=== PATIENT | female | born 1995 | race Caucasian/White ===

== ENCOUNTER 2019-09-23 18:46 | Emergency (ER) | payer MEDICAID, SELFPAY | END 2019-09-23 19:31 | disposition home or self-care (01) | PROVIDERS: Emergency Provider Emergency Medicine; Family Provider Physician Assistant; Visit Provider Emergency Medicine | DX: J11.1 Influenza due to unidentified influenza virus with other respiratory manifestations (principal); H66.001 Acute suppurative otitis media without spontaneous rupture of ear drum, right ear; J45.909 Unspecified asthma, uncomplicated | CPT/HCPCS: 71045; 96372; 99284; J0696; J1100; J2001 ==

== ENCOUNTER 2019-10-17 08:39 | Outpatient (CLI) | payer MEDICAID, SELFPAY ==
--- NOTE | 2019-10-17 08:44 | CT_ITS ---
WS: [id number] CT ABDOMEN AND PELVIS NONCONTRAST HISTORY: HEMATURIA TECHNIQUE: Imaging performed through the abdomen and pelvis. Coronal and sagittal reformats are submi tted. All CT scans at [facility] use at least one of these dose optimization techniques: automated exposure control; mA and/or kV adjustment per patient size (includes targeted exams where d ose is matched to clinical indication); or iterative reconstruction. DLP: 1028.26 mGy.cm COMPARISON: None available. Lower thorax: Lung bases are clear. No hiatal hernia. Liver: Normal, no mass or intrahepatic dilatation. Gallbladder: Unremarkable. Pancreas: Poorly visualized pancreas due to lack of contrast. No abnormality. Spleen: Normal. Adrenal glands: Normal. Right kidney: Normal size with no stones, masses or atrophy. Left kidney: Normal size with no stones, mass or atrophy. Abdominal aorta and IVC are unremarkable. No free fluid, intraperitoneal air or significant lymphadenopathy. GI tract: Unremarkable. Abdominal wall: Intact. Pelvis: Normal. Tiny calcific densities in the pelvis appear to be external to the urological system. Osseous structures: Unremarkable. CT/CT kidney stone [id number] IMPRESSION: 1. No renal or ureteral calcifications or obstruction. 2. Normal appendix. 3. Tiny calcific densities in the pelvis or external to the urological system and probably phleboliths.
== END 2019-10-17 08:40 | disposition home or self-care (01) ==
LOC: RAD 08:42
PROVIDERS: Family Provider Physician Assistant; PCP Physician Assistant; Visit Provider Nurse Practitioner Family
DX: N28.89 Other specified disorders of kidney and ureter (principal); R31.9 Hematuria, unspecified
CPT/HCPCS: 74176

== ENCOUNTER → 2019-11-19 07:32 | Outpatient (BNVA) | payer MEDICAID, SELFPAY | PROVIDERS: Family Provider Physician Assistant; PCP Physician Assistant; Visit Provider Nurse Practitioner Psychiatric/Mental Health | DX: F33.1 Major depressive disorder, recurrent, moderate (principal); F43.12 Post-traumatic stress disorder, chronic; F41.1 Generalized anxiety disorder; F71 Moderate intellectual disabilities | CPT/HCPCS: 99214 ==

== ENCOUNTER 2019-12-02 20:24 | Emergency (ER) | payer MEDICAID, SELFPAY ==
[2019-12-02 20:30] VITALS: BP 142/77; PULSE 108; RESP 17; TEMP 37.2; O2SAT 100; BMI 26.7
[2019-12-02 21:02] LABS: Basophils % 0.3 %; Eosinophils # 0.1 10^3/uL (0.0-0.8); Eosinophils % 0.8 %; Hematocrit 44.2 % (37.0-47.0); Hemoglobin 14.2 g/dL (11.5-15.3); Lymphocytes # 0.6 10^3/uL (0.8-4.8); Lymphocytes % 7.1 %; Mean Corpuscular HGB Conc 32.1 g/dL (30.0-36.0); Mean Corpuscular Volume 90.4 fL (81-99); Mean Platelet Volume 11.9 fL (7.4-10.4); Monocytes # 0.3 10^3/uL (0.2-0.9); Monocytes % 3.3 %; Neutrophils # 7.9 10^3/uL (1.8-7.7); Neutrophils % 88.3 %; Nucleated Red Blood Cells % 0 %; Platelet Count 279 10^3/cmm (130-400); Red Blood Count 4.89 10^6/uL (4.1-5.3)
[2019-12-02 22:09] LABS: Alanine Aminotransferase 14 U/L (0-33); Albumin Level 4.4 g/dL (3.5-5.2); Alkaline Phosphatase 78 IU/L (35-105); Anion Gap 20.6 (5-19); Blood Urea Nitrogen 12 mg/dL (6-20); Calcium 9.2 mg/dL (8.5-10.5); Carbon Dioxide 17 mmol/L (22-29); Chloride 105 mmol/L (98-107); Globulin 3.1 g/dL (1.3-4.6); Glomerular Filtration Rate 104.6 mL/min (90-130); Glucose 83 mg/dL (65-115); Osmolality Calculated 281 mOsm/kg (285-295); Potassium 4.6 mmol/L (3.5-5.1); Sodium 138 mmol/L (136-145); Total Bilirubin 0.4 mg/dL (0.15-1.2); Total Protein 7.5 g/dL (6.6-8.7)
[2019-12-02 22:15] LABS: Aspartate Amino Transferase 20 U/L (0-32)
--- NOTE | 2019-12-02 23:37 | ED_ITS ---
Entered by Elsa Han, acting as scribe for Hernandez Mcgee MD Dec 02, 2019 20:24 HPI - Abdominal Pain General: Chief Complaint: Abdominal Pain Stated Complaint: ABD PAIN/BACK PAIN Time Seen by Provider: 12/02/19 23:30 Source: patient Mode of arrival: ambulatory Limitations: no limitations History of Present Illness: HPI narrative: 24 yo f came to the er pov for abd pain and back pain. Pt states that she has had some diarrhea, nausea, vomiting and black stools. Onset was last night. PTs pcp is at [facility]. Pt said that her abd pain is epigastric in nature. States it is worse with eating. MD elicited complaint: abdominal pain and other (back pain) Onset (ago): day(s) (yesterday) Pain Consistency: constant Location: None Severity: mild Quality: sharp Migration to: no migration Relieving factors: nothing Associated Symptoms: Reports change in bowel habits (dark stool ), diarrhea, nausea and vomiting; Denies chills, dysuria and fever(s) Related Data: Patient : No Review of Systems General: Reports: other (negative unless marked) Const: Denies: fever, chills, body aches or change in appetite Eyes: Denies: blurry vision or eye discomfort ENMT: Denies: throat pain or dental pain Card: Denies: chest pain Resp: Denies: shortness of breath GI: Reports: nausea, vomiting, diarrhea and change in bowel habits (dark stool ) : Denies: painful urination Musc: Denies: neck pain or back pain Skin/Breast: Denies: rash Neuro: Denies: headache Psych: Denies: depression Jarred/Lymph: Denies: easy bruising All/Imm: Denies: hives PFSH ED PFSH: Medical History Chronic post-traumatic stress disorder Generalized anxiety disorder Major depressive disorder, recurrent episode, moderate with anxious distress Moderate intellectual disabilities Social History Smoking and tobacco status: never smoked Second hand smoke exposure: Yes Alcohol intake: never Adopted: No Caregiver/support person: Yes Lives independently: No Household members: family Marital status: Single service: No Current occupational status: disabled Current gender identity: Female Physical Exam Const: COMMON NORMALS: no apparent distress, oriented x3 and healthy appearing HENMT: COMMON NORMALS: normocephalic and head/scalp atraumatic HEAD & SCALP: normocephalic and atraumatic Eye: COMMON NORMALS: PERRL and EOMs intact bilaterally PUPIL: Yes PERRL Neck/C-Spine: COMMON NORMALS: full ROM and supple Chest: COMMONS NORMALS: inspection of chest normal and palpation of chest normal Resp: COMMON NORMALS: normal respiratory effort, no retractions, no use of accessory muscles and clear to auscultation bilaterally AUSCULTATION: clear to auscultation bilaterally Cardio: COMMON NORMALS: regular rate, regular rhythm and no murmurs RATE: regular rate RHYTHM: regular rhythm GI: COMMON NORMALS: normal to inspection, nondistended, normoactive bowel sounds, soft to palpation, non-tender and no masses PALPATION: Yes soft Extremity: COMMON NORMALS: normal to inspection and full ROM Neuro: COMMON NORMALS: oriented x3, moves all extremities and no focal motor deficits Psych: COMMON NORMALS: mental status grossly normal, thought process normal and cooperative THOUGHT PROCESS: normal thought process Skin: COMMON NORMALS: no rashes or lesions noted and no wounds GENERAL SKIN EXAM: no rashes or lesions noted Course Vital Signs: Vital signs: Vital Signs Temperature 98.9 F 12/02/19 20:30 Pulse Rate 102 H 12/03/19 01:26 Respiratory Rate 18 12/03/19 01:26 Blood Pressure 106/81 12/03/19 01:26 Pulse Oximetry 99 12/03/19 01:26 MDM - Abdominal Pain MDM Narrative: Medical decision making narrative: Patient presents with epigastric abdominal pain that is likely gastritis in nature. GI cocktail completely took her pain away and her abdominal exam here is benign at discharge. She has no signs of cholecystitis or appendicitis. Patient's lab work here is normal. Will prescribe her Prilosec and she is to follow-up with her primary care doctor in 3 to 5 days return to the ER if worsening. Lab Data: Labs: Lab Results 12/02/19 12/02/19 12/02/19 Range/Units 00:07 20:49 21:50 WBC 9.0 (4.0-10.0) 10^3/ uL RBC 4.89 (4.1-5.3) 10^6/u L Hgb 14.2 (11.5-15.3) g/dL Hct 44.2 (37.0-47.0) % MCV 90.4 (81-99) fL MCH 29.0 (28.0-34.0) pg MCHC 32.1 (30.0-36.0) g/dL RDW 14.0 (12.1-15.1) % Plt Count 279 (130-400) 10^3/c mm MPV 11.9 H (7.4-10.4) fL Neut % (Auto) 88.3 % Lymph % (Auto) 7.1 % Rich % (Auto) 3.3 % Eos % (Auto) 0.8 % Baso % (Auto) 0.3 % Neut # (Auto) 7.9 H (1.8-7.7) 10^3/u L Lymph # (Auto) 0.6 L (0.8-4.8) 10^3/u L Rich # (Auto) 0.3 (0.2-0.9) 10^3/u L Eos # (Auto) 0.1 (0.0-0.8) 10^3/u L Baso # (Auto) 0.0 (0.0-0.1) 10^3/u L Nucleated RBC % (a uto) 0 % Nucleated RBCs # 0.0 /100WBC Sodium 138 (136-145) mmol/L Potassium 4.6 (3.5-5.1) mmol/L Chloride 105 (98-107) mmol/L Carbon Dioxide 17 L (22-29) mmol/L Anion Gap 20.6 H (5-19) BUN 12 (6-20) mg/dL Creatinine 0.7 (0.5-0.9) mg/dL GFR Calculation 104.6 (90-130) mL/min Glucose 83 (65-115) mg/dL Calculated Osmolal ity 281 L (285-295) mOsm/k g Calcium 9.2 (8.5-10.5) mg/dL Total Bilirubin 0.4 (0.15-1.2) mg/dL AST 20 (0-32) U/L ALT 14 (0-33) U/L Alkaline Phosphata se 78 (35-105) IU/L Total Protein 7.5 (6.6-8.7) g/dL Albumin 4.4 (3.5-5.2) g/dL Globulin 3.1 (1.3-4.6) g/dL Lipase 27 (13-60) U/L HCG, Qual (Negative) 12/02/19 Range/Units 23:30 WBC (4.0-10.0) 10^3/ uL RBC (4.1-5.3) 10^6/u L Hgb (11.5-15.3) g/dL Hct (37.0-47.0) % MCV (81-99) fL MCH (28.0-34.0) pg MCHC (30.0-36.0) g/dL RDW (12.1-15.1) % Plt Count (130-400) 10^3/c mm MPV (7.4-10.4) fL Neut % (Auto) % Lymph % (Auto) % Rich % (Auto) % Eos % (Auto) % Baso % (Auto) % Neut # (Auto) (1.8-7.7) 10^3/u L Lymph # (Auto) (0.8-4.8) 10^3/u L Rich # (Auto) (0.2-0.9) 10^3/u L Eos # (Auto) (0.0-0.8) 10^3/u L Baso # (Auto) (0.0-0.1) 10^3/u L Nucleated RBC % (a uto) % Nucleated RBCs # /100WBC Sodium (136-145) mmol/L Potassium (3.5-5.1) mmol/L Chloride (98-107) mmol/L Carbon Dioxide (22-29) mmol/L Anion Gap (5-19) BUN (6-20) mg/dL Creatinine (0.5-0.9) mg/dL GFR Calculation (90-130) mL/min Glucose (65-115) mg/dL Calculated Osmolal ity (285-295) mOsm/k g Calcium (8.5-10.5) mg/dL Total Bilirubin (0.15-1.2) mg/dL AST (0-32) U/L ALT (0-33) U/L Alkaline Phosphata se (35-105) IU/L Total Protein (6.6-8.7) g/dL Albumin (3.5-5.2) g/dL Globulin (1.3-4.6) g/dL Lipase (13-60) U/L HCG, Qual Negative (Negative) Discharge Plan Discharge Patient Disposition: Home, Self-Care Clinical Impression: Abdominal pain Qualifiers: Abdominal location: epigastric Qualified Code(s): R10.13 - Epigastric pain Condition: Stable Prescriptions: New Prilosec OTC 20 mg tablet,delayed release (DR/EC) 20 mg PO DAILY 70 Days RF: 0 No Action sertraline [Zoloft] 100 mg tablet 100 mg PO .morning Qty: 30 RF: 3 trazodone 50 mg tablet 50 mg PO .bedtime PRN (Reason: sleep) Qty: 60 RF: 3 amoxicillin-pot clavulanate [Augmentin] 875-125 mg tablet 1 tab PO BID Qty: 20 RF: 0 promethazine-DM 6.25-15 mg/5 mL syrup 5 ml PO Q6H Qty: 150 RF: 0 fluticasone propionate [Flonase Allergy Relief] 50 mcg/actuation spray,suspension 1 spray INTRANASAL Q12H Qty: 9.9 RF: 0 Discharge Orders: Discharge Order (Routine); Ordered 12/03/19 Ordered By: Hernandez Mcgee Referrals: Diana Brooks PA [Primary Care Provider] - 1-3 days Discharge Diet: Advance as tolerated Discharge Activity: Resume usual activity Patient Instructions: Gastritis (ED), Abdominal Pain (ED) Discharge Date/Time: 12/03/19 01:27 Coding Level of Care Code ED Fire Equipment Operator for Chg Fwd The documentation recorded by the Guille gasca Stephanie Lyn, accurately reflects the service I personally performed and the decisions made by Everardo merchant Korby, MD Dec 02, 2019 20:24
[2019-12-02 23:39] VITALS: BP 126/77; PULSE 106; RESP 18; O2SAT 98
[2019-12-02 23:40] LABS: HCG Qualitative Urine. Negative (Negative)
[2019-12-02] MEDS: lidocaine 2% viscous 15 ML, aluminum-mag hydrox-simethicon 30 ML, sucralfate oral liq 1 GM PO (23:45)
[2019-12-02] MEDS: ondansetron 4 MG Tablet PO (23:45)
[2019-12-03 00:30] LABS: Lipase 27 U/L (13-60)
[2019-12-03 01:26] VITALS: BP 106/81; PULSE 102; RESP 18; O2SAT 99
== END 2019-12-03 01:27 | disposition home or self-care (01) ==
PROVIDERS: Emergency Provider Emergency Medicine; Family Provider Physician Assistant; PCP Physician Assistant
DX: R10.13 Epigastric pain (principal)
CPT/HCPCS: 12345; 36415; 80053; 81025; 83690; 85025; 99282; 99283; Q0162

== ENCOUNTER → 2020-01-10 08:19 | Outpatient (BNVA) | payer MEDICAID, SELFPAY | PROVIDERS: Family Provider Physician Assistant; PCP Physician Assistant; Visit Provider Nurse Practitioner Psychiatric/Mental Health | DX: F33.1 Major depressive disorder, recurrent, moderate (principal); F43.12 Post-traumatic stress disorder, chronic; F41.1 Generalized anxiety disorder; F71 Moderate intellectual disabilities; F33.2 Major depressive disorder, recurrent severe without psychotic features | CPT/HCPCS: 99214 ==

== ENCOUNTER → 2020-02-07 08:27 | Outpatient (BNVA) | payer MEDICAID, SELFPAY | PROVIDERS: Family Provider Physician Assistant; PCP Physician Assistant; Visit Provider Nurse Practitioner Psychiatric/Mental Health | DX: F33.1 Major depressive disorder, recurrent, moderate (principal); F43.12 Post-traumatic stress disorder, chronic; F41.1 Generalized anxiety disorder; F71 Moderate intellectual disabilities | CPT/HCPCS: 99214 ==

== ENCOUNTER 2020-02-25 12:08 | Emergency (ER) | payer MEDICAID, SELFPAY ==
[2020-02-25 12:19] VITALS: BP 138/84; PULSE 83; RESP 14; TEMP 36.8; O2SAT 98; BMI 29.5
--- NOTE | 2020-02-25 13:36 | ED_ITS ---
HPI - General Adult General: Chief complaint: General Medical Stated complaint: ear and throat pain Time Seen by Provider: 02/25/20 14:08 Source: patient Mode of arrival: ambulatory Limitations: no limitations History of Present Illness: HPI narrative: throat pain and ear pain x 1 week Review of Systems General: Reports: 10 or more systems reviewed and unremarkable except in HPI and below ENMT: Reports: throat pain, odynophagia, ear or mastoid pain and post nasal drip PFSH ED PFSH: Medical History Chronic post-traumatic stress disorder Generalized anxiety disorder Major depressive disorder, recurrent episode, moderate with anxious distress Moderate intellectual disabilities Social History Smoking and tobacco status: never smoked Second hand smoke exposure: Yes Alcohol intake: never Adopted: No Caregiver/support person: Yes Lives independently: No Household members: family Marital status: Single service: No Current occupational status: disabled Current gender identity: Female Physical Exam Const: COMMON NORMALS: no acute distress, patient oriented x3, no limitations and alert GENERAL APPEARANCE: cooperative and comfortable ORIENTATION/CONSCIOUSNESS: Yes awake, Yes oriented to person, Yes oriented to place and Yes oriented to time HENMT: COMMON NORMALS: normocephalic, atraumatic, external ears normal, EAC's normal, TM's normal bilaterally and Normal external nose present HEAD & SCALP: normal to inspection, normocephalic and atraumatic FACE & SINUS: normal facial exam, face symmetric, sinus tenderness frontal and maxillary and Facial tenderness on exam of face and sinuses NOSE: Normal external nose present, Normal nares present and No nasal discharge present EXTERNAL EAR: Yes external ears normal EXTERNAL AUDITORY CANAL: EAC's normal TYMPANIC MEMBRANE: TM's normal bilaterally MOUTH: Normal oral and palatal mucosa present, lip normal and tongue normal THROAT: posterior oropharynx normal, tonsils normal and uvula midline Eye: COMMON NORMALS: Equal, round and reactive pupils present, EOMs intact bilaterally and conjunctivae normal GENERAL EYE: appearance normal, both eyes and all related structures and normal light reflex EYELID: eyelids normal CONJUNCTIVA: Yes conjunctivae normal PUPIL: Yes Equal, round and reactive pupils present EOM: Yes EOM abnormal DIRECT OPHTHALMOSCOPY: Yes normal light reflex Neck/C-Spine: COMMON NORMALS: full ROM, no lymphadenopathy, supple, no meningeal signs, no JVD and Thyroid normal GENERAL: Yes normal visual inspection THYROID: Thyroid normal CERVICAL SPINE: Yes cervical ROM normal and Yes normal cervical lordosis Lymph: LYMPHATIC: no lymphadenopathy noted Chest: COMMONS NORMALS: normal inspection of the chest and normal palpation of entire chest wall Resp: COMMON NORMALS: normal respiratory effort, No retractions and clear to auscultation bilaterally AUSCULTATION: clear to auscultation bilaterally Cardio: COMMON NORMALS: no JVD, regular rate, regular rhythm, S1 normal heart sound present, S2 normal heart sound present, No gallops present (Cardio), No clicks present (Cardio), No murmurs present (Cardio), No rub (Cardio) and Peripheral pulses 2+ throughout RATE: regular rate RHYTHM: regular rhythm HEART SOUNDS: S1 normal heart sound present and S2 normal heart sound present PERIPHERAL PULSES: Peripheral pulses 2+ throughout GI: COMMON NORMALS: Normal to inspection, nondistended, normoactive bowel sounds present, Soft to palpation, non-tender and no masses PALPATION: Yes Soft to palpation : COMMON NORMALS: Yes no CVA tenderness and Yes normal external appearance BLADDER/KIDNEY EXAM: Yes no CVA tenderness Back/Pelvis: COMMON NORMALS: no CVA tenderness, thoracic and lumbar spine normal to inspection, no thoracic nor lumbar tenderness and thoraco-lumbar ROM normal Extremity: COMMON NORMALS: normal to inspection, full ROM, capillary refill normal, no joint enlargement, no clubbing, cyanosis or edema, no calf tenderness and no pedal edema GENERAL: Yes normal exam except as noted Neuro: COMMON NORMALS: patient oriented x3, moves all extremities, no focal motor deficits, no sensory deficits noted and gait normal SENSORIUM/ORIENTATION: Yes alert, Yes oriented to person, Yes oriented to place and Yes oriented to time MENINGEAL SIGNS: Yes no meningeal signs Psych: COMMON NORMALS: mental status grossly normal, Normal thought process present, cooperative, normal affect, speech normal and activity/motor behavior normal SPEECH: Yes normal speech THOUGHT PROCESS: Normal thought process present Skin: COMMON NORMALS: no rashes or lesions noted, no wounds and turgor normal GENERAL SKIN EXAM: no rashes or lesions noted and turgor normal Course ED course: Pt states that she has had pain in throat and ears x 1 week. Ears appear to have fluid behind TM and likely sinusitis due to facial tenderness. No fever. Will prescribe antihistamine and antibx with instructions to take benadryl tonight to help with fluid behind ears. Vital Signs: Vital signs: Vital Signs Temperature 98.3 F 02/25/20 12:19 Pulse Rate 83 02/25/20 12:19 Respiratory Rate 14 02/25/20 12:19 Blood Pressure 138/84 02/25/20 12:19 Pulse Oximetry 98 02/25/20 12:19 MDM - General Adult Lab Data: Labs: Lab Results 02/25/20 Range/Units 13:50 Group A Strep Rapi d Negative (Negative) Discharge Plan Discharge Patient Disposition: Home, Self-Care Clinical Impression: Sinusitis Condition: Stable Prescriptions: New Augmentin 875-125 mg tablet 1 tab PO BID Qty: 20 RF: 0 Marj Allergy 180 mg tablet 180 mg PO DAILY Qty: 20 RF: 0 No Action amoxicillin-pot clavulanate [Augmentin] 875-125 mg tablet 1 tab PO BID Qty: 20 RF: 0 promethazine-DM 6.25-15 mg/5 mL syrup 5 ml PO Q6H Qty: 150 RF: 0 fluticasone propionate [Flonase Allergy Relief] 50 mcg/actuation spray,suspension 1 spray INTRANASAL Q12H Qty: 9.9 RF: 0 sertraline [Zoloft] 100 mg tablet 100 mg PO .morning Qty: 30 RF: 3 hydroxyzine pamoate [Vistaril] 50 mg capsule 50 mg PO BID PRN (Reason: anxiety) Qty: 60 RF: 3 trazodone 100 mg tablet 100 mg PO .bedtime PRN (Reason: sleep) Qty: 30 RF: 3 Referrals: Diana Brooks PA [Primary Care Provider] - Discharge Diet: Advance as tolerated and Usual diet Discharge Activity: Resume usual activity Activity Restrictions/Additional Instructions: Please fill script if benadryl 50mg today does not help symptoms. Coding Level of Care Code ED Human Resource Adviser for Ed Byers
[2020-02-25 14:08] LABS: Rapid Strep A Test Negative (Negative)
[2020-02-25 15:35] VITALS: BP 131/81; PULSE 81; RESP 16; O2SAT 97
== END 2020-02-25 15:36 | disposition home or self-care (01) ==
PROVIDERS: Emergency Provider Nurse Practitioner Family; PCP Physician Assistant
DX: J32.9 Chronic sinusitis, unspecified (principal)
CPT/HCPCS: 12345; 87081; 87880; 99281; 99282

== ENCOUNTER → 2020-03-17 07:33 | Outpatient (BNVA) | payer MEDICAID, SELFPAY | PROVIDERS: PCP Physician Assistant; Visit Provider Nurse Practitioner Psychiatric/Mental Health | DX: F33.1 Major depressive disorder, recurrent, moderate (principal); F43.12 Post-traumatic stress disorder, chronic; F41.1 Generalized anxiety disorder; F71 Moderate intellectual disabilities | CPT/HCPCS: 99213 ==

== ENCOUNTER → 2020-05-14 09:40 | Outpatient (BNVA) | payer MEDICAID, SELFPAY | PROVIDERS: PCP Physician Assistant; Visit Provider Nurse Practitioner Family | DX: H66.92 Otitis media, unspecified, left ear (principal) | CPT/HCPCS: 87071; 87880 ==

== ENCOUNTER → 2020-06-09 09:28 | Outpatient (BNVA) | payer MEDICAID, SELFPAY | PROVIDERS: PCP Physician Assistant; Visit Provider Nurse Practitioner Psychiatric/Mental Health | DX: F33.1 Major depressive disorder, recurrent, moderate (principal); F43.12 Post-traumatic stress disorder, chronic; F41.1 Generalized anxiety disorder; F71 Moderate intellectual disabilities | CPT/HCPCS: 99214 ==

== ENCOUNTER → 2020-07-21 08:20 | Outpatient (BNVA) | payer MEDICAID, SELFPAY | PROVIDERS: PCP Physician Assistant; Visit Provider Nurse Practitioner Psychiatric/Mental Health | DX: F33.1 Major depressive disorder, recurrent, moderate (principal); F43.12 Post-traumatic stress disorder, chronic; F41.1 Generalized anxiety disorder; F71 Moderate intellectual disabilities | CPT/HCPCS: 99214 ==

== ENCOUNTER → 2020-08-05 07:31 | Outpatient (BNVA) | payer MEDICAID, SELFPAY | PROVIDERS: PCP Physician Assistant; Visit Provider Nurse Practitioner Psychiatric/Mental Health | DX: F33.1 Major depressive disorder, recurrent, moderate (principal); F43.12 Post-traumatic stress disorder, chronic; F41.1 Generalized anxiety disorder; F71 Moderate intellectual disabilities | CPT/HCPCS: 99214 ==

== ENCOUNTER 2020-08-12 16:17 | Emergency (ER) | payer MEDICAID, SELFPAY ==
[2020-08-12 16:31] VITALS: BP 132/79; PULSE 100; RESP 18; TEMP 37.1; O2SAT 96; BMI 35.4
--- NOTE | 2020-08-12 18:23 | W.ED.EYEPROB ---
HPI - Eye Problem General: Chief complaint: Eye Problems Stated complaint: EYE PAIN Time Seen by Provider: 08/12/20 17:26 Source: patient Mode of arrival: ambulatory Limitations: no limitations History of Present Illness: HPI Narrative: 25-year-old female patient presents to the emergency department with complaints of bilateral eye burning. She reports burning since starting new medication Cyproheptadine. Her mother reports started medication on 08/07/2020. She reports called the physician who advised patient to follow-up in the emergency department. Mother states she stopped medication 2 days ago. Holiday reports continued burning sensation, eye dryness with gritty feeling. She states has not applied any eyedrops to the eyes. She denies trauma, denies wearing contacts. She denies drainage from the eyes or eye pain. Associated symptoms: Denies fever(s), headache(s), nausea or vomiting Related Data: Patient tetanus UTD: Yes Review of Systems General: Reports: 10 or more systems reviewed and unremarkable except in HPI and below Const: Denies: fever(s), chills or diaphoresis Eyes: Reports: eye discomfort (Burning, dryness) and dry eyes; Denies: change in vision, blurry vision, photophobia, eye discharge, eye redness, increased production of tears, floaters or seeing flashes ENMT: Denies: throat pain, dental pain or disequilibrium Card: Denies: chest pain, palpitations or irregular heart rhythm Resp: Denies: dyspnea, productive cough, non-productive cough or wheezing GI: Denies: abdominal pain, nausea or vomiting : Denies: difficulty voiding or dysuria Musc: Denies: back pain Skin/Breast: Denies: rash or pruritus Neuro: Denies: headache(s), weakness in extremities or behavioral changes Psych: Reports: anxiety, depression and other (Nightmares); Denies: tactile hallucinations or suicidal ideation Jarred/Lymph: Denies: easy bruising PFSH ED PFSH: Medical History (Updated 08/12/20 @ 18:24 by HEATH Goldberg) Chronic post-traumatic stress disorder Generalized anxiety disorder Major depressive disorder, recurrent episode, moderate with anxious distress Moderate intellectual disabilities Social History Smoking and tobacco status: never smoked Second hand smoke exposure: Yes Alcohol intake: never Adopted: No Caregiver/support person: Yes Lives independently: No Household members: family Marital status: Single service: No Current occupational status: disabled Current gender identity: Female Physical Exam Const: COMMON NORMALS: no acute distress, patient oriented x3, healthy appearing and alert GENERAL APPEARANCE: cooperative, comfortable and well hydrated HENMT: COMMON NORMALS: normocephalic, Normal external nose present and moist oral mucous membranes HEAD & SCALP: normocephalic NOSE: Normal external nose present Eye: COMMON NORMALS: Equal, round and reactive pupils present, EOMs intact bilaterally, conjunctivae normal, no scleral icterus, no papilledema and normal visual fragoso by confrontation GENERAL EYE: appearance normal, both eyes and all related structures, normal light reflex and no exophthalmos VISUAL ACUITY: Yes visual acuity right eye Visual acuity (R) = 20/: 20 and Yes visual acuity left eye Visual acuity (L) = 20/: 20 VISUAL FRAGOSO: No peripheral vision loss ALIGNMENT: Yes alignment normal PERIORBITAL: periorbital findings normal EYELID: eyelids normal CONJUNCTIVA: Yes conjunctivae normal SCLERA: sclerae normal CORNEA: Yes corneas normal and fluorescein used PUPIL: Yes Equal, round and reactive pupils present, Yes pupil size - right Right pupil size (mm): 4 and Yes pupil size - left Left pupil size (mm): 4 DIRECT OPHTHALMOSCOPY: Yes normal light reflex and Yes no papilledema Neck/C-Spine: COMMON NORMALS: full ROM and no lymphadenopathy GENERAL: Yes normal visual inspection and Yes trachea midline CERVICAL SPINE: Yes cervical ROM normal Lymph: LYMPHATIC: no lymphadenopathy noted Chest: COMMONS NORMALS: normal inspection of the chest Resp: COMMON NORMALS: normal respiratory effort and clear to auscultation bilaterally AUSCULTATION: clear to auscultation bilaterally Cardio: COMMON NORMALS: regular rhythm, S1 normal heart sound present and S2 normal heart sound present RHYTHM: regular rhythm HEART SOUNDS: S1 normal heart sound present and S2 normal heart sound present GI: COMMON NORMALS: Soft to palpation and non-tender INSPECTION: Yes normal to inspection PALPATION: Yes Soft to palpation : COMMON NORMALS: Yes no CVA tenderness BLADDER/KIDNEY EXAM: Yes no CVA tenderness Back/Pelvis: COMMON NORMALS: no CVA tenderness and thoracic and lumbar spine normal to inspection Extremity: COMMON NORMALS: normal to inspection and capillary refill normal Neuro: COMMON NORMALS: patient oriented x3 and no focal motor deficits SENSORIUM/ORIENTATION: Yes alert Psych: COMMON NORMALS: mental status grossly normal, Normal thought process present and cooperative ACTIVITY/MOTOR BEHAVIOR: Yes appropriate eye contact THOUGHT PROCESS: Normal thought process present Skin: COMMON NORMALS: no rashes or lesions noted and turgor normal GENERAL SKIN EXAM: no rashes or lesions noted and turgor normal Course ED course: Eye-Stream placed into both eyes prior to fluorescein stain with tetracaine. She reports Eye-Stream did help with pain and burning. Fluorescein stain did not reveal corneal abrasion or lacerations. Vital Signs: Vital signs: Vital Signs Temperature 98.7 F 08/12/20 16:31 Pulse Rate 100 08/12/20 16:31 Respiratory Rate 18 08/12/20 16:31 Blood Pressure 132/79 08/12/20 16:31 Pulse Oximetry 96 08/12/20 16:31 Discharge Plan Discharge Patient Disposition: Home Clinical Impression: Dry eye syndrome of both eyes Condition: Stable Prescriptions: New Refresh Liquigel 1 % drops, liquid gel 1 drp ophthalmic (eye) Q6H PRN (Reason: dry eye(s)) Qty: 15 RF: 0 No Action hydroxyzine pamoate [Vistaril] 50 mg capsule 50 mg PO BID PRN (Reason: anxiety) Qty: 60 RF: 3 cetirizine [Zyrtec] 10 mg tablet 10 mg PO DAILY PRN (Reason: allergy symptoms) Qty: 30 RF: 0 cyproheptadine 4 mg tablet 4 mg PO BEDTIME RF: 0 ibuprofen 200 mg Tablet 600 mg PO PRN RF: 0 trazodone 50 mg tablet 50 mg PO BEDTIME PRN (Reason: sleep) RF: 0 Zoloft 100 mg tablet 200 mg PO QAM RF: 0 Discharge Orders: Discharge Order (Routine); Ordered 08/12/20 Ordered By: Maggie Pan Referrals: Diana Brooks PA [Primary Care Provider] - Discharge Diet: Usual diet Discharge Activity: Resume usual activity Patient Instructions: Eye Lubricant (Into the eye), Dry Eye Activity Restrictions/Additional Instructions: Apply eye lubrication, refresh eyedrops as directed as needed for burning of the eye Contact your psychiatrist due to cessation of Cyproheptadine Cool compresses to the eyes as needed for burning/eye irritation Avoid rubbing the eyes Drink plenty of fluids as use of antihistamines will cause dryness If you develop eye pain, difficulty with vision, fever or purulent eye drainage, return to the emergency department immediately Coding Level of Care Code ED Dealer Account Manager for Ed Fwd Exam Comprehensive
== END 2020-08-12 18:48 | disposition home or self-care (01) ==
PROVIDERS: Emergency Provider Nurse Practitioner Family; PCP Physician Assistant
DX: H04.123 Dry eye syndrome of bilateral lacrimal glands (principal); Z77.22 Contact with and (suspected) exposure to environmental tobacco smoke (acute) (chronic)
CPT/HCPCS: 12345; 99281; 99283

== ENCOUNTER → 2020-09-02 07:32 | Outpatient (BNVA) | payer MEDICAID, SELFPAY | PROVIDERS: PCP Physician Assistant; Visit Provider Nurse Practitioner Psychiatric/Mental Health | DX: F33.1 Major depressive disorder, recurrent, moderate (principal); F43.12 Post-traumatic stress disorder, chronic; F41.1 Generalized anxiety disorder; F71 Moderate intellectual disabilities | CPT/HCPCS: 99213 ==

== ENCOUNTER → 2020-09-22 10:58 | Outpatient (BNVA) | payer MEDICAID, SELFPAY | PROVIDERS: PCP Physician Assistant; Visit Provider Nurse Practitioner Family | DX: B37.3 Candidiasis of vulva and vagina (principal) | CPT/HCPCS: 81000; 87086 ==

== ENCOUNTER → 2020-10-29 10:25 | Outpatient (BNVA) | payer MEDICAID, SELFPAY | PROVIDERS: PCP Physician Assistant; Visit Provider Nurse Practitioner Psychiatric/Mental Health | DX: F33.1 Major depressive disorder, recurrent, moderate (principal); F43.12 Post-traumatic stress disorder, chronic; F41.1 Generalized anxiety disorder; F71 Moderate intellectual disabilities | CPT/HCPCS: 99214 ==

== ENCOUNTER 2020-12-07 19:47 | Emergency (ER) | payer MEDICAID, SELFPAY ==
[2020-12-07 20:28] VITALS: BP 118/76; PULSE 90; RESP 16; TEMP 36.3; O2SAT 97; BMI 35.4
--- NOTE | 2020-12-07 20:58 | W.ED.GENADLT ---
HPI - General Adult General: Chief complaint: Vaginal Bleeding Stated complaint: EXCESSIVE VAGINAL BLEEDING Time Seen by Provider: 12/07/20 20:52 Source: patient, family and RN notes reviewed Limitations: no limitations History of Present Illness: HPI narrative: This patient is a 25-year-old female who presents to the emergency department for excessive vaginal bleeding. Patient states she did not have a period last month but then started bleeding this month. Patient denies any cramping with this so she does not think slacker normal. Patient denies any sexual activity. Patient states sometimes she gets lightheaded when she stands up. Onset (ago): day(s) (5) Severity: mild Pain Consistency: intermittent Associated symptoms: Deny chest pain, dyspnea, headache(s), nausea, rash, palpitations or vomiting Review of Systems General: Reports: 10 or more systems reviewed and unremarkable except in HPI and below Const: Denies: fever(s), chills, body aches or fatigue Eyes: Denies: change in vision or blurry vision ENMT: Denies: throat pain, hoarseness or mouth pain Card: Denies: chest pain or palpitations Resp: Denies: dyspnea GI: Denies: nausea or vomiting : Reports: flank pain and vaginal bleeding; Denies: difficulty voiding, dysuria, urinary frequency, urinary urgency or urinary hesitancy Musc: Denies: neck pain, back pain, extremity pain, extremity swelling, joint pain, joint swelling, joint redness, joint warmth or limited range of motion Skin/Breast: Denies: rash Neuro: Denies: headache(s) Psych: Denies: anxiety or depression PFSH ED PFSH: Medical History Chronic post-traumatic stress disorder Depressed Generalized anxiety disorder Major depressive disorder, recurrent episode, moderate with anxious distress Moderate intellectual disabilities Unspecified asthma, uncomplicated Surgical History No pertinent past surgical history Social History Smoking and tobacco status: never smoked Second hand smoke exposure: Yes Alcohol intake: never Adopted: No Caregiver/support person: Yes Lives independently: No Household members: family Marital status: Single service: No Current occupational status: disabled Current gender identity: Female Physical Exam Const: COMMON NORMALS: no acute distress, average body habitus, patient oriented x3, no limitations, healthy appearing, alert and well nourished HENMT: COMMON NORMALS: normocephalic, atraumatic, external ears normal, EAC's normal, TM's normal bilaterally, Normal external nose present and Normal nasal mucous membranes and turbinates present HEAD & SCALP: normocephalic and atraumatic NOSE: Normal external nose present and Normal nasal mucous membranes and turbinates present EXTERNAL EAR: Yes external ears normal EXTERNAL AUDITORY CANAL: EAC's normal TYMPANIC MEMBRANE: TM's normal bilaterally Neck/C-Spine: COMMON NORMALS: full ROM, no lymphadenopathy, supple, no meningeal signs, no JVD, Thyroid normal and No carotid bruits THYROID: Thyroid normal Chest: COMMONS NORMALS: normal inspection of the chest, normal palpation of entire chest wall, normal inspection of the breasts and normal palpation of the breasts Breast/axilla inspection: Yes normal inspection of the breasts BREAST/AXILLA PALPATION: Yes normal palpation of the breasts Resp: COMMON NORMALS: normal respiratory effort, No retractions, No use of accessory muscles, clear to auscultation bilaterally and percussion normal AUSCULTATION: clear to auscultation bilaterally PERCUSSION: percussion normal Cardio: COMMON NORMALS: no JVD, regular rate, regular rhythm, S1 normal heart sound present, S2 normal heart sound present, No gallops present (Cardio), No clicks present (Cardio), No murmurs present (Cardio), No rub (Cardio) and Peripheral pulses 2+ throughout RATE: regular rate RHYTHM: regular rhythm HEART SOUNDS: S1 normal heart sound present and S2 normal heart sound present PERIPHERAL PULSES: Peripheral pulses 2+ throughout GI: COMMON NORMALS: Normal to inspection, nondistended, normoactive bowel sounds present, Soft to palpation, non-tender, No hepatosplenomegaly present, no masses and no bruits PALPATION: Yes Soft to palpation and Yes No hepatosplenomegaly present : OTHER: Exam deferred Back/Pelvis: COMMON NORMALS: thoracic and lumbar spine normal to inspection, no thoracic nor lumbar tenderness, thoraco-lumbar ROM normal and straight leg raise negative bilaterally Extremity: COMMON NORMALS: normal to inspection, full ROM, capillary refill normal, no joint enlargement, no clubbing, cyanosis or edema, no calf tenderness and no pedal edema Neuro: COMMON NORMALS: patient oriented x3 SENSORIUM/ORIENTATION: Yes alert MENINGEAL SIGNS: Yes no meningeal signs Course Reevaluation(s): Reevaluation #1: Patient is stable no complaints. Time: 22:57 Vital Signs: Vital signs: Vital Signs Temperature 97.3 F L 12/07/20 20:28 Pulse Rate 90 12/07/20 20:28 Respiratory Rate 16 12/07/20 20:28 Blood Pressure 126/70 12/07/20 22:13 Pulse Oximetry 97 12/07/20 20:28 [facility] - General Adult Lab Data: Attestation: I reviewed the patient's lab results. Labs: Lab Results 12/07/20 12/07/20 12/07/20 Range/Units 21:07 21:07 21:43 WBC 9.4 (4.0-10.0) 10^3/ uL RBC 4.45 (4.1-5.3) 10^6/u L Hgb 12.6 (11.5-15.3) g/dL Hct 39.5 (37.0-47.0) % MCV 88.8 (81-99) fL MCH 28.3 (28.0-34.0) pg MCHC 31.9 (30.0-36.0) g/dL RDW 13.2 (12.1-15.1) % Plt Count 355 (130-400) 10^3/c mm MPV 11.2 H (7.4-10.4) fL Neut % (Auto) 72.4 % Lymph % (Auto) 17.3 % Sequoyah % (Auto) 6.8 % Eos % (Auto) 2.4 % Baso % (Auto) 0.9 % Neut # (Auto) 6.77 (1.8-7.7) 10^3/u L Lymph # (Auto) 1.6 (0.8-4.8) 10^3/u L Sequoyah # (Auto) 0.6 (0.2-0.9) 10^3/u L Eos # (Auto) 0.2 (0.0-0.8) 10^3/u L Baso # (Auto) 0.1 (0.0-0.1) 10^3/u L Nucleated RBC % (a uto) 0 % Nucleated RBCs # 0.0 /100WBC Sodium 139 (136-145) mmol/L Potassium 3.8 (3.5-5.1) mmol/L Chloride 104 (98-107) mmol/L Carbon Dioxide 25 (22-29) mmol/L Anion Gap 13.8 (5-19) BUN 10 (6-20) mg/dL Creatinine 0.6 (0.5-0.9) mg/dL GFR Calculation 123.9 (90-130) mL/min Glucose 85 (65-115) mg/dL Calculated Osmolal ity 286 (285-295) mOsm/k g Calcium 9.0 (8.5-10.5) mg/dL Total Bilirubin 0.2 (0.15-1.2) mg/dL AST 13 (0-32) U/L ALT 17 (0-33) U/L Alkaline Phosphata se 106 H (35-105) IU/L Total Protein 8.1 (6.6-8.7) g/dL Albumin 4.3 (3.5-5.2) g/dL Globulin 3.8 (1.3-4.6) g/dL HCG, Qual Negative (Negative) Urine Color (Yellow) Urine Appearance (CLEAR) Urine pH (5-7) Ur Specific Gravit y (1.005-1.030) Urine Protein (Negative) Urine Glucose (UA) (Normal) Urine Ketones (Negative) Urine Blood (Negative) Urine Nitrate (Negative) Urine Bilirubin (Negative) Urine Urobilinogen (Negative) mg/dL Ur Leukocyte Irais ase (Negative) 12/07/20 Range/Units 21:43 WBC (4.0-10.0) 10^3/ uL RBC (4.1-5.3) 10^6/u L Hgb (11.5-15.3) g/dL Hct (37.0-47.0) % MCV (81-99) fL MCH (28.0-34.0) pg MCHC (30.0-36.0) g/dL RDW (12.1-15.1) % Plt Count (130-400) 10^3/c mm MPV (7.4-10.4) fL Neut % (Auto) % Lymph % (Auto) % Sequoyah % (Auto) % Eos % (Auto) % Baso % (Auto) % Neut # (Auto) (1.8-7.7) 10^3/u L Lymph # (Auto) (0.8-4.8) 10^3/u L Sequoyah # (Auto) (0.2-0.9) 10^3/u L Eos # (Auto) (0.0-0.8) 10^3/u L Baso # (Auto) (0.0-0.1) 10^3/u L Nucleated RBC % (a uto) % Nucleated RBCs # /100WBC Sodium (136-145) mmol/L Potassium (3.5-5.1) mmol/L Chloride (98-107) mmol/L Carbon Dioxide (22-29) mmol/L Anion Gap (5-19) BUN (6-20) mg/dL Creatinine (0.5-0.9) mg/dL GFR Calculation (90-130) mL/min Glucose (65-115) mg/dL Calculated Osmolal ity (285-295) mOsm/k g Calcium (8.5-10.5) mg/dL Total Bilirubin (0.15-1.2) mg/dL AST (0-32) U/L ALT (0-33) U/L Alkaline Phosphata se (35-105) IU/L Total Protein (6.6-8.7) g/dL Albumin (3.5-5.2) g/dL Globulin (1.3-4.6) g/dL HCG, Qual (Negative) Urine Color Yellow (Yellow) Urine Appearance Clear (CLEAR) Urine pH 6.5 (5-7) Ur Specific Gravit y 1.015 (1.005-1.030) Urine Protein Neg (Negative) Urine Glucose (UA) Norm (Normal) Urine Ketones Negative (Negative) Urine Blood Neg (Negative) Urine Nitrate Negative (Negative) Urine Bilirubin Neg (Negative) Urine Urobilinogen Norm (Negative) mg/dL Ur Leukocyte Irais ase Negative (Negative) Discharge Plan Discharge Patient Disposition: Home Clinical Impression: Vaginal bleeding Condition: Stable Prescriptions: No Action fluconazole [Diflucan] 150 mg tablet 150 mg PO Q3D Qty: 2 RF: 0 cyproheptadine 4 mg tablet 4 mg PO BEDTIME Qty: 30 RF: 6 hydroxyzine pamoate [Vistaril] 50 mg capsule 50 mg PO BID PRN (Reason: anxiety) Qty: 60 RF: 6 Zoloft 100 mg tablet 200 mg PO QAM Qty: 60 RF: 6 trazodone 50 mg tablet 50 mg PO BEDTIME PRN (Reason: sleep) Qty: 30 RF: 6 omeprazole 20 mg capsule,delayed release(DR/EC) 20 mg PO BID Qty: 60 RF: 0 amoxicillin-pot clavulanate [Augmentin] 875-125 mg tablet 1 tab PO BID 10 Days Qty: 20 RF: 0 cetirizine [Zyrtec] 10 mg tablet 10 mg PO DAILY PRN (Reason: allergy symptoms) Qty: 30 RF: 5 ibuprofen 200 mg Tablet 600 mg PO PRN RF: 0 Refresh Liquigel 1 % drops, liquid gel 1 drp ophthalmic (eye) Q6H PRN (Reason: dry eye(s)) Qty: 15 RF: 0 Discharge Orders: Discharge ED (Routine); Ordered 12/07/20 Ordered By: Oracio Chavez Referrals: Diana Brooks PA [Primary Care Provider] - Discharge Diet: Advance as tolerated Discharge Activity: Resume usual activity Patient Instructions: Opioid Safety Activity Restrictions/Additional Instructions: Follow-up with your primary care physician to discuss further vaginal bleeding if not resolved in 2 to 3 days. Tylenol Motrin as needed for abdominal cramping. Eat a healthy diet. Coding Level of Care Code ED Costume Shop Coordinator for Ed Fwd Exam Comprehensive
[2020-12-07] MEDS: sodium chloride 0.9% 1,000 ML 999 ML IV (21:11)
[2020-12-07 21:19] LABS: Basophils # 0.1 10^3/uL (0.0-0.1); Basophils % 0.9 %; Eosinophils # 0.2 10^3/uL (0.0-0.8); Eosinophils % 2.4 %; Hematocrit 39.5 % (37.0-47.0); Hemoglobin 12.6 g/dL (11.5-15.3); Lymphocytes # 1.6 10^3/uL (0.8-4.8); Lymphocytes % 17.3 %; Mean Corpuscular HGB Conc 31.9 g/dL (30.0-36.0); Mean Corpuscular Hemoglobin 28.3 pg (28.0-34.0); Mean Corpuscular Volume 88.8 fL (81-99); Mean Platelet Volume 11.2 fL (7.4-10.4); Monocytes # 0.6 10^3/uL (0.2-0.9); Monocytes % 6.8 %; Neutrophils # 6.77 10^3/uL (1.8-7.7); Neutrophils % 72.4 %; Nucleated Red Blood Cells % 0 %; Platelet Count 355 10^3/cmm (130-400); Red Blood Count 4.45 10^6/uL (4.1-5.3); Red Cell Distribution Width 13.2 % (12.1-15.1); White Blood Count 9.4 10^3/uL (4.0-10.0)
[2020-12-07 21:37] LABS: Alanine Aminotransferase 17 U/L (0-33); Albumin Level 4.3 g/dL (3.5-5.2); Alkaline Phosphatase 106 IU/L (35-105); Anion Gap 13.8 (5-19); Aspartate Amino Transferase 13 U/L (0-32); Blood Urea Nitrogen 10 mg/dL (6-20); Carbon Dioxide 25 mmol/L (22-29); Chloride 104 mmol/L (98-107); Globulin 3.8 g/dL (1.3-4.6); Glomerular Filtration Rate 123.9 mL/min (90-130); Glucose 85 mg/dL (65-115); Osmolality Calculated 286 mOsm/kg (285-295); Potassium 3.8 mmol/L (3.5-5.1); Sodium 139 mmol/L (136-145); Total Bilirubin 0.2 mg/dL (0.15-1.2); Total Protein 8.1 g/dL (6.6-8.7)
[2020-12-07 21:44] LABS: Add Urine Microscopic? NO
[2020-12-07 21:50] LABS: Bilirubin Urine Neg (Negative); Blood Urine Neg (Negative); Glucose Urine UA Norm (Normal); HCG Qualitative Urine. Negative (Negative); Ketones Urine Negative (Negative); Leukocyte Esterase Urine Negative (Negative); Nitrate Urine Negative (Negative); Protein Urine Neg (Negative); Specific Gravity, Urine 1.015 (1.005-1.030); Urine Appearance Clear (CLEAR); Urine Color Yellow (Yellow); Urobilinogen Urine Norm (Negative); pH Urine 6.5 (5-7)
[2020-12-07 22:13] VITALS: BP 126/70; BP 130/77; BP 134/76
[2020-12-07 23:12] VITALS: BP 113/76; PULSE 78; RESP 18; O2SAT 99
== END 2020-12-07 23:12 | disposition home or self-care (01) ==
PROVIDERS: Emergency Provider Emergency Medicine; PCP Physician Assistant
DX: N93.9 Abnormal uterine and vaginal bleeding, unspecified (principal); Z77.22 Contact with and (suspected) exposure to environmental tobacco smoke (acute) (chronic)
CPT/HCPCS: 80053; 81003; 81025; 85025; 96360; 99283; J7030

== ENCOUNTER → 2020-12-10 11:00 | Outpatient (BNVA) | payer MEDICAID, SELFPAY | PROVIDERS: PCP Physician Assistant; Visit Provider Nurse Practitioner Family | DX: N93.9 Abnormal uterine and vaginal bleeding, unspecified (principal) | CPT/HCPCS: 80053; 84443; 85025 ==

== ENCOUNTER → 2021-01-21 08:41 | Outpatient (BNVA) | payer MEDICAID, SELFPAY | PROVIDERS: PCP Physician Assistant; Visit Provider Nurse Practitioner Psychiatric/Mental Health | DX: F33.1 Major depressive disorder, recurrent, moderate (principal); F43.12 Post-traumatic stress disorder, chronic; F41.1 Generalized anxiety disorder; F71 Moderate intellectual disabilities | CPT/HCPCS: 99213 ==

== ENCOUNTER 2021-01-28 04:32 | Observation (INO) | payer MEDICAID, SELFPAY ==
[2021-01-28 04:33] VITALS: BMI 30.1
--- NOTE | 2021-01-28 04:40 | W.ED.PSYCH ---
HPI - Psych General: Chief Complaint: Psychiatric Symptoms Stated Complaint: SI Time Seen by Provider: 01/28/21 04:35 Source: patient and EMS Mode of arrival: EMS Limitations: no limitations History of Present Illness: HPI Narrative: 25-year-old female who states she is been having increasing depression over the last week with suicidal ideations over the last 2 days. States she thought about cutting her arms. She states she has no specific suicidal plan other than cutting. She denies any worsening proving factors. She is voluntarily wanting to get help. She states she was admitted here in the psychiatric [facility] roughly 2 to 3 years ago. Associated symptoms: Reports suicidal ideation Review of Systems Const: Denies: fever(s), chills, body aches or change in appetite Eyes: Denies: blurry vision or eye discomfort ENMT: Denies: throat pain or dental pain Card: Denies: chest pain Resp: Denies: dyspnea GI: Denies: abdominal pain, nausea, vomiting or diarrhea : Denies: dysuria Musc: Denies: neck pain or back pain Skin/Breast: Denies: rash Neuro: Denies: headache(s) Psych: Reports: suicidal ideation Jarred/Lymph: Denies: easy bruising All/Imm: Denies: urticaria PFSH ED PFSH: Medical History Chronic post-traumatic stress disorder Depressed Generalized anxiety disorder Major depressive disorder, recurrent episode, moderate with anxious distress Moderate intellectual disabilities Unspecified asthma, uncomplicated Surgical History No pertinent past surgical history Social History Smoking and tobacco status: never smoked Second hand smoke exposure: Yes Alcohol intake: never Adopted: No Caregiver/support person: Yes Lives independently: No Household members: family Marital status: Single service: No Current occupational status: disabled Current gender identity: Female Physical Exam Const: COMMON NORMALS: no acute distress, patient oriented x3 and healthy appearing HENMT: COMMON NORMALS: normocephalic and atraumatic HEAD & SCALP: normocephalic and atraumatic Eye: COMMON NORMALS: Equal, round and reactive pupils present and EOMs intact bilaterally PUPIL: Yes Equal, round and reactive pupils present Neck/C-Spine: COMMON NORMALS: full ROM and supple Chest: COMMONS NORMALS: normal inspection of the chest and normal palpation of entire chest wall Resp: COMMON NORMALS: normal respiratory effort, No retractions, No use of accessory muscles and clear to auscultation bilaterally AUSCULTATION: clear to auscultation bilaterally Cardio: COMMON NORMALS: regular rate, regular rhythm and No murmurs present (Cardio) RATE: regular rate RHYTHM: regular rhythm GI: COMMON NORMALS: Normal to inspection, nondistended, normoactive bowel sounds present, Soft to palpation, non-tender and no masses PALPATION: Yes Soft to palpation Extremity: COMMON NORMALS: normal to inspection and full ROM Neuro: COMMON NORMALS: patient oriented x3, moves all extremities and no focal motor deficits Psych: COMMON NORMALS: mental status grossly normal, Normal thought process present and cooperative THOUGHT PROCESS: Normal thought process present THOUGHT CONTENT: Yes Suicidality present Skin: COMMON NORMALS: no rashes or lesions noted and no wounds GENERAL SKIN EXAM: no rashes or lesions noted MDM - Psych MDM Narrative: Medical decision making narrative: Patient presents for suicidal ideations. Patient is voluntarily wanting to be admitted. She is well-appearing here and is medically cleared I spoke to the psychiatrist and will admit. Lab Data: Labs: Lab Results 01/28/21 01/28/21 01/28/21 Range/Units 04:40 04:54 04:54 WBC 10.5 H (4.0-10.0) 10^3/ uL RBC 4.14 (4.1-5.3) 10^6/u L Hgb 11.6 (11.5-15.3) g/dL Hct 36.9 L (37.0-47.0) % MCV 89.1 (81-99) fL MCH 28.0 (28.0-34.0) pg MCHC 31.4 (30.0-36.0) g/dL RDW 13.5 (12.1-15.1) % Plt Count 374 (130-400) 10^3/c mm MPV 11.0 H (7.4-10.4) fL Neut % (Auto) 71.7 % Lymph % (Auto) 19.0 % Ransom % (Auto) 6.3 % Eos % (Auto) 2.2 % Baso % (Auto) 0.6 % Neut # (Auto) 7.51 (1.8-7.7) 10^3/u L Lymph # (Auto) 2.0 (0.8-4.8) 10^3/u L Ransom # (Auto) 0.7 (0.2-0.9) 10^3/u L Eos # (Auto) 0.2 (0.0-0.8) 10^3/u L Baso # (Auto) 0.1 (0.0-0.1) 10^3/u L Nucleated RBC % (a uto) 0 % Nucleated RBCs # 0.0 /100WBC HCG, Qual Negative (Negative) Urine Opiates Scre en Negative (Negative) ng/mL Ur Barbiturates Sc reen Negative (Negative) ng/mL Ur Phencyclidine S crn Negative (Negative) ng/mL Ur Amphetamines Sc reen Negative (Negative) ng/mL U Benzodiazepines Scrn Negative (Negative) ng/mL Urine Cocaine Scre en Negative (Negative) ng/mL U Marijuana (THC) Screen Negative (Negative) ng/mL Discharge Plan Discharge Patient Disposition: Admitted As Inpatient Clinical Impression: Suicidal ideation Condition: Stable Coding Level of Care Code ED Seasonal Delivery Driver for Ed Fwd Exam Comprehensive
[2021-01-28 05:03] LABS: Basophils # 0.1 10^3/uL (0.0-0.1); Basophils % 0.6 %; Eosinophils # 0.2 10^3/uL (0.0-0.8); Eosinophils % 2.2 %; Hematocrit 36.9 % (37.0-47.0); Hemoglobin 11.6 g/dL (11.5-15.3); Mean Corpuscular HGB Conc 31.4 g/dL (30.0-36.0); Mean Corpuscular Volume 89.1 fL (81-99); Monocytes # 0.7 10^3/uL (0.2-0.9); Monocytes % 6.3 %; Neutrophils # 7.51 10^3/uL (1.8-7.7); Neutrophils % 71.7 %; Nucleated Red Blood Cells % 0 %; Platelet Count 374 10^3/cmm (130-400); Red Blood Count 4.14 10^6/uL (4.1-5.3); Red Cell Distribution Width 13.5 % (12.1-15.1); White Blood Count 10.5 10^3/uL (4.0-10.0)
[2021-01-28 05:04] LABS: HCG Qualitative Urine. Negative (Negative)
[2021-01-28 05:13] LABS: Amphetamines Screen Urine Negative (Negative); Barbiturates Screen Urine Negative (Negative); Benzodiazepines Screen Urine Negative (Negative); Cocaine Screen Urine Negative (Negative); Opiate Screen Urine Negative (Negative); PCP Screen Urine Negative (Negative); THC Screen Urine Negative (Negative)
[2021-01-28 05:21] LABS: Alanine Aminotransferase 14 U/L (0-33); Albumin Level 3.9 g/dL (3.5-5.2); Alkaline Phosphatase 94 IU/L (35-105); Anion Gap 13.7 (5-19); Aspartate Amino Transferase 12 U/L (0-32); Blood Urea Nitrogen 13 mg/dL (6-20); Calcium 8.4 mg/dL (8.5-10.5); Carbon Dioxide 24 mmol/L (22-29); Chloride 106 mmol/L (98-107); Creatinine Clr Calc Pharmacy 143.3839; Globulin 3.7 g/dL (1.3-4.6); Glomerular Filtration Rate 123.9 mL/min (90-130); Glucose 97 mg/dL (65-115); Osmolality Calculated 290 mOsm/kg (285-295); Potassium 3.7 mmol/L (3.5-5.1); Sodium 140 mmol/L (136-145); Total Bilirubin 0.2 mg/dL (0.15-1.2); Total Protein 7.6 g/dL (6.6-8.7)
[2021-01-28 05:25] LABS: Acetaminophen < 5.0 ug/mL (10-30); Alcohol Level < 10 mg/dL (0-10); Salicylate < 0.3 mg/dL (3-10)
--- NOTE | 2021-01-28 05:48 | XRR_ITS ---
PROCEDURE INFORMATION: Exam: XR Left Foot Exam date and time: 01/28/2021 5:49 AM Age: 25 years old Clinical indication: Foot; Left; Patient HX: C/O pain. No injury. ; Additional info: Foot pain TECHNIQUE: Imaging protocol: XR Left foot. Views: 3 or more views. COMPARISON: No relevant prior studies available. FINDINGS: Bones/joints: Normal. Soft tissues: Normal. XR/XR foot LT min 3V* [id number] IMPRESSION: No acute findings.
--- NOTE | 2021-01-28 06:31 | PC.NURSE ---
pt is now refusing to be transferred to [facility], crying uncrontrollably. Dr notified. After speaking with physician, decision made to place on 96h hold
[2021-01-28 06:58] VITALS: BP 132/88; PULSE 96; RESP 17; TEMP 36.8; O2SAT 98
[2021-01-28 06:59] VITALS: PULSE 108; RESP 22; O2SAT 98
[2021-01-28] MEDS: hyDROXYzine 25 mg Capsule 50 MG PO (07:20)
[2021-01-28] MEDS: ondansetron 4 MG Tablet PO (09:52)
--- NOTE | 2021-01-28 09:52 | PC.NURSE ---
Addendum entered by Marie Harman LPN 01/28/21 11:14: PRN MED EFFECTIVE NO FURTHER C/O NAUSEA Original Note: PRN ZOFRAN 4 MG GIVEN PO PER PT C/O STATED NAUSEA.
--- NOTE | 2021-01-28 14:46 | PM.SDS ---
Short Stay Summary Providers Date of Admit/Discharge: 01/28/21 Attending Provider: Stephane Gary MD Primary Care Provider: Diana Brooks Chief Complaint: HI HPI History of Present Illness Holiday Sandy Mercedes is a 25 year old female reported emergency department with anxiety symptoms but had subsequently voiced suicidal ideation although the patient had quickly retracted and denied any active intent or plan. Patient states that she had twisted her leg and fell down and became frustrated. Patient has a history of self-harm behavior to include cutting although patient states that it has been a while since she had cut herself. Review of Systems General: Reports: 10 or more systems reviewed and unremarkable except in HPI and below Home Meds/Allergies Home Medications and Allergies Home Medications Medication Instructions Recorded Confirmed Type ibuprofen 600 mg PO PRN 08/12/20 12/29/20 History Allergies Allergy/AdvReac Type Severity Reaction Status Date / Time phenazopyridine Allergy unknown Verified 01/28/21 04:59 PFSH Acute PFSH: Medical History Chronic post-traumatic stress disorder Depressed Generalized anxiety disorder Major depressive disorder, recurrent episode, moderate with anxious distress Moderate intellectual disabilities Unspecified asthma, uncomplicated Surgical History No pertinent past surgical history Social History Smoking and tobacco status: never smoked Second hand smoke exposure: Yes Alcohol intake: never Adopted: No Caregiver/support person: Yes Lives independently: No Household members: family Marital status: Single service: No Current occupational status: disabled Current gender identity: Female Female Reproductive History: Date of last menstrual period: 01/22/21 Vitals/I&O/Wt Last Vital Signs Temp 98.3 F 01/28/21 06:58 Pulse 108 H 01/28/21 06:59 Resp 22 H 01/28/21 06:59 BP 132/88 01/28/21 06:58 Pulse Ox 98 01/28/21 06:59 Weight last 48 hrs Weight 77.111 kg Physical Exam Narrative: EXAM NARRATIVE: MSE: Appears stated age, appropriately groomed, obese, wearing hospital scrubs, calm, cooperative, good eye contact Somewhat childlike in her behaviors but psychomotor activity is neither increased or decreased, no agitation Speech is somewhat childlike, normal rate, normal volume, spontaneous, not pressured, fair articulation I feel good, full range of affect, not labile Alert and oriented to person, place, time, situation Memory and concentration appear to be fair to intact per interview Intellectual functioning appears to be below average based on vocabulary, interview Thought process, linear, no flight of ideas Thought content, no delusions, no hallucinations, no suicidal or homicidal ideation Insight and judgment appear to be fair Hospital Course Hospital Course Patient denies any depressive symptoms recently or currently but does report feeling frustrated recently because of mind being around the house and falling down, denies any thoughts about self-harm. Patient does report some stress related anxiety but denies any impairment secondary to her anxiety symptoms. Patient denies any problems restarting her home medications, denies any medication side effects. Patient participate in unit milieu with no reports of any behavioral disturbances. Patient was not suicidal and was not endorsing any psychiatric symptoms at the time of discharge and did not appear to pose an imminent threat of harm to self or others. Low to moderate risk of harm to self given no current suicidal ideation although patient does have a history of self-harm behavior and the risk may be elevated if she is noncompliant with her medication, therapy or medication management follow-up. Risk mitigation included psychiatric hospitalization for observation of any suicidal ideation or behavior, restarting home medications as well as coordinating for safe discharge. Patient was able to communicate her understanding of the need to be compliant with her medication, medication management and therapy follow-up in order to further mitigate her risk of harm to self and others. SSS Data Data Completed and Pending: Completed Studies During Hospitalization Category Date Time Status XR foot LT min 3V * [id number] Stat Exams 01/28/21 05:48 Completed Diagnoses at Discharge Discharge Diagnosis (1) Suicidal ideation: Status: Acute (2) Generalized anxiety disorder: Status: Chronic Discharge Plan Discharge Patient Disposition: Home Condition: Stable Prescriptions: Continued cyproheptadine 4 mg tablet 4 mg PO BEDTIME Qty: 30 RF: 6 hydroxyzine pamoate [Vistaril] 50 mg capsule 50 mg PO BID PRN (Reason: anxiety) Qty: 60 RF: 6 Zoloft 100 mg tablet 200 mg PO QAM Qty: 60 RF: 6 trazodone 50 mg tablet 50 mg PO BEDTIME PRN (Reason: sleep) Qty: 30 RF: 6 cetirizine [Zyrtec] 10 mg tablet 10 mg PO DAILY PRN (Reason: allergy symptoms) Qty: 30 RF: 5 omeprazole 20 mg capsule,delayed release(DR/EC) 20 mg PO BID Qty: 60 RF: 2 nystatin 100,000 unit/mL suspension 5 ml PO TID 7 Days Qty: 105 RF: 0 ibuprofen 200 mg Tablet 600 mg PO PRN RF: 0 Refresh Liquigel 1 % drops, liquid gel 1 drp ophthalmic (eye) Q6H PRN (Reason: dry eye(s)) Qty: 15 RF: 0 Discharge Orders: Discharge Order (Routine); Ordered 01/28/21 Ordered By: Brayden Flores Referrals: Kat Garcia PMHNP [Staff Physician] - 02/12/21 2:00 pm (By phone) Diana Brooks PA [Primary Care Provider] - Discharge Diet: Regular Discharge Activity: Resume usual activity Patient Instructions: Opioid Safety Attestations Medical Necessity Statement*: Outpatient medication management and therapy follow-up of the least restrictive and appropriate level of care at this time. Time Spent in Patient Care*: greater than 30 min Status at Discharge: Cognitive status at discharge: cognitively intact, Behavioral status at discharge: cooperative, Functional status at discharge: independent ambulation Overall status at discharge: patient is back to baseline Quality Metrics Clinical Quality Measures: During this hospital stay, did patient experience: None Coding Level of Care Code Acute Management Trainee Program Stores for [employer] Diagnoses Suicidal ideation R45.851 Generalized anxiety disorder F41.1
[2021-01-28 15:33] VITALS: PULSE 108; RESP 22; O2SAT 98
== END 2021-01-28 20:14 | disposition home or self-care (01) ==
LOC: ER 04:45 → NP 08:28
PROVIDERS: Admitting Provider Psychiatry & Neurology Psychiatry; Emergency Provider Emergency Medicine; PCP Physician Assistant; Visit Provider Psychiatry & Neurology Psychiatry
DX: R45.851 Suicidal ideations (principal); F41.1 Generalized anxiety disorder
CPT/HCPCS: 73630; 80053; 80306; 80307; 81025; 85025; 99285; G0378; Q0162

== ENCOUNTER → 2021-02-12 08:36 | Outpatient (BNVA) | payer MEDICAID, SELFPAY | PROVIDERS: PCP Physician Assistant; Visit Provider Nurse Practitioner Psychiatric/Mental Health | DX: F33.1 Major depressive disorder, recurrent, moderate (principal); F43.12 Post-traumatic stress disorder, chronic; F41.1 Generalized anxiety disorder; F71 Moderate intellectual disabilities | CPT/HCPCS: 99214 ==

== ENCOUNTER → 2021-04-23 07:46 | Outpatient (BNVA) | payer MEDICAID, SELFPAY | PROVIDERS: PCP Physician Assistant; Visit Provider Nurse Practitioner Psychiatric/Mental Health | DX: F33.1 Major depressive disorder, recurrent, moderate (principal); F43.12 Post-traumatic stress disorder, chronic; F41.1 Generalized anxiety disorder; F71 Moderate intellectual disabilities | CPT/HCPCS: 99214 ==

== ENCOUNTER → 2021-05-28 07:46 | Outpatient (BNVA) | payer MEDICAID, SELFPAY | PROVIDERS: PCP Physician Assistant; Visit Provider Nurse Practitioner Psychiatric/Mental Health | DX: F33.1 Major depressive disorder, recurrent, moderate (principal); F43.12 Post-traumatic stress disorder, chronic; F41.1 Generalized anxiety disorder; F71 Moderate intellectual disabilities | CPT/HCPCS: 99214 ==

== ENCOUNTER → 2021-06-25 07:52 | Outpatient (BNVA) | payer MEDICAID, SELFPAY | PROVIDERS: PCP Physician Assistant; Visit Provider Nurse Practitioner Psychiatric/Mental Health | DX: F33.1 Major depressive disorder, recurrent, moderate (principal); F43.12 Post-traumatic stress disorder, chronic; F41.1 Generalized anxiety disorder; F71 Moderate intellectual disabilities | CPT/HCPCS: 99214 ==

== ENCOUNTER → 2021-07-27 10:01 | Outpatient (BNVA) | payer MEDICAID, SELFPAY | PROVIDERS: PCP Physician Assistant; Visit Provider Nurse Practitioner Psychiatric/Mental Health | DX: F33.1 Major depressive disorder, recurrent, moderate (principal); F43.12 Post-traumatic stress disorder, chronic; F41.1 Generalized anxiety disorder; F71 Moderate intellectual disabilities | CPT/HCPCS: 99214 ==

== ENCOUNTER → 2021-08-12 08:45 | Outpatient (BNVA) | payer MEDICAID, SELFPAY | PROVIDERS: PCP Physician Assistant; Visit Provider Nurse Practitioner Family | DX: J02.9 Acute pharyngitis, unspecified (principal); H66.003 Acute suppurative otitis media without spontaneous rupture of ear drum, bilateral; H57.11 Ocular pain, right eye | CPT/HCPCS: 87880 ==

== ENCOUNTER → 2021-12-07 09:53 | Outpatient (BNVA) | payer MEDICAID, SELFPAY | PROVIDERS: PCP Physician Assistant; Visit Provider Nurse Practitioner Psychiatric/Mental Health | DX: F33.1 Major depressive disorder, recurrent, moderate (principal); F43.12 Post-traumatic stress disorder, chronic; F41.1 Generalized anxiety disorder; F71 Moderate intellectual disabilities | CPT/HCPCS: 99214 ==

== ENCOUNTER → 2022-04-20 09:06 | Outpatient (BNVA) | payer MEDICAID, SELFPAY | PROVIDERS: PCP Physician Assistant; Visit Provider Nurse Practitioner Psychiatric/Mental Health | DX: F33.1 Major depressive disorder, recurrent, moderate (principal); F43.12 Post-traumatic stress disorder, chronic; F41.1 Generalized anxiety disorder; F71 Moderate intellectual disabilities; Z03.89 Encounter for observation for other suspected diseases and conditions ruled out | CPT/HCPCS: 80053 ==

== ENCOUNTER 2022-04-27 19:47 | Emergency (ER) | payer MEDICAID, SELFPAY ==
[2022-04-27 20:18] VITALS: BMI 25.7
[2022-04-27 20:24] VITALS: BP 143/88; PULSE 81; RESP 15; TEMP 37; O2SAT 97
--- NOTE | 2022-04-27 23:49 | ED_ITS ---
HPI - Dental/Oral General: Chief complaint: Headache Stated complaint: Left side Head/Face/Jaw/Neck Pain Time Seen by Provider: 04/27/22 21:42 History of Present Illness: Patient is a 26-year-old female comes to the ED with dental pain. Symptoms started 4 days ago on April 23. Pain is in the left lower jaw and now is radiating to back of jaw and up left side of face. She has a bad back left molar with extensive dental decay that she is currently set up to see a dentist for in the next 2 months. She has had pain like this before from this tooth but this is a more recent flareup. She rates the pain currently a 10 out of 10. Denies any other symptoms. Associated symptoms: Denies fever(s) or odynophagia Review of Systems Const: Denies: fever(s), chills or fatigue Eyes: Denies: change in vision or eye discomfort ENMT: Reports: dental pain; Denies: throat pain, odynophagia, nasal discharge or nasal congestion Card: Denies: chest pain, palpitations, edema, swelling of feet/ankles, dyspnea on exertion or orthopnea Resp: Denies: dyspnea, productive cough or non-productive cough GI: Denies: abdominal pain, nausea, vomiting, diarrhea, constipation or hematochezia : Denies: flank pain, dysuria or hematuria Musc: Denies: neck pain, back pain or extremity swelling Skin/Breast: Denies: rash or new lesions Neuro: Denies: headache(s), numbness in extremities or weakness in extremities PFS ED PFSH: Medical History Chronic post-traumatic stress disorder Depressed Generalized anxiety disorder Major depressive disorder, recurrent episode, moderate with anxious distress Moderate intellectual disabilities Psychiatric care Psychiatric care Ringworm of body Unspecified asthma, uncomplicated Surgical History No pertinent past surgical history Social History Smoking and tobacco status: never smoked Second hand smoke exposure: Yes Alcohol intake: never Adopted: No Caregiver/support person: Yes Lives independently: No Household members: family Marital status: Single service: No Current occupational status: disabled Current gender identity: Female Female Reproductive History: Date of last menstrual period: 01/22/21 Physical Exam Const: COMMON NORMALS: no acute distress, patient oriented x3 and alert GENERAL APPEARANCE: cooperative and comfortable HENMT: COMMON NORMALS: normocephalic, EAC's normal and TM's normal bilaterally HEAD & SCALP: normocephalic EXTERNAL AUDITORY CANAL: EAC's normal TYMPANIC MEMBRANE: TM's normal bilaterally MOUTH: Normal oral and palatal mucosa present TEETH & GINGIVA: Yes abnormal tooth and associated gingiva lower left second molar tender and other (Extensive dental decay), Yes caries and Yes poor dentition THROAT: posterior oropharynx normal and uvula midline Neck/C-Spine: COMMON NORMALS: supple GENERAL: Yes normal visual inspection Resp: COMMON NORMALS: normal respiratory effort, No retractions, No use of accessory muscles and clear to auscultation bilaterally AUSCULTATION: clear to auscultation bilaterally Cardio: COMMON NORMALS: regular rate, regular rhythm, S1 normal heart sound present, S2 normal heart sound present, No gallops present (Cardio), No clicks present (Cardio), No murmurs present (Cardio) and Peripheral pulses 2+ throughout RATE: regular rate RHYTHM: regular rhythm HEART SOUNDS: S1 normal heart sound present and S2 normal heart sound present PERIPHERAL PULSES: Peripheral pulses 2+ throughout GI: COMMON NORMALS: Normal to inspection, nondistended, normoactive bowel sounds present, Soft to palpation, non-tender and no masses PALPATION: Yes Soft to palpation : COMMON NORMALS: Yes no CVA tenderness BLADDER/KIDNEY EXAM: Yes no CVA tenderness Back/Pelvis: COMMON NORMALS: no CVA tenderness Extremity: COMMON NORMALS: normal to inspection Neuro: COMMON NORMALS: patient oriented x3 SENSORIUM/ORIENTATION: Yes alert GAIT: Yes Normal gait present Skin: GENERAL SKIN EXAM: dry skin Course Vital Signs: Vital signs: Vital Signs Temperature 98.6 F 04/27/22 20:24 Pulse Rate 81 04/27/22 20:24 Respiratory Rate 15 04/27/22 20:24 Blood Pressure 143/88 04/27/22 20:24 Pulse Oximetry 97 04/27/22 20:24 Oxygen Delivery Me thod 04/27/22 20:24 MDM - Dental/Oral Medical Decision Making Patient is a 26y/o female comes to the ED with dental pain. She has poor dentition and extensive dental decay on bottom left second molar. Patient is scheduled to see a dentist in the next 2 months. Vitals are stable. Patient was given a dose of Mangham here in the ED and clindamycin as well. She was diagnosed with dental caries and discharged home with a prescription for cli ndamycin, Celebrex and viscous lidocaine. Told to follow-up with her dentist as soon as possible for further management of dental pain. Patient understood and agreed with plan. Discharge Plan Discharge Patient Disposition: Home Clinical Impression: Pain due to dental caries Condition: Stable Prescriptions: New Lidocaine Viscous 2 % solution 1 applic mucous membrane TID PRN (Reason: pain) Qty: 100 0RF clindamycin HCl 150 mg capsule 300 mg PO QID 7 Days Qty: 56 0RF Celebrex 100 mg capsule 100 mg PO BID PRN (Reason: pain) Qty: 20 0RF No Action fluticasone propionate [Flonase Allergy Relief] 50 mcg/actuation spray,suspension 1 spray intranasal BID Qty: 16 2RF Rx Instructions: administer into each nostril diclofenac sodium 75 mg tablet,delayed release (DR/EC) 75 mg PO BID PRN (Reason: pain) Qty: 60 1RF triamcinolone acetonide 0.1 % cream 1 applic topical BID Qty: 80 0RF loratadine [Claritin] 10 mg tablet 10 mg PO DAILY Qty: 30 0RF montelukast [Singulair] 10 mg tablet 10 mg PO DAILY Qty: 30 0RF sertraline [Zoloft] 50 mg tablet 50 mg PO .morning Qty: 30 3RF Rx Instructions: Take one tablet every morning cyproheptadine 4 mg tablet 4 mg PO BEDTIME Qty: 30 3RF Rx Instructions: Take one tablet at bedtime hydroxyzine pamoate [Vistaril] 50 mg capsule 50 mg PO BID PRN (Reason: anxiety) Qty: 60 3RF Rx Instructions: Take one capsule twice per day as needed for anxiety trazodone 100 mg tablet 100 mg PO .bedtime PRN (Reason: sleep) Qty: 30 3RF Rx Instructions: Take one tablet at bedtime as needed for sleep Discharge Orders: Discharge ED (Routine); Ordered 04/27/22 Ordered By: Bert Nieves Referrals: Diana Brooks PA [Primary Care Provider] - Discharge Diet: Regular Discharge Activity: Increase activity as tolerated Patient Instructions: Dental Caries (Cavities), Toothache (ED) Activity Restrictions/Additional Instructions: Follow-up with dentist as soon as possible for further evaluation and management of dental pain. Take medications as prescribed. Return to the ER or your medical provider if condition worsens. Please read and understand discharge instructions. Thank you for choosing [facility] for your healthcare needs today. Please realize this is an emergency room and that we are providing you with a medical screening exam and this may not be complete and all inclusive of all the testing and or work up that you may need to determine your ailment or severity of your illness. It is very important that you follow up as instructed or that you return to the Emergency Department should you have concerns or if your condition changes or worsens in any way. Coding Level of Care Code ED Supervising Chef for Ed Fwd Exam Comprehensive
[2022-04-28] MEDS: HYDROcodone-acetaminophen 7.5-325 mg Tablet 1 TAB PO (00:19)
[2022-04-28] MEDS: clindamycin 150 mg Capsule 300 MG PO (00:19)
[2022-04-28 00:20] VITALS: PULSE 68; RESP 16; O2SAT 98
== END 2022-04-28 00:22 | disposition home or self-care (01) ==
PROVIDERS: Emergency Provider Physician Assistant; PCP Physician Assistant
DX: K02.9 Dental caries, unspecified (principal); Z77.22 Contact with and (suspected) exposure to environmental tobacco smoke (acute) (chronic)
CPT/HCPCS: 99283

== ENCOUNTER 2022-05-06 21:56 | Inpatient (IN) | payer MEDICAID, SELFPAY ==
[2022-05-06 22:01] VITALS: BP 155/109; PULSE 98; RESP 16; TEMP 37; O2SAT 96; BMI 28.3
--- NOTE | 2022-05-06 22:27 | ED_ITS ---
Documented by User: Ramez Rodriguez MD 05/06/22 22:55 HPI - Anxiety General: Chief Complaint: Anxiety Stated Complaint: Anxiety Time Seen by Provider: 05/06/22 21:59 History of Present Illness: Patient comes in c/o anxiety and thoughts of suicide over the last 3-4 days. States that she takes medication for depression. Denies doing anything to hurt her self, however states that she is suicidal. Denies alcohol or drugs. Associated symptoms: Deny chest pain, fever(s), headache(s), nausea, palpitations or vomiting Review of Systems Const: Denies: fever(s) or body aches Eyes: Denies: change in vision or blurry vision ENMT: Denies: throat pain or odynophagia Card: Denies: chest pain or palpitations Resp: Denies: dyspnea or productive cough GI: Denies: abdominal pain, nausea or vomiting : Denies: flank pain or dysuria Musc: Denies: neck pain or back pain Skin/Breast: Denies: rash or pruritus Neuro: Denies: headache(s) or numbness in extremities Psych: Reports: anxiety and suicidal ideation; Denies: change in appetite Endo: Denies: polyuria or excessive sweating PFSH ED PFSH: Medical History Chronic post-traumatic stress disorder Depressed Generalized anxiety disorder Major depressive disorder, recurrent episode, moderate with anxious distress Moderate intellectual disabilities Psychiatric care Psychiatric care Ringworm of body Unspecified asthma, uncomplicated Surgical History No pertinent past surgical history Social History Smoking and tobacco status: never smoked Second hand smoke exposure: Yes Alcohol intake: never Adopted: No Caregiver/support person: Yes Lives independently: No Household members: family Marital status: Single service: No Current occupational status: disabled Current gender identity: Female Female Reproductive History: Date of last menstrual period: 01/22/21 Physical Exam Const: COMMON NORMALS: no acute distress, patient oriented x3, healthy appearing and alert HENMT: COMMON NORMALS: normocephalic and atraumatic HEAD & SCALP: normocephalic and atraumatic Eye: COMMON NORMALS: Equal, round and reactive pupils present and EOMs intact bilaterally PUPIL: Yes Equal, round and reactive pupils present Neck/C-Spine: COMMON NORMALS: full ROM and supple Resp: COMMON NORMALS: normal respiratory effort, No retractions and No use of accessory muscles Cardio: COMMON NORMALS: regular rate and regular rhythm RATE: regular rate RHYTHM: regular rhythm GI: COMMON NORMALS: Normal to inspection, nondistended, normoactive bowel sounds present, Soft to palpation and non-tender PALPATION: Yes Soft to palpation Back/Pelvis: COMMON NORMALS: thoracic and lumbar spine normal to inspection and no thoracic nor lumbar tenderness Extremity: COMMON NORMALS: normal to inspection and full ROM Neuro: COMMON NORMALS: patient oriented x3 SENSORIUM/ORIENTATION: Yes alert Psych: COMMON NORMALS: mental status grossly normal and cooperative Skin: COMMON NORMALS: no rashes or lesions noted and no wounds GENERAL SKIN EXAM: no rashes or lesions noted Course Vital Signs: Vital signs: Vital Signs Temperature 98.1 F 05/10/22 11:18 Pulse Rate 109 H 05/10/22 11:18 Respiratory Rate 17 05/10/22 11:18 Blood Pressure 130/91 05/10/22 11:18 Pulse Oximetry 98 05/10/22 11:18 Oxygen Delivery Me thod 05/10/22 06:00 MDM - Anxiety Medical Decision Making Patient comes in c/o anxiety and thoughts of suicide over the last 3-4 days. States that she takes medication for depression. Denies doing anything to hurt her self, however states that she is suicidal. Denies alcohol or drugs. Will check labs, consult psych, and reassess. We are awaiting test results prior to consulting psychiatry. We will sign out to the oncoming physician to follow-up on the test results. Lab Data : 05/07/22 00:00 05/06/22 23:10 Laboratory Results WBC 14.1 10^3/uL (4.0-10.0) H 05/07/22 00:00 Corrected WBC Cancelled 05/06/22 23:10 RBC 3.49 10^6/uL (4.1-5.3) L 05/07/22 00:00 Hgb 10.0 g/dL (11.5-15.3) L 05/07/22 00:00 Hct 30.8 % (37.0-47.0) L 05/07/22 00:00 MCV 88.3 fl (81-99) 05/07/22 00:00 MCH 28.7 pg (28.0-34.0) 05/07/22 00:00 MCHC 32.5 g/dL (30.0-36.0) 05/07/22 00:00 RDW 13.7 % (12.1-15.1) 05/07/22 00:00 Plt Count 306 10^3/cmm (130-400) 05/07/22 00:00 MPV 12.5 fL (7.4-10.4) H 05/07/22 00:00 Gran % Cancelled 05/06/22 23:10 Neut % (Auto) 88.4 % 05/07/22 00:00 Lymph % (Auto) 6.7 % 05/07/22 00:00 Hardin % (Auto) 3.9 % 05/07/22 00:00 Eos % (Auto) 0.2 % 05/07/22 00:00 Baso % (Auto) 0.4 % 05/07/22 00:00 Neut # (Auto) 12.48 10^3/uL (1.8-7.7) H 05/07/22 00:00 Lymph # (Auto) 1.0 10^3/uL (0.8-4.8) 05/07/22 00:00 Hardin # (Auto) 0.6 10^3/uL (0.2-0.9) 05/07/22 00:00 Eos # (Auto) 0.0 10^3/uL (0.0-0.8) 05/07/22 00:00 Baso # (Auto) 0.1 10^3/uL (0.0-0.1) 05/07/22 00:00 Absolute Gran (auto) Cancelled 05/06/22 23:10 Nucleated RBC % (auto) 0 % 05/07/22 00:00 Nucleated RBCs # 0.0 /100WBC 05/07/22 00:00 Sodium 142 mmol/L (136-145) 05/06/22 23:10 Potassium 4.0 mmol/L (3.5-5.1) 05/06/22 23:10 Chloride 104 mmol/L (98-107) 05/06/22 23:10 Carbon Dioxide 21 mmol/L (22-29) L 05/06/22 23:10 Anion Gap 21.0 (5-19) H 05/06/22 23:10 BUN 14 mg/dL (6-20) 05/06/22 23:10 Creatinine 0.7 mg/dL (0.5-0.9) 05/06/22 23:10 GFR Calculation 102.8 mL/min (90-130) 05/06/22 23:10 Glucose 81 mg/dL (65-115) 05/06/22 23:10 Calculated Osmolality 294 mOsm/kg (285-295) 05/06/22 23:10 Calcium 9.5 mg/dL (8.5-10.5) 05/06/22 23:10 Total Bilirubin 0.2 mg/dL (0.15-1.2) 05/06/22 23:10 AST 18 U/L (0-32) 05/06/22 23:10 ALT 18 U/L (0-33) 05/06/22 23:10 Alkaline Phosphatase 79 IU/L (35-105) 05/06/22 23:10 Total Protein 8.6 g/dL (6.6-8.7) 05/06/22 23:10 Albumin 4.5 g/dL (3.5-5.2) 05/06/22 23:10 Globulin 4.1 g/dL (1.3-4.6) 05/06/22 23:10 HCG, Qual Negative (Negative) 05/06/22 23:28 Urine Color Yellow (Yellow) 05/06/22 23:28 Urine Appearance Sl hazy (CLEAR) 05/06/22 23:28 Urine pH 5 (5-7) 05/06/22 23:28 Ur Specific Waterproof 1.020 (1.005-1.030) 05/06/22 23:28 Urine Protein 1+ (Negative) H 05/06/22 23:28 Urine Glucose (UA) Norm (Normal) 05/06/22 23:28 Urine Ketones 3+ (Negative) H 05/06/22 23:28 Urine Blood 3+ (Negative) H 05/06/22 23:28 Urine Nitrate Negative (Negative) 05/06/22 23:28 Urine Bilirubin Neg (Negative) 05/06/22 23: Urine Urobilinogen Neg mg/dL (Negative) 05/06/22 23:28 Ur Leukocyte Esterase 2+ (Negative) H 05/06/22 23:28 Urine RBC 50-80 /hpf (0-2) H 05/06/22 23:28 Urine WBC 25-40 /hpf (0-5) H 05/06/22 23:28 Ur Squamous Epith Cells 15-25 /hpf (0-5) H 05/06/22 23:28 Amorphous Sediment Not Reportable 05/06/22 23:28 Urine Bacteria Trace /hpf (NONE) 05/06/22 23:28 Urine Mucus 1+ /hpf 05/06/22 23:28 Salicylates < 0.3 mg/dL (3-10) L 05/06/22 23:10 Urine Opiates Screen Negative ng/mL (Negative) 05/06/22 23:28 Acetaminophen < 5.0 ug/mL (10-30) L 05/06/22 23:10 Ur Barbiturates Screen Negative ng/mL (Negative) 05/06/22 23:28 Ur Phencyclidine Scrn Negative ng/mL (Negative) 05/06/22 23:28 Ur Amphetamines Screen Negative ng/mL (Negative) 05/06/22 23:28 U Benzodiazepines Scrn Negative ng/mL (Negative) 05/06/22 23:28 Urine Cocaine Screen Negative ng/mL (Negative) 05/06/22 23:28 U Marijuana (THC) Screen Negative ng/mL (Negative) 05/06/22 23:28 Ethyl Alcohol < 10 mg/dL (0-10) 05/06/22 23:10 Discharge Plan Discharge Patient Disposition: Admitted As Inpatient Admit Provider: Stephane Gary Clinical Impression: Suicidal ideation Condition: Stable Discharge Diet: Regular Discharge Activity: Resume usual activity Sign Out Sign Out Data: Patient Sign Out occurred on 05/06/22 at 23:00. Patient's care was discussed, and care was transferred from to Laurent Henderson MD. Coding Level of Care Code ED Model And Pattern Supervisor for Chg Fwd Exam Comprehensive Documented by User: Laurent Henderson MD 05/21/22 16:02 HPI - Anxiety General: Chief Complaint: Anxiety Stated Complaint: Anxiety Time Seen by Provider: 05/06/22 21:59 [facility] ED PFSH: Medical History Chronic post-traumatic stress disorder Depressed Generalized anxiety disorder Major depressive disorder, recurrent episode, moderate with anxious distress Moderate intellectual disabilities Psychiatric care Psychiatric care Ringworm of body Unspecified asthma, uncomplicated Surgical History No pertinent past surgical history Social History Smoking and tobacco status: never smoked Second hand smoke exposure: Yes Alcohol intake: never Adopted: No Caregiver/support person: Yes Lives independently: No Household members: family Marital status: Single service: No Current occupational status: disabled Current gender identity: Female Course Vital Signs: Vital signs: Vital Signs Temperature 98.1 F 05/10/22 11:18 Pulse Rate 109 H 05/10/22 11:18 Respiratory Rate 17 05/10/22 11:18 Blood Pressure 130/91 05/10/22 11:18 Pulse Oximetry 98 05/10/22 11:18 Oxygen Delivery Me thod 05/10/22 06:00 MDM - Anxiety Medical Decision Making Patient comes in c/o anxiety and thoughts of suicide over the last 3-4 days. States that she takes medication for depression. Denies doing anything to hurt her self, however states that she is suicidal. Denies alcohol or drugs. Will check labs, consult psych, and reassess. We are awaiting test results prior to consulting psychiatry. We will sign out to the oncoming physician to follow-up on the test results. Patient care handoff received from Dr. Rodriguez pending completion of ED evaluation. Laboratory studies reviewed. Case discussed with psychiatry service and patient requires admission for suicidal ideation with plan. Admitted in satisfactory condition and satisfactory for inpatient management of psychiatric concerns. Laurent Henderson MD Emergency Medicine Lab Data : 05/07/22 00:00 05/06/22 23:10 Laboratory Results WBC 14.1 10^3/uL (4.0-10.0) H 05/07/22 00:00 Corrected WBC Cancelled 05/06/22 23:10 RBC 3.49 10^6/uL (4.1-5.3) L 05/07/22 00:00 Hgb 10.0 g/dL (11.5-15.3) L 05/07/22 00:00 Hct 30.8 % (37.0-47.0) L 05/07/22 00:00 MCV 88.3 fl (81-99) 05/07/22 00:00 MCH 28.7 pg (28.0-34.0) 05/07/22 00:00 MCHC 32.5 g/dL (30.0-36.0) 05/07/22 00:00 RDW 13.7 % (12.1-15.1) 05/07/22 00:00 Plt Count 306 10^3/cmm (130-400) 05/07/22 00:00 MPV 12.5 fL (7.4-10.4) H 05/07/22 00:00 Gran % Cancelled 05/06/22 23:10 Neut % (Auto) 88.4 % 05/07/22 00:00 Lymph % (Auto) 6.7 % 05/07/22 00:00 Hardin % (Auto) 3.9 % 05/07/22 00:00 Eos % (Auto) 0.2 % 05/07/22 00:00 Baso % (Auto) 0.4 % 05/07/22 00:00 Neut # (Auto) 12.48 10^3/uL (1.8-7.7) H 05/07/22 00:00 Lymph # (Auto) 1.0 10^3/uL (0.8-4.8) 05/07/22 00:00 Hardin # (Auto) 0.6 10^3/uL (0.2-0.9) 05/07/22 00:00 Eos # (Auto) 0.0 10^3/uL (0.0-0.8) 05/07/22 00:00 Baso # (Auto) 0.1 10^3/uL (0.0-0.1) 05/07/22 00:00 Absolute Gran (auto) Cancelled 05/06/22 23:10 Nucleated RBC % (auto) 0 % 05/07/22 00:00 Nucleated RBCs # 0.0 /100WBC 05/07/22 00:00 Sodium 142 mmol/L (136-145) 05/06/22 23:10 Potassium 4.0 mmol/L (3.5-5.1) 05/06/22 23:10 Chloride 104 mmol/L (98-107) 05/06/22 23:10 Carbon Dioxide 21 mmol/L (22-29) L 05/06/22 23:10 Anion Gap 21.0 (5-19) H 05/06/22 23:10 BUN 14 mg/dL (6-20) 05/06/22 23:10 Creatinine 0.7 mg/dL (0.5-0.9) 05/06/22 23:10 GFR Calculation 102.8 mL/min (90-130) 05/06/22 23:10 Glucose 81 mg/dL (65-115) 05/06/22 23:10 Calculated Osmolality 294 mOsm/kg (285-295) 05/06/22 23:10 Calcium 9.5 mg/dL (8.5-10.5) 05/06/22 23:10 Total Bilirubin 0.2 mg/dL (0.15-1.2) 05/06/22 23:10 AST 18 U/L (0-32) 05/06/22 23:10 ALT 18 U/L (0-33) 05/06/22 23:10 Alkaline Phosphatase 79 IU/L (35-105) 05/06/22 23:10 Total Protein 8.6 g/dL (6.6-8.7) 05/06/22 23:10 Albumin 4.5 g/dL (3.5-5.2) 05/06/22 23:10 Globulin 4.1 g/dL (1.3-4.6) 05/06/22 23:10 HCG, Qual Negative (Negative) 05/06/22 23:28 Urine Color Yellow (Yellow) 05/06/22 23:28 Urine Appearance Sl hazy (CLEAR) 05/06/22 23:28 Urine pH 5 (5-7) 05/06/22 23:28 Ur Specific Waterproof 1.020 (1.005-1.030) 05/06/22 23:28 Urine Protein 1+ (Negative) H 05/06/22 23:28 Urine Glucose (UA) Norm (Normal) 05/06/22 23:28 Urine Ketones 3+ (Negative) H 05/06/22 23:28 Urine Blood 3+ (Negative) H 05/06/22 23:28 Urine Nitrate Negative (Negative) 05/06/22 23:28 Urine Bilirubin Neg (Negative) 05/06/22 23:28 Urine Urobilinogen Neg mg/dL (Negative) 05/06/22 23:28 Ur Leukocyte Esterase 2+ (Negative) H 05/06/22 23:28 Urine RBC 50-80 /hpf (0-2) H 05/06/22 23:28 Urine WBC 25-40 /hpf (0-5) H 05/06/22 23:28 Ur Squamous Epith Cells 15-25 /hpf (0-5) H 05/06/22 23:28 Amorphous Sediment Not Reportable 05/06/22 23:28 Urine Bacteria Trace /hpf (NONE) 05/06/22 23:28 Urine Mucus 1+ /hpf 05/06/22 23:28 Salicylates < 0.3 mg/dL (3-10) L 05/06/22 23:10 Urine Opiates Screen Negative ng/mL (Negative) 05/06/22 23:28 Acetaminophen < 5.0 ug/mL (10-30) L 05/06/22 23:10 Ur Barbiturates Screen Negative ng/mL (Negative) 05/06/22 23:28 Ur Phencyclidine Scrn Negative ng/mL (Negative) 05/06/22 23:28 Ur Amphetamines Screen Negative ng/mL (Negative) 05/06/22 23:28 U Benzodiazepines Scrn Negative ng/mL (Negative) 05/06/22 23:28 Urine Cocaine Screen Negative ng/mL (Negative) 05/06/22 23:28 U Marijuana (THC) Screen Negative ng/mL (Negative) 05/06/22 23:28 Ethyl Alcohol < 10 mg/dL (0-10) 05/06/22 23:10 Discharge Plan Discharge Patient Disposition: Admitted As Inpatient Admit Provider: Stephane Gary Clinical Impression: Suicidal ideation Condition: Stable Discharge Diet: Regular Discharge Activity: Resume usual activity Sign Out Sign Out Data: Patient Sign Out occurred on 05/06/22 at 23:00. Patient's care was discussed, and care was transferred from to Laurent Henderson MD. Coding Level of Care Code ED Model And Pattern Supervisor for Chg Fwd Exam Comprehensive
[2022-05-06 23:40] LABS: HCG Qualitative Urine. Negative (Negative)
[2022-05-06 23:47] LABS: Add Urine Microscopic? YES; Bilirubin Urine Neg (Negative); Blood Urine 3+ (Negative); Glucose Urine UA Norm (Normal); Ketones Urine 3+ (Negative); Leukocyte Esterase Urine 2+ (Negative); Nitrate Urine Negative (Negative); Protein Urine 1+ (Negative); Urine Appearance SL Hazy (CLEAR); Urine Color Yellow (Yellow); Urobilinogen Urine Neg (Negative); pH Urine 5 (5-7)
[2022-05-06 23:48] LABS: Add Urine Culture? No; Bacteria Urine TRACE /hpf; Mucus Urine 1+ /hpf; RBC Urine 50-80 /hpf (0-2); Squamous Epithelial Cell Urine 15-25 /hpf (0-5); WBC Urine 25-40 /hpf (0-5)
[2022-05-06 23:51] LABS: Amphetamines Screen Urine Negative (Negative); Barbiturates Screen Urine Negative (Negative); Benzodiazepines Screen Urine Negative (Negative); Cocaine Screen Urine Negative (Negative); Opiate Screen Urine Negative (Negative); PCP Screen Urine Negative (Negative); THC Screen Urine Negative (Negative)
[2022-05-06 23:57] LABS: Alanine Aminotransferase 18 U/L (0-33); Albumin Level 4.5 g/dL (3.5-5.2); Alkaline Phosphatase 79 IU/L (35-105); Aspartate Amino Transferase 18 U/L (0-32); Blood Urea Nitrogen 14 mg/dL (6-20); Calcium 9.5 mg/dL (8.5-10.5); Carbon Dioxide 21 mmol/L (22-29); Chloride 104 mmol/L (98-107); Globulin 4.1 g/dL (1.3-4.6); Glomerular Filtration Rate 102.8 mL/min (90-130); Glucose 81 mg/dL (65-115); Osmolality Calculated 294 mOsm/kg (285-295); Sodium 142 mmol/L (136-145); Total Bilirubin 0.2 mg/dL (0.15-1.2); Total Protein 8.6 g/dL (6.6-8.7)
[2022-05-06 23:59] LABS: Acetaminophen < 5.0 ug/mL (10-30); Alcohol Level < 10 mg/dL (0-10); Salicylate < 0.3 mg/dL (3-10)
[2022-05-07 00:24] LABS: Basophils # 0.1 10^3/uL (0.0-0.1); Basophils % 0.4 %; Eosinophils % 0.2 %; Hematocrit 30.8 % (37.0-47.0); Lymphocytes % 6.7 %; Mean Corpuscular HGB Conc 32.5 g/dL (30.0-36.0); Mean Corpuscular Hemoglobin 28.7 pg (28.0-34.0); Mean Corpuscular Volume 88.3 fl (81-99); Mean Platelet Volume 12.5 fL (7.4-10.4); Monocytes # 0.6 10^3/uL (0.2-0.9); Monocytes % 3.9 %; Neutrophils # 12.48 10^3/uL (1.8-7.7); Neutrophils % 88.4 %; Nucleated Red Blood Cells % 0 %; Platelet Count 306 10^3/cmm (130-400); Red Blood Count 3.49 10^6/uL (4.1-5.3); Red Cell Distribution Width 13.7 % (12.1-15.1); White Blood Count 14.1 10^3/uL (4.0-10.0)
[2022-05-07 00:39] LABS: Slide Review Slide Review Perform
[2022-05-07 01:34] VITALS: BP 137/85; PULSE 102; RESP 18; TEMP 36.7; O2SAT 99
[2022-05-07] MEDS: OLANZapine 5 mg ODT PO ×2 (02:12→12:13)
[2022-05-07] MEDS: ibuprofen 600 mg Tablet PO ×2 (02:20→11:17)
[2022-05-07 06:00] VITALS: BP 125/89; PULSE 84; RESP 16; TEMP 36.5; O2SAT 98
[2022-05-07] MEDS: hyDROXYzine 25 mg Capsule 50 MG PO (11:17)
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
[2022-05-07 14:00] VITALS: BP 125/89; PULSE 84; RESP 16; TEMP 36.5; O2SAT 98
[2022-05-07 15:07] VITALS: BP 137/89; PULSE 88; RESP 18; TEMP 36.7; O2SAT 98
[2022-05-07] MEDS: sertraline 50 mg Tablet PO (15:31)
[2022-05-07] MEDS: quetiapine 25 mg Tablet PO (17:43)
[2022-05-07 20:21] VITALS: BP 140/4; PULSE 86; RESP 16; TEMP 36.9
[2022-05-07] MEDS: haloperidol 5 mg Tablet PO (20:24)
[2022-05-07 20:37] VITALS: BP 140/84; PULSE 86; RESP 16; TEMP 36.9
--- NOTE | 2022-05-07 23:26 | PC.NURSE ---
PRN MEDICATION PT REQUESTED ANXIETY MEDICATION DUE TO HAVING ANXIETY AND AGITATION. PT APPEARS CALM AND COOPERATIVE. 5 MG HALDOL WAS GIVEN ORDERED.
[2022-05-08] MEDS: ibuprofen 600 mg Tablet PO ×2 (05:53→22:21)
[2022-05-08 05:54] VITALS: BP 123/83; PULSE 86; RESP 16; TEMP 36.6; O2SAT 99
[2022-05-08 06:00] VITALS: BMI 28.3
[2022-05-08] MEDS: lidocaine 2% viscous 1.667 ML, diphenhydrAMINE oral liq 4.165 MG, aluminum-mag hydrox-s... MUCOUS MEM ×2 (07:45→15:44)
[2022-05-08] MEDS: quetiapine 25 mg Tablet PO ×2 (08:28→17:49)
[2022-05-08] MEDS: sertraline 50 mg Tablet PO (08:28)
[2022-05-08] MEDS: OLANZapine 5 mg ODT PO (10:35)
--- NOTE | 2022-05-08 10:39 | PC.NURSE ---
PT C/O INCREASED ANXIETY AND REQUESTED PRN ZYPREXA, PRN GIVEN, PT IS PARTICIPATING IN GROUP WITH [facility]ERS OUTSIDE ON PATIO WITH NPU STAFF WITHOUT SIGNS OF DISCOMFORT OR ANXIETY
[2022-05-08 14:00] VITALS: BP 130/82; PULSE 83; RESP 16; TEMP 36.6; O2SAT 99
[2022-05-08 20:13] VITALS: BP 131/84; PULSE 102; RESP 16; TEMP 36.8; O2SAT 97
[2022-05-08] MEDS: trazodone 50 mg Tablet PO ×2 (20:35→23:08)
--- NOTE | 2022-05-08 21:08 | P.NPUPN_ITS ---
Subjective NPU Subjective: Patient presents today reporting that she is doing okay on the medications. We discussed the fact that the Seroquel has just been started by her outpatient doctor and is unclear whether she actually started it before she came to the hospital. She denies any side effects or concerns from the medication. She is a little less isolative today being seen out on the unit. Mental Status Exam MSE Comments: This is an overweight versus obese white female in hospital scrubs with limited grooming and eye contact. No abnormal movements except for psychomotor retardation. Cooperative with exam in mild to moderate distress. Speech was normal rate and slightly decreased volume. Mood described as anxious, affect is congruent. Thought process, organized. Thought content: patient denies any suicidal or homicidal ideation, no delusion reported or noted and denies any auditory or visual hallucinations. Attention and concentration are intact and memory appeared reliable but none were formally tested. She is alert and oriented three times. Insight and judgment are limited. Impulse control is limited. Intellectual ability appears limited versus impaired. Vitals/I&O/Wt Last Vital Signs Temp 98.2 F 05/08/22 20:13 Pulse 102 H 05/08/22 20:13 Resp 16 05/08/22 20:13 BP 131/84 05/08/22 20:13 Pulse Ox 97 05/08/22 20:13 O2 Del Method 05/08/22 14:00 Weight last 48 hrs Weight 72.575 kg Weight 72.575 kg Data NPU : 05/07/22 00:00 05/06/22 23:10 A&P Assessment and plan (1) Suicidal ideation: Status: Acute (2) Pain, dental: Status: Acute (3) Generalized anxiety disorder: Status: Chronic (4) Chronic post-traumatic stress disorder: Status: Chronic (5) Major depressive disorder, recurrent episode, moderate with anxious distress: Status: Chronic (6) Intellectual disability: Status: Acute Plan This is 26 year old white female with a history of trauma, depression, anxiety and post traumatic stress disorder who presents with worsening anxiety endorsing some success on her current medications and an openness to changes in those medications. 1. Continue current medications. Initiated Seroquel 25 mg p.o. twice daily and continued Zoloft 50 mg p.o. every morning. 2. Encourage individual, group and milieu therapy 3. Continue q-15 minute check for safety 4. Recommend sober living treatment at the highest level of care to which the patient is willing to commit. Involuntary Hold Information 96 Hour Hold: 96 Hour Involuntary Admission: No 96 Hour Hold Ending Date: 02/03/21 96 Hour Hold Ending Time: 06:40 Attestations NPU Medical Necessity Statement*: Inpatient hospitalization is medically necessary and the clinically appropriate intervention at this time. We will monitor medication to make changes as indicated. Likely length of stay 2-4 days. 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
[2022-05-08] MEDS: hyDROXYzine 25 mg Capsule 50 MG PO (23:56)
[2022-05-09] MEDS: OLANZapine 5 mg ODT PO ×2 (02:54→20:10)
[2022-05-09 06:00] VITALS: BP 126/85; PULSE 91; RESP 16; TEMP 36.4; O2SAT 98
[2022-05-09] MEDS: hyDROXYzine 25 mg Capsule 50 MG PO (06:21)
[2022-05-09] MEDS: lidocaine 2% viscous 1.667 ML, diphenhydrAMINE oral liq 4.165 MG, aluminum-mag hydrox-s... MUCOUS MEM (06:22)
--- NOTE | 2022-05-09 07:02 | W.PM.NPUPNS ---
Subjective NPU Subjective: Patient presents today alert and interactive and engaging for the first time revealing a more robust picture of her intellectual ability. As staff reports, she was very childlike and reported that she was here because she had been having panic attacks but she denied having them now. We discussed the risk benefits and alternatives of initiating propranolol as a as needed medication and it is unclear if she understood that she agreed to proceed as is documented in this note. We discussed talking to her mother with whom she lives to try to make sure she does not have some kind of guardianship relationship and to her sister and these decisions. She expressed a desire to be discharged as soon as possible and we discussed possibility of discharge in the next 48 hours. Mental Status Exam MSE Comments: This is an overweight versus obese white female in hospital scrubs with limited grooming and eye contact. No abnormal movements except for psychomotor retardation. Cooperative with exam in mild to moderate distress. Speech was decreased rate and volume very childlike. Mood described as a little better, affect is anxious and childlike. Thought process, organized. Thought content: patient denies any suicidal or homicidal ideation, no delusion reported or noted and denies any auditory or visual hallucinations. Attention and concentration are intact and memory appeared reliable but none were formally tested. She is alert and oriented three times. Insight and judgment are limited. Impulse control is limited. Intellectual ability appears impaired. Vitals/I&O/Wt Last Vital Signs Temp 97.6 F 05/09/22 06:00 Pulse 91 05/09/22 06:00 Resp 16 05/09/22 06:00 BP 126/85 05/09/22 06:00 Pulse Ox 98 05/09/22 06:00 O2 Del Method 05/09/22 06:00 Weight last 48 hrs Weight 72.575 kg Data NPU : 05/07/22 00:00 05/06/22 23:10 A&P Assessment and plan (1) Suicidal ideation: Status: Acute (2) Pain, dental: Status: Acute (3) Generalized anxiety disorder: Status: Chronic (4) Chronic post-traumatic stress disorder: Status: Chronic (5) Major depressive disorder, recurrent episode, moderate with anxious distress: Status: Chronic (6) Intellectual disability: Status: Acute Plan This is 26 year old white female with a history of trauma, depression, anxiety and post traumatic stress disorder who presents with worsening anxiety endorsing some success on her current medications and an openness to changes in those medications. 1. Continue current medications. Initiated Seroquel 25 mg p.o. twice daily and continued Zoloft 50 mg p.o. every morning. We will initiate propranolol 20 mg p.o. 3 times daily as needed. 2. Encourage individual, group and milieu therapy 3. Continue q-15 minute check for safety 4. Recommend sober living treatment at the highest level of care to which the patient is willing to commit. 5. reach out to mother determine whether she has any medical decision-making guardianship or otherwise. Involuntary Hold Information 96 Hour Hold: 96 Hour Involuntary Admission: No 96 Hour Hold Ending Date: 02/03/21 96 Hour Hold Ending Time: 06:40 Attestations NPU Medical Necessity Statement*: Inpatient hospitalization is medically necessary and the clinically appropriate intervention at this time. We will monitor medication to make changes as indicated. Likely length of stay 1-3 days. 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
[2022-05-09] MEDS: quetiapine 25 mg Tablet PO ×2 (08:26→17:10)
[2022-05-09] MEDS: sertraline 50 mg Tablet PO (08:27)
[2022-05-09] MEDS: BuSPIRONE 10 mg Tablet PO (08:28)
[2022-05-09] MEDS: loratadine 10 mg Tablet PO (08:28)
[2022-05-09 14:00] VITALS: BP 132/84; PULSE 105; RESP 18; TEMP 36.4; O2SAT 96
[2022-05-09 19:10] VITALS: BP 120/76; PULSE 74; RESP 16; TEMP 36.9
[2022-05-10 06:00] VITALS: BP 130/91; PULSE 109; RESP 17; TEMP 36.7; O2SAT 98
[2022-05-10] MEDS: loratadine 10 mg Tablet PO (08:48)
[2022-05-10] MEDS: sertraline 50 mg Tablet PO (08:48)
[2022-05-10] MEDS: quetiapine 25 mg Tablet PO (08:48)
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
[2022-05-10 11:18] VITALS: BP 130/91; PULSE 109; RESP 17; TEMP 36.7; O2SAT 98
== END 2022-05-10 11:44 | disposition home or self-care (01) | DRG 885 ==
LOC: ER 05-07 00:34 → NP 05-07 00:49
PROVIDERS: Emergency Medicine; Admitting Provider Psychiatry & Neurology Psychiatry; Emergency Provider Emergency Medicine; PCP Physician Assistant; Visit Provider Psychiatry & Neurology Psychiatry
DX: F33.1 Major depressive disorder, recurrent, moderate (principal); R45.851 Suicidal ideations; F41.1 Generalized anxiety disorder; F43.12 Post-traumatic stress disorder, chronic; F71 Moderate intellectual disabilities; K08.89 Other specified disorders of teeth and supporting structures
CPT/HCPCS: 36415; 80053; 80306; 80307; 81001; 81025; 85025; 97150; 97165; 99285

== ENCOUNTER 2022-05-24 18:20 | Inpatient (IN) | payer MEDICAID, SELFPAY ==
[2022-05-24 18:30] VITALS: BP 114/77; PULSE 85; RESP 18; TEMP 36.8; O2SAT 97; BMI 28.7
--- NOTE | 2022-05-24 18:59 | ED_ITS ---
HPI - General Adult General: Chief complaint: Psychiatric Symptoms Stated complaint: SI Time Seen by Provider: 05/24/22 18:55 History of Present Illness: HPI: [26]yo patient w/ hx of depression BIBA for suicidal ideation with plan. Patient was planning to hang herself earlier today but decided against the last minute and came to the emergency room. On arrival, the patient is AAOx3 and cooperative with my evaluation. No focal complaints of chest pain, shortness of breath, palpitations, N/V, focal GI/ complaints. Currently denies HI. No complaints of hallucinations. Onset: last few days Duration: ongoing Location: home Severity: severe Review of Systems Const: Denies: fever(s) or chills Eyes: Denies: change in vision ENMT: Denies: mouth pain Resp: Denies: non-productive cough GI: Denies: abdominal pain or diarrhea : Denies: dysuria Musc: Denies: extremity pain Skin/Breast: Denies: new lesions Neuro: Denies: weakness in extremities Psych: Reports: depression, mood swings, hopelessness and suicidal ideation Jarred/Lymph: Denies: easy bruising PFSH ED PFSH: Medical History Chronic post-traumatic stress disorder Depressed Generalized anxiety disorder Major depressive disorder, recurrent episode, moderate with anxious distress Moderate intellectual disabilities Psychiatric care Psychiatric care Ringworm of body Unspecified asthma, uncomplicated Surgical History No pertinent past surgical history Social History Smoking and tobacco status: never smoked Second hand smoke exposure: Yes Alcohol intake: never Adopted: No Caregiver/support person: Yes Lives independently: No Household members: family Marital status: Single service: No Current occupational status: disabled Current gender identity: Female Female Reproductive History: Date of last menstrual period: 05/06/22 Physical Exam Const: COMMON NORMALS: alert HENMT: COMMON NORMALS: atraumatic HEAD & SCALP: atraumatic MOUTH: moist mucous membranes not abnormal Eye: COMMON NORMALS: EOMs intact bilaterally and conjunctivae normal CONJUNCTIVA: Yes conjunctivae normal Neck/C-Spine: COMMON NORMALS: full ROM and supple Resp: COMMON NORMALS: normal respiratory effort and clear to auscultation bilaterally AUSCULTATION: clear to auscultation bilaterally Cardio: COMMON NORMALS: regular rate RATE: regular rate GI: COMMON NORMALS: Soft to palpation and non-tender PALPATION: Yes Soft to palpation Extremity: COMMON NORMALS: full ROM Neuro: SENSORIUM/ORIENTATION: Yes alert MOTOR EXAM: No Abnormal motor strength present and Other motor observations present (no focal motor deficits) Psych: COMMON NORMALS: speech normal SPEECH: Yes normal speech MOOD & AFFECT: Yes depressed mood, Yes tearful and Yes fearful Course Vital Signs: Vital signs: Vital Signs Temperature 98.3 F 05/24/22 18:30 Pulse Rate 85 05/24/22 18:30 Respiratory Rate 18 05/24/22 18:30 Blood Pressure 114/77 05/24/22 18:30 Pulse Oximetry 97 05/24/22 18:30 Oxygen Delivery Me thod 05/24/22 18:30 MDM - General Adult Medical Decision Making [26]yo patient w/ hx of depression presenting for SI with plan. HDS, exam within normal limit Thoughts are linear and organized, and the patient has no AH/VH, or HI. Clinically the patient displays no overt toxidrome; they are well appearing, with low suspicion for toxic ingestion given history and exam. Symptoms unlikely 2/2 anemia, hypothyroidism, infection, or ICH. Workup: CBC, CMP, Lipase, salicylate/tylenol, serum ethanol, HCG, UDS Lab findings: wnl [8:30pm] On reassessment, labs and workup wnl. Patient is hemodynamically stable with no acute medical complaints. Case discussed with psychiatric provider Dr. Inman at [facility] psych inpatient with recommendation for admission Disposition: Psych Discharge Plan Discharge Patient Disposition: Admitted As Inpatient Clinical Impression: Depression with suicidal ideation Condition: Stable Coding Level of Care Code ED Emissions Testing Technician for Chg Fwd Exam Comprehensive
--- NOTE | 2022-05-24 19:26 | PC.PHAR ---
PT UNABLE TO VERIFY MEDS SSTS MOTHER HELPS HER WITH THEM- UNABLE TO CONTACT MOTHER DUE TO PHONE BEING NO LONGER IN SERVICE.- VERIFIED USING EXTERNAL MED LAST FILLED
[2022-05-24 19:45] LABS: Basophils # 0.1 10^3/uL (0.0-0.1); Basophils % 0.6 %; Eosinophils % 0.4 %; Hematocrit 37.3 % (37.0-47.0); Lymphocytes # 1.3 10^3/uL (0.8-4.8); Lymphocytes % 11.9 %; Mean Corpuscular HGB Conc 32.2 g/dL (30.0-36.0); Mean Corpuscular Hemoglobin 28.6 pg (28.0-34.0); Mean Platelet Volume 11.2 fL (7.4-10.4); Monocytes # 0.4 10^3/uL (0.2-0.9); Monocytes % 4.1 %; Neutrophils # 8.85 10^3/uL (1.8-7.7); Neutrophils % 82.8 %; Nucleated Red Blood Cells % 0 %; Platelet Count 342 10^3/cmm (130-400); Red Blood Count 4.19 10^6/uL (4.1-5.3); White Blood Count 10.7 10^3/uL (4.0-10.0)
[2022-05-24 19:55] LABS: Amphetamines Screen Urine Negative (Negative); Barbiturates Screen Urine Negative (Negative); Benzodiazepines Screen Urine Negative (Negative); Cocaine Screen Urine Negative (Negative); Opiate Screen Urine Negative (Negative); PCP Screen Urine Negative (Negative); THC Screen Urine Negative (Negative)
[2022-05-24 20:36] VITALS: RESP 16; O2SAT 99
[2022-05-24 20:41] LABS: Acetaminophen < 5.0 ug/mL (10-30); Alanine Aminotransferase 23 U/L (0-33); Albumin Level 3.8 g/dL (3.5-5.2); Alcohol Level < 10 mg/dL (0-10); Alkaline Phosphatase 80 U/L (35-105); Anion Gap 14.8 (5-19); Aspartate Amino Transferase 15 U/L (0-32); Blood Urea Nitrogen 13 mg/dL (6-20); Calcium 9.4 mg/dL (8.5-10.5); Carbon Dioxide 23 mmol/L (22-29); Chloride 103 mmol/L (98-107); Globulin 3.7 g/dL (1.3-4.6); Glomerular Filtration Rate 122.8 mL/min (90-130); Glucose 90 mg/dL (65-115); Lipase 20 U/L (13-60); Osmolality Calculated 284 mOsm/kg (285-295); Potassium 3.8 mmol/L (3.5-5.1); Salicylate < 0.3 mg/dL (3-10); Sodium 137 mmol/L (136-145); Total Bilirubin 0.2 mg/dL (0.15-1.2); Total Protein 7.5 g/dL (6.6-8.7)
[2022-05-24] MEDS: hyDROXYzine 25 mg Capsule 50 MG PO (21:53)
[2022-05-24 21:55] VITALS: BP 109/77; PULSE 82; RESP 17; TEMP 36.7; O2SAT 96
[2022-05-24] MEDS: ibuprofen 600 mg Tablet PO (22:05)
[2022-05-25] MEDS: sertraline 50 mg Tablet PO ×2 (05:52→10:36)
[2022-05-25 06:38] VITALS: BP 113/79; PULSE 95; RESP 18; TEMP 36.6; O2SAT 99
[2022-05-25] MEDS: loratadine 10 mg Tablet PO (10:36)
[2022-05-25] MEDS: quetiapine 25 mg Tablet PO (10:37)
[2022-05-25] MEDS: loperamide 2 mg Capsule PO (10:41)
[2022-05-25] MEDS: hyDROXYzine 25 mg Capsule 50 MG PO ×2 (10:41→20:55)
[2022-05-25 14:00] VITALS: BP 123/75; PULSE 97; RESP 18; TEMP 36.7; O2SAT 98
[2022-05-25] MEDS: OLANZapine 5 mg ODT PO (14:56)
--- NOTE | 2022-05-25 14:57 | PC.NURSE ---
pt pacing halls, states my blood is boiling and i dont know what to do , pt reports increased anxiety, prmariluz gallagher
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
[2022-05-25] MEDS: propranolol 20 mg Tablet PO (20:49)
[2022-05-25] MEDS: quetiapine 25 mg Tablet 50 MG PO (20:50)
[2022-05-25 21:11] VITALS: BP 116/80; PULSE 113; RESP 16; TEMP 36.9; O2SAT 97
[2022-05-26 06:00] VITALS: BP 122/81; PULSE 83; RESP 16; TEMP 36.6; O2SAT 97
[2022-05-26] MEDS: ondansetron 4 MG Tablet PO (07:04)
--- NOTE | 2022-05-26 07:06 | PC.NURSE ---
medicated patient with zofran 4 mg po for nausea
[2022-05-26] MEDS: sertraline 50 mg Tablet 75 MG PO (09:34)
[2022-05-26] MEDS: hyDROXYzine 25 mg Capsule 50 MG PO (09:35)
[2022-05-26] MEDS: quetiapine 25 mg Tablet PO (09:35)
[2022-05-26] MEDS: propranolol 20 mg Tablet PO ×2 (09:35→21:15)
[2022-05-26] MEDS: loratadine 10 mg Tablet PO (09:35)
--- NOTE | 2022-05-26 11:05 | PC.NURSE ---
PT IN BED AROUSES TO VOICE. PT DENIES PAIN. DENIES SI/HI AND AVH AT THIS TIME. C/O NAUSEA, ZOFRAN WAS GIVEN ORDERED. PT REPORTS ANXIETY 05/04, MED NURSE NOTIFIED TO GIVE ANXIETY MEDICATIONS. PT DOES PRESENT WITH POOR ORAL HYGIENE AND TEETH APPEAR TO BE ROTTED. EDUCATION PROVIDED ON ORAL HYGIENE WITH LITTLE EFFECTIVENESS NOTED. PT STATES SHE DOES NOT LIKE BRUSHING HER TEETH. ALL QUESTIONS ANSWERED AND SUPPORT WAS VOICED.
--- NOTE | 2022-05-26 11:56 | PC.NURSE ---
MEDICATION REFUSAL PT AT NURSES STATION TO TAKE AM MEDS. PT REFUSES TO TAKE ZOLOFT. PT STATES IT MAKES ME CRAZY AND I DON'T TAKE IT. DR. CASTANEDA NOTIFIED OF MEDICATION REFUAL. NO NEW ORDERS RECEIVED.
[2022-05-26 14:00] VITALS: BP 101/69; PULSE 91; RESP 18; TEMP 37.1; O2SAT 96
[2022-05-26] MEDS: acetaminophen 325 mg Tablet 650 MG PO (16:07)
--- NOTE | 2022-05-26 17:16 | W.PM.NPUPNS ---
Subjective NPU Subjective: Patient is a 26-year-old white female with mild cognitive impairment, generalized anxiety disorder, and major depressive disorder who was admitted with suicidal ideation. Patient had reported that the Zoloft had made her more anxious and more suicidal . Patient had reported that she wished to try another medication. She reported having difficulties falling asleep. Patient denied any feelings of hopelessness. She was able to attend groups but appeared minimally communicative. Mental Status Exam MSE Comments: This is an overweight white female in hospital scrubs with limited grooming and poor eye contact. No abnormal movements except for psychomotor retardation. Cooperative with exam in no acute distress. Speech was decreased rate and volume very childlike. Mood described as depressed , affect is anxious and childlike. Thought process: linear and logical. Thought content: patient denies homicidal ideation and reported active suicidal thoughts with no plan today, no delusion thinking reported or noted and denies any auditory or visual hallucinations. [place] thinking noted. Attention and concentration are intact and memory appeared reliable but none were formally tested. She is alert and oriented three times. Insight and judgment are limited. Impulse control is limited. Intelligence commensurable to mild cognitive impairment. Vitals/I&O/Wt Last Vital Signs Temp 98.8 F 05/26/22 14:00 Pulse 91 05/26/22 14:00 Resp 18 05/26/22 14:00 BP 101/69 05/26/22 14:00 Pulse Ox 96 05/26/22 14:00 O2 Del Method 05/26/22 14:00 Weight last 48 hrs Weight 73.482 kg Data NPU : 05/24/22 19:35 05/24/22 19:35 A&P Assessment and plan (1) Major depressive disorder, recurrent episode, moderate with anxious distress: Status: Chronic (2) Depression with suicidal ideation: Status: Acute (3) Generalized anxiety disorder: Status: Chronic (4) Moderate intellectual disabilities: Status: Chronic (5) Intellectual disability: Status: Acute Plan Kieran is a 26-year-old single white female with a history of anxiety disorder not otherwise specified along with major depressive disorder admitted with suicidal ideation after a recent psychiatric hospitalization. 1. Patient refused Zoloft this morning and was agreeable to change medication. Patient to start Paxil 10 mg at night to target anxiety 2. Encourage individual, group and milieu therapy 3. Continue q-15 minute check for safety 4. Recommend sober living treatment at the highest level of care to which the patient is willing to commit. Involuntary Hold Information 96 Hour Hold: 96 Hour Involuntary Admission: No Attestations NPU Medical Necessity Statement*: Inpatient hospitalization is medically necessary and the clinically appropriate intervention at this time. We will monitor medications and make changes as indicated. Patient will be in the hospital with likely length of stay is three to five days. 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
[2022-05-26] MEDS: PARoxetine 20 mg Tablet 10 MG PO (17:29)
[2022-05-26] MEDS: loperamide 2 mg Capsule PO (18:36)
[2022-05-26] MEDS: quetiapine 25 mg Tablet 75 MG PO (21:16)
[2022-05-26 21:53] VITALS: BP 119/86; PULSE 84; RESP 18; TEMP 36.9; O2SAT 98
[2022-05-27 06:00] VITALS: BP 110/70; PULSE 71; RESP 15; TEMP 36.4; O2SAT 97
[2022-05-27] MEDS: propranolol 20 mg Tablet PO ×2 (09:44→20:13)
[2022-05-27] MEDS: loratadine 10 mg Tablet PO (09:44)
[2022-05-27 14:00] VITALS: BP 114/77; PULSE 79; RESP 16; TEMP 36.4; O2SAT 99
--- NOTE | 2022-05-27 16:03 | W.PM.NPUPNS ---
Subjective NPU Subjective: Patient is a 26-year-old white female with mild cognitive impairment, generalized anxiety disorder, and major depressive disorder who was admitted with suicidal ideation. Patient continued to report suffering from chronic worry with an inability to manage her worry and having difficulties with falling asleep and staying asleep at night due to chronic worry. She reported less intense thoughts of jumping out of a car and reports no side effects from her Paxil and Seroquel which was prescribed all at night for the first time last night. She reported feeling less hopeless. She reports that she has not received any psychotherapy on outpatient basis to manage her worries. She continued to struggle with maintaining engagement in groups on the unit. Mental Status Exam MSE Comments: This is a casually dressed white female in hospital scrubs with limited grooming and poor eye contact. No abnormal movements except for psychomotor retardation. Cooperative with exam in no acute distress. Speech was decreased rate and volume and very childlike. Mood described as better. , affect remained anxious and restricted in range. Thought process: linear and logical. Thought content: patient denies homicidal ideation and reported less intense suicidal thoughts with no plan today, no delusion thinking noted. She did not appear to be responding to internal stimuli. Her attention and concentration are intact and memory appeared reliable but none were formally tested. She is alert and oriented three times. Insight and judgment are limited. Impulse control is limited. Intelligence commensurable to mild cognitive impairment. Vitals/I&O/Wt Last Vital Signs Temp 97.6 F 05/27/22 14:00 Pulse 79 05/27/22 14:00 Resp 16 05/27/22 14:00 BP 114/77 05/27/22 14:00 Pulse Ox 99 05/27/22 14:00 O2 Del Method 05/27/22 06:00 Data NPU : 05/24/22 19:35 05/24/22 19:35 A&P Assessment and plan (1) Major depressive disorder, recurrent severe without psychotic features: Status: Acute (2) Depression with suicidal ideation: Status: Acute (3) Generalized anxiety disorder: Status: Chronic (4) Moderate intellectual disabilities: Status: Chronic (5) Intellectual disability: Status: Acute Plan Kieran is a 26-year-old single white female with a history of anxiety disorder not otherwise specified along with major depressive disorder admitted with suicidal ideation after a recent psychiatric hospitalization. 1. Increase Paxil to 20mg at night and Seroquel 75mg at night. 2. Encourage individual, group and milieu therapy 3. Continue q-15 minute check for safety 4. Recommend sober living treatment at the highest level of care to which the patient is willing to commit. Involuntary Hold Information 96 Hour Hold: 96 Hour Involuntary Admission: No Attestations NPU Medical Necessity Statement*: Inpatient hospitalization is medically necessary and the clinically appropriate intervention at this time. We will monitor medications and make changes as indicated. Patient will be in the hospital with likely length of stay is three to five days. Coding Level of Care Code Established Pt Acute Student Life Dean for Chg Fwd Patient Type Established History Problem Focused Exam Problem Focused Medical Decision Making Straight Forward Diagnoses Major depressive disorder, recurrent severe without psychotic features F33.2 Depression with suicidal ideation F32.A; R45.851 Generalized anxiety disorder F41.1 Moderate intellectual disabilities F71 Intellectual disability F79
[2022-05-27] MEDS: PARoxetine 20 mg Tablet PO (17:35)
[2022-05-27] MEDS: quetiapine 25 mg Tablet 75 MG PO (20:13)
[2022-05-27 20:17] VITALS: BP 119/84; PULSE 83; RESP 18; O2SAT 99
[2022-05-28 06:00] VITALS: BP 100/63; PULSE 65; RESP 18; O2SAT 98
[2022-05-28] MEDS: propranolol 20 mg Tablet PO ×2 (08:54→20:49)
[2022-05-28] MEDS: loratadine 10 mg Tablet PO (08:54)
[2022-05-28 13:39] VITALS: BP 108/69; PULSE 74; RESP 16; TEMP 36.7; O2SAT 98
[2022-05-28] MEDS: hyDROXYzine 25 mg Capsule 50 MG PO (15:23)
--- NOTE | 2022-05-28 15:23 | PC.NURSE ---
PRN Medication Patient states she is feeling anxious and feels numb. Vitals BP123/83, HR 69, Resp 16. Vistaril 50mg given PO. Patient later requested to take a shower, shower supplies give and patient showered. Will continue to monitor.
--- NOTE | 2022-05-28 15:26 | W.PM.NPUPNS ---
Subjective NPU Subjective: Patient is a 26-year-old white female with mild cognitive impairment, generalized anxiety disorder, and major depressive disorder who was admitted with suicidal ideation. Patient reports better control of her panic symptoms. She reports no feelings of hopelessness. She had reported less thoughts about hurting herself. She had been reported feeling anxious about being around people continue to remain on the periphery groups. She had reported improved sleep with the Seroquel. She reported that the Paxil has been helpful for making her feel better continued to struggle with managing a reasonable plan of safety if she were to return home this time. Mental Status Exam MSE Comments: This is a casually dressed white female in hospital scrubs with limited grooming and poor eye contact. No abnormal movements except for psychomotor retardation. Cooperative with exam in no acute distress. Speech was decreased rate and volume and very childlike. Mood described as okay. , affect remained anxious and restricted. Thought process: linear and logical. Thought content: patient denies homicidal ideation and reported no suicidal thoughts with no plan today. , no delusion thinking noted. She did not appear to be responding to internal stimuli. Her attention and concentration are intact and memory appeared reliable but none were formally tested. She is alert and oriented three times. Insight and judgment are limited. Impulse control is limited. Intelligence commensurable to mild cognitive impairment. Vitals/I&O/Wt Last Vital Signs Temp 98.0 F 05/28/22 13:39 Pulse 74 05/28/22 13:39 Resp 16 05/28/22 13:39 BP 108/69 05/28/22 13:39 Pulse Ox 98 05/28/22 13:39 O2 Del Method 05/28/22 13:39 Data NPU : 05/24/22 19:35 05/24/22 19:35 A&P Assessment and plan (1) Major depressive disorder, recurrent severe without psychotic features: Status: Acute (2) Depression with suicidal ideation: Status: Acute (3) Generalized anxiety disorder: Status: Chronic (4) Moderate intellectual disabilities: Status: Chronic (5) Intellectual disability: Status: Acute Plan Kieran is a 26-year-old single white female with a history of anxiety disorder not otherwise specified along with major depressive disorder admitted with suicidal ideation after a recent psychiatric hospitalization. 1. Continue Paxil to 20mg at night and Seroquel 75mg at night along with propranolol 20mg bid. 2. Encourage individual, group and milieu therapy 3. Continue q-15 minute check for safety 4. Recommend sober living treatment at the highest level of care to which the patient is willing to commit. 5. Begin safety planning and attempt to schedule follow up appointment. Involuntary Hold Information 96 Hour Hold: 96 Hour Involuntary Admission: No Attestations NPU Medical Necessity Statement*: Inpatient hospitalization is medically necessary and the clinically appropriate intervention at this time. We will monitor medications and make changes as indicated. Patient will be in the hospital with likely length of stay is three to five days. 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
--- NOTE | 2022-05-28 16:00 | PC.NURSE ---
PRN Follow Up Patient lying in bed with eyes open. Resp even and unlabored, pulse regular rhythm 72 bpm. Will continue to monitor.
[2022-05-28] MEDS: PARoxetine 20 mg Tablet PO (17:42)
[2022-05-28 19:58] VITALS: BP 110/68; PULSE 76; RESP 16; TEMP 36.7; O2SAT 98
[2022-05-28] MEDS: quetiapine 25 mg Tablet 75 MG PO (20:49)
[2022-05-29 06:00] VITALS: BP 107/74; PULSE 78; RESP 17; TEMP 36.7; O2SAT 97
[2022-05-29] MEDS: hyDROXYzine 25 mg Capsule 50 MG PO (07:34)
[2022-05-29] MEDS: loratadine 10 mg Tablet PO (08:55)
[2022-05-29] MEDS: propranolol 20 mg Tablet PO ×2 (08:55→20:17)
[2022-05-29 13:31] VITALS: BP 102/71; PULSE 80; RESP 16; TEMP 36.8; O2SAT 98
[2022-05-29] MEDS: PARoxetine 20 mg Tablet PO (17:08)
--- NOTE | 2022-05-29 18:20 | W.PM.NPUPNS ---
Subjective NPU Subjective: Patient is a 26-year-old white female with mild cognitive impairment, generalized anxiety disorder, and major depressive disorder who was admitted with suicidal ideation. Patient was continuing to isolate herself on milieu. She reported no side effects on her medication and reported having no thoughts of hurting herself. She reported no recent panic attacks. She reported improved sleep on Seroquel. She denies any feelings of hopelessness. She reports that she has not been receiving any psychotherapy at this time. She reports no side effect medication Mental Status Exam MSE Comments: This is a casually dressed white female in hospital scrubs with limited grooming and poor eye contact. No abnormal movements except for psychomotor retardation. Cooperative with exam in no acute distress. Speech was decreased rate and normal volume appreciated and very childlike. Mood described as good. ,Her affect remained restricted. Thought process: linear and logical. Thought content: patient denies homicidal ideation and reported no suicidal thoughts with no plan today., no delusion thinking noted. She did not appear to be responding to internal stimuli. Her attention and concentration are intact and memory appeared reliable but none were formally tested. She is alert and oriented three times. Insight and judgment are limited. Impulse control is limited. Intelligence commensurable with mild cognitive impairment. Vitals/I&O/Wt Last Vital Signs Temp 98.2 F 05/29/22 13:31 Pulse 80 05/29/22 13:31 Resp 16 05/29/22 13:31 BP 102/71 05/29/22 13:31 Pulse Ox 98 05/29/22 13:31 O2 Del Method 05/29/22 13:31 Weight last 48 hrs Weight 73.301 kg Data NPU : 05/24/22 19:35 05/24/22 19:35 A&P Assessment and plan (1) Major depressive disorder, recurrent severe without psychotic features: Status: Acute (2) Depression with suicidal ideation: Status: Acute (3) Generalized anxiety disorder: Status: Chronic (4) Moderate intellectual disabilities: Status: Chronic (5) Intellectual disability: Status: Acute Plan Kieran is a 26-year-old single white female with a history of anxiety disorder not otherwise specified along with major depressive disorder admitted with suicidal ideation after a recent psychiatric hospitalization. 1. Continue Paxil to 20mg at night and Seroquel 75mg at night along with propranolol 20mg bid. 2. Encourage individual, group and milieu therapy 3. Continue q-15 minute check for safety 4. Recommend sober living treatment at the highest level of care to which the patient is willing to commit. 5. Begin safety planning and attempt to schedule follow up appointment. Involuntary Hold Information 96 Hour Hold: 96 Hour Involuntary Admission: No Attestations NPU Medical Necessity Statement*: Inpatient hospitalization is medically necessary and the clinically appropriate intervention at this time. We will monitor medications and make changes as indicated. Patient will be in the hospital with likely discharge tommorow. 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
[2022-05-29 20:10] VITALS: BP 111/74; PULSE 83; RESP 18; TEMP 36.7; O2SAT 97
[2022-05-29] MEDS: quetiapine 25 mg Tablet 75 MG PO (20:17)
[2022-05-30] MEDS: loratadine 10 mg Tablet PO (08:36)
[2022-05-30] MEDS: propranolol 20 mg Tablet PO (08:36)
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
[2022-05-30 11:51] VITALS: BP 111/74; PULSE 83; RESP 18; TEMP 36.7; O2SAT 97
== END 2022-05-30 13:50 | disposition home or self-care (01) | DRG 885 ==
LOC: ER 19:18 → NP 20:37
PROVIDERS: Admitting Provider Psychiatry & Neurology Psychiatry; Emergency Provider Emergency Medicine; PCP Physician Assistant; Visit Provider Psychiatry & Neurology Psychiatry
DX: F33.1 Major depressive disorder, recurrent, moderate (principal); R45.851 Suicidal ideations; F41.1 Generalized anxiety disorder; F71 Moderate intellectual disabilities; Z81.8 Family history of other mental and behavioral disorders; F43.12 Post-traumatic stress disorder, chronic; J45.909 Unspecified asthma, uncomplicated; E66.9 Obesity, unspecified; Z68.28 Body mass index [BMI] 28.0-28.9, adult
CPT/HCPCS: 80053; 80306; 80307; 81025; 83690; 85025; 97150; 97165; 99285; Q0162

== ENCOUNTER → 2022-09-26 14:30 | Outpatient (BNVA) | payer MEDICAID, SELFPAY | PROVIDERS: PCP Physician Assistant; Visit Provider Family Medicine | DX: J02.9 Acute pharyngitis, unspecified (principal) | CPT/HCPCS: 87880 ==

== ENCOUNTER → 2022-11-04 12:31 | Outpatient (BNVA) | payer MEDICAID, SELFPAY | PROVIDERS: PCP Physician Assistant; Visit Provider Nurse Practitioner Psychiatric/Mental Health | DX: F33.1 Major depressive disorder, recurrent, moderate (principal); F43.12 Post-traumatic stress disorder, chronic; F41.1 Generalized anxiety disorder; Z79.899 Other long term (current) drug therapy; F71 Moderate intellectual disabilities | CPT/HCPCS: 83036 ==

== ENCOUNTER → 2023-02-22 11:11 | Outpatient (BNVA) | payer MEDICAID, OTHER, SELFPAY | PROVIDERS: PCP Physician Assistant; Visit Provider Nurse Practitioner Psychiatric/Mental Health | DX: Z79.899 Other long term (current) drug therapy (principal) | CPT/HCPCS: 80053; 80061 ==

== ENCOUNTER → 2023-07-26 09:00 | Outpatient (BNVA) | payer MEDICAID, SELFPAY | PROVIDERS: PCP Physician Assistant; Visit Provider Nurse Practitioner Women's Health | DX: Z01.818 Encounter for other preprocedural examination (principal); Z30.9 Encounter for contraceptive management, unspecified; Z30.017 Encounter for initial prescription of implantable subdermal contraceptive | CPT/HCPCS: 81025 ==

== ENCOUNTER → 2023-08-19 16:16 | Outpatient (BNVA) | payer MEDICAID, SELFPAY | PROVIDERS: PCP Physician Assistant; Visit Provider Registered Nurse Neonatal Intensive Care | DX: R30.0 Dysuria (principal); N39.0 Urinary tract infection, site not specified | CPT/HCPCS: 81000 ==

== ENCOUNTER → 2023-09-24 15:43 | Outpatient (BNVA) | payer MEDICAID, SELFPAY | PROVIDERS: PCP Physician Assistant; Visit Provider Emergency Medicine | DX: R39.9 Unspecified symptoms and signs involving the genitourinary system (principal); H69.92 Unspecified Eustachian tube disorder, left ear; N30.01 Acute cystitis with hematuria | CPT/HCPCS: 81000 ==

== ENCOUNTER → 2024-01-10 15:25 | Outpatient (BNVA) | payer MEDICAID, SELFPAY | PROVIDERS: PCP Physician Assistant; Visit Provider Nurse Practitioner Psychiatric/Mental Health | DX: Z79.899 Other long term (current) drug therapy (principal); F71 Moderate intellectual disabilities; F33.1 Major depressive disorder, recurrent, moderate; F43.12 Post-traumatic stress disorder, chronic; F41.1 Generalized anxiety disorder | CPT/HCPCS: 80053; 80061; 83036 ==

== ENCOUNTER → 2024-06-15 14:19 | Outpatient (BNVA) | payer MEDICAID, SELFPAY | PROVIDERS: PCP Physician Assistant | DX: R39.9 Unspecified symptoms and signs involving the genitourinary system (principal); R82.90 Unspecified abnormal findings in urine | CPT/HCPCS: 81000; 87086 ==

== ENCOUNTER 2024-06-27 11:39 | Emergency (ER) | payer MEDICAID, SELFPAY ==
[2024-06-27 11:46] VITALS: BP 106/70; PULSE 81; RESP 17; TEMP 36.7; O2SAT 97
--- NOTE | 2024-06-27 11:51 | XR_ITS ---
WS: [email or web address] Exam: XR knee RT 3V* [id number] Date/Time of Exam: 06/27/2024 12:24 PM Reason For Exam: injury No fracture or dislocation. The joint compartments are preserved. No joint effusion. Normal soft tiss ues. XR/XR knee RT 3V* [id number] IMPRESSION: 1. Normal RIGHT knee.
--- NOTE | 2024-06-27 11:56 | XR_ITS ---
WS: [email or web address] Exam: XR wrist RT min 3V* [id number] Date/Time of Exam: 06/27/2024 12:24 PM Reason For Exam: injury No fracture or dislocation. The joints are preserved. Normal soft tissues. XR/XR wrist RT min 3V* [id number] IMPRESSION: 1. Normal RIGHT wrist.
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
[2024-06-27 13:16] VITALS: PULSE 63; O2SAT 98
== END 2024-06-27 13:17 | disposition home or self-care (01) ==
PROVIDERS: Emergency Provider Emergency Medicine; PCP Physician Assistant
DX: S80.01XA Contusion of right knee, initial encounter (principal); S60.811A Abrasion of right wrist, initial encounter; Z77.22 Contact with and (suspected) exposure to environmental tobacco smoke (acute) (chronic); V89.2XXA Person injured in unspecified motor-vehicle accident, traffic, initial encounter
CPT/HCPCS: 73110; 73562; 99283

== ENCOUNTER → 2024-08-13 15:31 | Outpatient (BNVA) | payer MEDICAID, SELFPAY | PROVIDERS: PCP Physician Assistant; Visit Provider Nurse Practitioner Women's Health | DX: Z12.4 Encounter for screening for malignant neoplasm of cervix (principal) | CPT/HCPCS: 88175 ==

== ENCOUNTER 2024-09-08 05:47 | Emergency (ER) | payer MEDICAID, SELFPAY ==
[2024-09-08 05:51] VITALS: BP 117/79; PULSE 78; RESP 18; TEMP 36.6; O2SAT 99; BMI 35.4
--- NOTE | 2024-09-08 05:58 | CTR_ITS ---
PROCEDURE INFORMATION: Exam: CT Abdomen And Pelvis With Contrast Exam date and time: 09/08/2024 7:31 AM Age: 29 years old Clinical indication: Abdominal pain; Localized; Right lower quadrant (rlq); Additional info: Abd pain TECHNIQUE: Imaging protocol: Computed tomography of the abdomen and pelvis with contrast. Radiation optimization: All CT scans at this facility use at least one of these dose optimization techniques: automated exposure control; mA and/or kV adjustment per patient size (includes targeted exams where dose is matched to clinical indication); or iterative reconstruction. Contrast material: OMNIPAQUE 350; Contrast volume: 100 ml; Contrast route: INTRAVENOUS (IV); COMPARISON: CT kidney stone [id number] 10/17/2019 9:08 AM RADIATION DOSE METRICS: Total DLP (mGy-cm): 893.5 FINDINGS: Liver: Focal fatty infiltration adjacent to the falciform ligament, in segment 4 of the liver. Gallbladder and biliary ducts: Normal. No calcified stones. No ductal dilation. Pancreas: Normal. No ductal dilation. Spleen: Normal. No splenomegaly. Adrenal glands: Normal. No mass. Kidneys and ureters: Normal. No hydronephrosis. Stomach and bowel: Unremarkable. No obstruction. No mucosal thickening. Appendix: No evidence of appendicitis. Intraperitoneal space: Unremarkable. No free air. No significant fluid collection. Vasculature: Unremarkable. No abdominal aortic aneurysm. Lymph nodes: Unremarkable. No enlarged lymph nodes. Urinary bladder: Unremarkable as visualized. Reproductive: Suspicion of arcuate/bicornuate uterus. Bones/joints: Unremarkable. No acute fracture. Soft tissues: Unremarkable. CT/CT abdomen pelvis w con* [id number] IMPRESSION: No acute intra-abdominal process.
--- NOTE | 2024-09-08 06:05 | W.ED.ABDPA2 ---
HPI - Abdominal Pain General: Chief Complaint: Abdominal Pain Stated Complaint: abdomen pain Time Seen by Provider: 09/08/24 05:54 Source: patient and EMS Mode of arrival: EMS Limitations: no limitations History of Present Illness: 29-year-old female states that she is having a bowel movement this morning started having some right lower quadrant pain states pains been sharp in nature diffuse rates her pain a 3 out of 10 has had some nausea as well patient denies any fever denies any vaginal discharge denies any worse improved factors. Associated Symptoms: Reports nausea and vomiting; Denies chills, diarrhea, dysuria and fever(s) Related Data Home Medications Medication Instructions Recorded Confirmed etonogestrel 68 mg subdermal subdermal 08/26/24 08/26/24 implant (Nexplanon) Previous Rx's Medication Instructions Recorded paroxetine HCl 20 mg tablet 20 mg PO .6 pm #30 tabs 08/08/24 propranolol 10 mg tablet 10 mg PO BID #60 tabs 08/08/24 quetiapine 150 mg tablet,extended 150 mg PO .7 pm #30 tabs 08/08/24 release 24 hr (Seroquel XR) topiramate 25 mg tablet (Topamax) 25 mg PO .noon #30 tabs 08/08/24 cephalexin 500 mg capsule 500 mg PO TID 7 days #21 caps 09/08/24 Allergies Allergy/AdvReac Type Severity Reaction Status Date / Time phenazopyridine Allergy unknown Verified 08/13/24 08:26 Review of Systems Const: Denies: fever(s), chills, body aches or change in appetite ENMT: Denies: throat pain or dental pain Card: Denies: chest pain Resp: Denies: dyspnea GI: Reports: abdominal pain, nausea and vomiting; Denies: diarrhea : Denies: dysuria Musc: Denies: neck pain or back pain Skin/Breast: Denies: rash Neuro: Denies: headache(s) PFSH ED PFSH: Medical History Psychiatric care Psychiatric care Ringworm of body Unspecified asthma, uncomplicated Moderate intellectual disabilities Generalized anxiety disorder Chronic post-traumatic stress disorder Major depressive disorder, recurrent episode, moderate with anxious distress Surgical History No pertinent past surgical history Social History Smoking and tobacco/nicotine status: never used tobacco/nicotine Second hand smoke exposure: Yes Alcohol intake: never Substance/Drug Use: never Adopted: No Caregiver/support person: Yes Lives independently: No Household members: family Marital status: Single service: No Current occupational status: disabled Current gender identity: Female Physical Exam Const: COMMON NORMALS: no acute distress, patient oriented x3 and healthy appearing HENMT: COMMON NORMALS: normocephalic and atraumatic HEAD & SCALP: normocephalic and atraumatic Eye: COMMON NORMALS: conjunctivae normal CONJUNCTIVA: Yes conjunctivae normal Neck/C-Spine: COMMON NORMALS: full ROM and supple Chest: COMMONS NORMALS: normal inspection of the chest Resp: COMMON NORMALS: normal respiratory effort Cardio: COMMON NORMALS: regular rate, regular rhythm and No murmurs present (Cardio) RATE: regular rate RHYTHM: regular rhythm GI: COMMON NORMALS: Normal to inspection, nondistended, normoactive bowel sounds present, Soft to palpation and no masses PALPATION: Yes Soft to palpation and Yes Tenderness to palpation present (GI) Details: RLQ Extremity: COMMON NORMALS: normal to inspection and full ROM Neuro: COMMON NORMALS: patient oriented x3, moves all extremities and no focal motor deficits Psych: COMMON NORMALS: mental status grossly normal, Normal thought process present and cooperative THOUGHT PROCESS: Normal thought process present Skin: COMMON NORMALS: no rashes or lesions noted and no wounds GENERAL SKIN EXAM: no rashes or lesions noted Course Vital Signs: Vital signs: Vital Signs Temperature 97.8 F 09/08/24 05:51 Pulse Rate 78 09/08/24 06:52 Respiratory Rate 18 09/08/24 06:52 Blood Pressure 115/66 09/08/24 06:52 Pulse Oximetry 97 09/08/24 06:52 Oxygen Delivery Me thod Room Air 09/08/24 06:52 MDM - Abdominal Pain Medical Decision Making Patient presents with abdominal pain found to have acute cystitis CT shows no acute findings patient is well-appearing here stable for discharge. Medical Records I reviewed the patient's medical records. Lab Data I reviewed the patient's lab results. 09/08/24 06:45 09/08/24 08:00 Labs/Radiology: Radiology Impressions Abdomen/Pelvis CT 09/08/24 05:58 IMPRESSION: No acute intra-abdominal process. Laboratory Results WBC 17.54 10^3/uL (3.29-11.43) H 09/08/24 06:45 RBC 5.00 10^6/uL (3.85-5.65) 09/08/24 06:45 Hgb 13.70 g/dL (11.27-16.99) 09/08/24 06:45 Hct 43.5 % (36-47) 09/08/24 06:45 MCV 87.0 fl (85-98) 09/08/24 06:45 MCH 27.4 pg (27-33) 09/08/24 06:45 MCHC 31.5 g/dL (30-55) 09/08/24 06:45 RDW 14.9 % (12.1-15.1) 09/08/24 06:45 Plt Count 297 10^3/cmm (157-399) 09/08/24 06:45 MPV 11.5 fL (7.4-10.4) H 09/08/24 06:45 Neut % (Auto) 83.0 % 09/08/24 06:45 Lymph % (Auto) 11.2 % 09/08/24 06:45 [place] % (Auto) 3.9 % 09/08/24 06:45 Eos % (Auto) 1.2 % 09/08/24 06:45 Baso % (Auto) 0.4 % 09/08/24 06:45 Neut # (Auto) 14.55 10^3/uL (1.8-7.7) H 09/08/24 06:45 Lymph # (Auto) 2.0 10^3/uL (0.8-4.8) 09/08/24 06:45 [place] # (Auto) 0.7 10^3/uL (0.2-0.9) 09/08/24 06:45 Eos # (Auto) 0.2 10^3/uL (0.0-0.8) 09/08/24 06:45 Baso # (Auto) 0.1 10^3/uL (0.0-0.1) 09/08/24 06:45 Nucleated RBC % (auto) 0 % 09/08/24 06:45 Nucleated RBCs # 0.0 /100WBC 09/08/24 06:45 Sodium 141 mmol/L (136-145) 09/08/24 08:00 Potassium 3.4 mmol/L (3.5-5.1) L 09/08/24 08:00 Chloride 113 mmol/L (98-107) H 09/08/24 08:00 Carbon Dioxide 17 mmol/L (22-29) L 09/08/24 08:00 Anion Gap 14.4 (5-19) 09/08/24 08:00 BUN 12 mg/dL (6-20) 09/08/24 08:00 Creatinine 0.7 mg/dL (0.5-0.9) 09/08/24 08:00 GFR Calculation 100.4 mL/min (90-130) 09/08/24 08:00 Glucose 79 mg/dL (65-115) 09/08/24 08:00 Calculated Osmolality 291 mOsm/kg (285-295) 09/08/24 08:00 Calcium 7.3 mg/dL (8.5-10.5) L 09/08/24 08:00 Total Bilirubin 0.2 mg/dL (0.15-1.2) 09/08/24 08:00 AST 12 U/L (0-32) 09/08/24 08:00 ALT 17 U/L (0-33) 09/08/24 08:00 Alkaline Phosphatase 105 U/L (35-105) 09/08/24 08:00 Total Protein 6.1 g/dL (6.6-8.7) L 09/08/24 08:00 Albumin 2.9 g/dL (3.5-5.2) L 09/08/24 08:00 Globulin 3.2 g/dL (1.3-4.6) 09/08/24 08:00 Lipase 21 U/L (13-60) 09/08/24 08:00 HCG, Qual Negative (Negative) 09/08/24 06:49 Urine Color Dark yellow (Yellow) A 09/08/24 06:50 Urine Appearance Cloudy (CLEAR) A 09/08/24 06:50 Urine pH 5.5 (5-7) 09/08/24 06:50 Ur Specific [place] 1.028 (1.005-1.030) 09/08/24 06:50 Urine Protein 1+ (Negative) A 09/08/24 06:50 Urine Glucose (UA) Negative (Normal) 09/08/24 06:50 Urine Ketones Negative (Negative) 09/08/24 06:50 Urine Blood 1+ (Negative) A 09/08/24 06:50 Urine Nitrate Negative (Negative) 09/08/24 06:50 Urine Bilirubin Negative (Negative) 09/08/24 06:50 Urine Urobilinogen 1.0 mg/dL (Negative) 09/08/24 06:50 Ur Leukocyte Esterase 1+ (Negative) A 09/08/24 06:50 Urine RBC 6-10 /hpf (0-2) 09/08/24 06:50 Urine WBC 51-100 /hpf (0-5) H 09/08/24 06:50 Ur Squamous Epith Cells 0-5 /hpf (0-5) 09/08/24 06:50 Amorphous Sediment Not Reportable 09/08/24 06:50 Urine Bacteria 1+ /hpf (NONE) H 09/08/24 06:50 Hyaline Casts 2.87 /lpf 09/08/24 06:50 All radiology interpretation(s) finalized by discharge Discharge Plan Discharge Patient Disposition: Home Clinical Impression: Abdominal pain, Acute cystitis Condition: Stable Prescriptions: New cephalexin 500 mg capsule 500 mg PO TID 7 Days Qty: 21 0RF No Action topiramate [Topamax] 25 mg tablet 25 mg PO .noon Qty: 30 6RF Rx Instructions: Take one tablet at noon quetiapine [Seroquel XR] 150 mg tablet extended release 24 hr 150 mg PO .7 pm Qty: 30 6RF Rx Instructions: Take one tablet at 7 pm propranolol 10 mg tablet 10 mg PO BID Qty: 60 6RF Rx Instructions: Take one tablet twice per day, morning and evening paroxetine HCl 20 mg tablet 20 mg PO .6 pm Qty: 30 6RF Rx Instructions: Take one tablet at 6 pm Nexplanon 68 mg implant subdermal Discharge Orders: Discharge ED (Routine); Ordered 09/08/24 Ordered By: Hernandez Mcgee Referrals: Diana Brooks PA [Primary Care Provider] - Discharge Diet: Advance as tolerated Discharge Activity: Resume usual activity Patient Instructions: Urinary Tract Infection in Women (ED), Abdominal Pain (ED) Coding Level of Care Code ED Attending Radiologist for Ed Byers
[2024-09-08] MEDS: ondansetron 2 mg/ML SDV 2 mL 4 MG IVP (06:42)
[2024-09-08 06:49] LABS: Basophils # 0.1 10^3/uL (0.0-0.1); Basophils % 0.4 %; Eosinophils # 0.2 10^3/uL (0.0-0.8); Eosinophils % 1.2 %; Hematocrit 43.5 % (36-47); Lymphocytes % 11.2 %; Mean Corpuscular HGB Conc 31.5 g/dL (30-55); Mean Corpuscular Hemoglobin 27.4 pg (27-33); Mean Platelet Volume 11.5 fL (7.4-10.4); Monocytes # 0.7 10^3/uL (0.2-0.9); Monocytes % 3.9 %; Neutrophils # 14.55 10^3/uL (1.8-7.7); Nucleated Red Blood Cells % 0 %; Platelet Count 297 10^3/cmm (157-399); Red Cell Distribution Width 14.9 % (12.1-15.1); White Blood Count 17.54 10^3/uL (3.29-11.43)
[2024-09-08 06:52] VITALS: BP 115/66; PULSE 78; RESP 18; O2SAT 97
[2024-09-08 07:00] LABS: Bilirubin Urine Negative (Negative); Blood Urine 1+ (Negative); Glucose Urine UA Negative (Normal); Ketones Urine Negative (Negative); Leukocyte Esterase Urine 1+ (Negative); Nitrate Urine Negative (Negative); Protein Urine 1+ (Negative); Specific Gravity, Urine 1.028 (1.005-1.030); Urine Appearance Cloudy (CLEAR); Urine Color Dark Yellow (Yellow); pH Urine 5.5 (5-7)
[2024-09-08 07:03] LABS: HCG Qualitative Urine. Negative (Negative)
[2024-09-08 07:10] LABS: Add Urine Microscopic? YES; Bacteria Urine 1+ /hpf; Hyaline Casts Urine 2.87 /lpf; Squamous Epithelial Cell Urine 0-5 /hpf (0-5); WBC Urine 51-100 /hpf (0-5)
[2024-09-08 07:15] LABS: Add Urine Culture? Yes
[2024-09-08] MEDS: iohexol 350 mg/mL 500 mL Btl (per mL) IV (07:40)
[2024-09-08 08:20] LABS: Alanine Aminotransferase 17 U/L (0-33); Albumin Level 2.9 g/dL (3.5-5.2); Alkaline Phosphatase 105 U/L (35-105); Anion Gap 14.4 (5-19); Aspartate Amino Transferase 12 U/L (0-32); Blood Urea Nitrogen 12 mg/dL (6-20); Calcium 7.3 mg/dL (8.5-10.5); Carbon Dioxide 17 mmol/L (22-29); Chloride 113 mmol/L (98-107); Creatinine Clr Calc Pharmacy 129.0714; Globulin 3.2 g/dL (1.3-4.6); Glomerular Filtration Rate 100.4 mL/min (90-130); Glucose 79 mg/dL (65-115); Lipase 21 U/L (13-60); Osmolality Calculated 291 mOsm/kg (285-295); Potassium 3.4 mmol/L (3.5-5.1); Sodium 141 mmol/L (136-145); Total Bilirubin 0.2 mg/dL (0.15-1.2); Total Protein 6.1 g/dL (6.6-8.7)
[2024-09-08] MEDS: cefTRIAXone 1,000 mg SDV 1000 MG IVP (08:39)
[2024-09-08 08:41] VITALS: BP 119/80; PULSE 60; O2SAT 99
[2024-09-08 08:50] VITALS: BP 119/80; PULSE 60; O2SAT 99
== END 2024-09-08 08:52 | disposition home or self-care (01) ==
PROVIDERS: Emergency Provider Emergency Medicine; PCP Physician Assistant
DX: R10.31 Right lower quadrant pain (principal); N30.00 Acute cystitis without hematuria
CPT/HCPCS: 36415; 74177; 80053; 81001; 81025; 83690; 85025; 87086; 96374; 96375; 99285; J0696; J2405

== ENCOUNTER 2024-10-10 05:18 | Emergency (ER) | payer MEDICAID, SELFPAY ==
[2024-10-10 05:31] VITALS: BP 116/79; PULSE 100; RESP 16; TEMP 36.4; O2SAT 98; BMI 35.4
[2024-10-10 06:04] LABS: Bilirubin Urine Negative (Negative); Blood Urine Negative (Negative); Glucose Urine UA Negative (Normal); Ketones Urine Trace (Negative); Leukocyte Esterase Urine 2+ (Negative); Nitrate Urine Negative (Negative); Protein Urine Trace (Negative); Urine Appearance Clear (CLEAR); Urine Color Yellow (Yellow)
[2024-10-10 06:09] LABS: Add Urine Microscopic? YES; Bacteria Urine Trace /hpf; Hyaline Casts Urine 2.87 /lpf; RBC Urine 0-2 /hpf (0-2); Squamous Epithelial Cell Urine 0-5 /hpf (0-5); WBC Urine 21-50 /hpf (0-5)
[2024-10-10 06:14] VITALS: BP 133/83; PULSE 97; O2SAT 96
[2024-10-10 06:15] LABS: Add Urine Culture? Yes; Specific Gravity, Urine 1.034 (1.005-1.030)
--- NOTE | 2024-10-10 07:45 | W.ED.GENADLT ---
HPI - General Adult General: Chief complaint: General Medical Stated complaint: Mouth Pain, Burn when pees Time Seen by Provider: 10/10/24 06:14 History of Present Illness: Patient complains of left-sided dental pain for a few days. She states she recently saw dentist and had a tooth pulled on the right side. Then the left side started bothering her. She also has some urinary frequency and burning with urination for the last few days. No fever. No headache or chest pain or shortness of breath. Mild cough. No abdominal pain. She states she is not sexually active and no possibility of and declines doing a test. No abdominal pain. No vomiting. She has some nausea. She states mainly she is having pain in her left lower tooth. She has some swelling in that area she tells me. It does radiate to the left ear. She states she has no medical problems. She tells me she is not allergic to any medications. Patient states she would like something for pain. Patient states she did try taking Tylenol and ibuprofen for the pain Related Data Home Medications Medication Instructions Recorded Confirmed etonogestrel 68 mg subdermal 1 implant subdermal Q36M 08/26/24 10/10/24 implant (Nexplanon) acetaminophen 500 mg tablet 1,000 mg PO QID PRN Pain 10/10/24 10/10/24 (Tylenol Extra Strength) Previous Rx's Medication Instructions Recorded paroxetine HCl 20 mg tablet 20 mg PO .6 pm #30 tabs 08/08/24 propranolol 10 mg tablet 10 mg PO BID #60 tabs 08/08/24 quetiapine 150 mg tablet,extended 150 mg PO .7 pm #30 tabs 08/08/24 release 24 hr (Seroquel XR) topiramate 25 mg tablet (Topamax) 25 mg PO .noon #30 tabs 08/08/24 amoxicillin 500 mg capsule 500 mg PO TID 10 days #30 caps 10/10/24 Allergies Allergy/AdvReac Type Severity Reaction Status Date / Time phenazopyridine Allergy unknown Verified 08/13/24 08:26 [facility] ED PFSH: Medical History Psychiatric care Psychiatric care Ringworm of body Unspecified asthma, uncomplicated Moderate intellectual disabilities Generalized anxiety disorder Chronic post-traumatic stress disorder Major depressive disorder, recurrent episode, moderate with anxious distress Surgical History No pertinent past surgical history Social History Smoking and tobacco/nicotine status: never used tobacco/nicotine Second hand smoke exposure: Yes Alcohol intake: never Substance/Drug Use: never Adopted: No Caregiver/support person: Yes Lives independently: No Household members: family Marital status: Single service: No Current occupational status: disabled Current gender identity: Female Physical Exam Narrative: EXAM NARRATIVE: Patient is alert mild discomfort. Patient has some swelling over the lower jaw on the left. She has multiple areas of dental caries and poor dentition. The patient has some tenderness over the left bottom tooth with mild erythema. No trismus. TMs are normal. Neck is supple. No cervical lymphadenopathy on palpation. Abdomen soft nontender no guarding or rebound. Extremities warm well-perfused. Heart is regular rate and rhythm no rubs no murmurs. Lung sounds were clear. Patient is alert oriented and has clear speech. Const: COMMON NORMALS: patient oriented x3 and alert ORIENTATION/CONSCIOUSNESS: Yes oriented to person Eye: COMMON NORMALS: Equal, round and reactive pupils present and EOMs intact bilaterally PUPIL: Yes Equal, round and reactive pupils present Neck/C-Spine: COMMON NORMALS: supple and no meningeal signs Resp: COMMON NORMALS: normal respiratory effort, No retractions, No use of accessory muscles and clear to auscultation bilaterally AUSCULTATION: clear to auscultation bilaterally Cardio: COMMON NORMALS: regular rate and regular rhythm RATE: regular rate RHYTHM: regular rhythm GI: COMMON NORMALS: Soft to palpation and non-tender PALPATION: Yes Soft to palpation Extremity: COMMON NORMALS: no pedal edema Neuro: COMMON NORMALS: patient oriented x3 SENSORIUM/ORIENTATION: Yes alert and Yes oriented to person MENINGEAL SIGNS: Yes no meningeal signs Psych: COMMON NORMALS: mental status grossly normal Skin: COMMON NORMALS: no rashes or lesions noted GENERAL SKIN EXAM: no rashes or lesions noted Course Vital Signs: Vital signs: Vital Signs Temperature 97.6 F 10/10/24 05:31 Pulse Rate 85 10/10/24 08:30 Respiratory Rate 17 10/10/24 08:30 Blood Pressure 138/70 10/10/24 08:30 Pulse Oximetry 98 10/10/24 08:30 Oxygen Delivery Me thod Room Air 10/10/24 05:31 MDM - General Adult Medical Decision Making Patient presents complaint of dental pain. She also has some mild urinary symptoms. Patient urinalysis ordered and shows findings consistent with UTI. The patient has evidence of dental infection. Patient declines doing test and she states she is not sexually active. Patient would like something for pain and I provided hydrocodone 01/25/2025 2 tablets p.o. she states she will not be driving. I advised her to continue [id number] medications as directed. She denies having kidney problems or diabetes. Will place the patient on amoxicillin. I gave her 1000 mg of amoxicillin here. Will prescribe amoxicillin for home and I advised her and her mother to contact their dentist today for prompt follow-up. Advised signs symptoms of worsening to watch and return for. Patient agrees with plan after informed discussion. Lab Data Laboratory Results Urine Color Yellow (Yellow) 10/10/24 05:54 Urine Appearance Clear (CLEAR) 10/10/24 05:54 Urine pH 6.0 (5-7) 10/10/24 05:54 Ur Specific [place] 1.034 (1.005-1.030) H 10/10/24 05:54 Urine Protein Trace (Negative) A 10/10/24 05:54 Urine Glucose (UA) Negative (Normal) 10/10/24 05:54 Urine Ketones Trace (Negative) 10/10/24 05:54 Urine Blood Negative (Negative) 10/10/24 05:54 Urine Nitrate Negative (Negative) 10/10/24 05:54 Urine Bilirubin Negative (Negative) 10/10/24 05:54 Urine Urobilinogen 1.0 mg/dL (Negative) 10/10/24 05:54 Ur Leukocyte Esterase 2+ (Negative) A 10/10/24 05:54 Urine RBC 0-2 /hpf (0-2) 10/10/24 05:54 Urine WBC 21-50 /hpf (0-5) H 10/10/24 05:54 Ur Squamous Epith Cells 0-5 /hpf (0-5) 10/10/24 05:54 Amorphous Sediment Not Reportable 10/10/24 05:54 Urine Bacteria Trace /hpf (NONE) 10/10/24 05:54 Hyaline Casts 2.87 /lpf 10/10/24 05:54 All radiology interpretation(s) finalized by discharge Discharge Plan Discharge Patient Disposition: Home Clinical Impression: Pain, dental UTI (urinary tract infection) Qualifiers: Urinary tract infection type: acute cystitis Condition: Stable Prescriptions: New amoxicillin 500 mg capsule 500 mg PO TID 10 Days Qty: 30 0RF No Action topiramate [Topamax] 25 mg tablet 25 mg PO .noon Qty: 30 6RF Rx Instructions: Take one tablet at noon quetiapine [Seroquel XR] 150 mg tablet extended release 24 hr 150 mg PO .7 pm Qty: 30 6RF Rx Instructions: Take one tablet at 7 pm propranolol 10 mg tablet 10 mg PO BID Qty: 60 6RF Rx Instructions: Take one tablet twice per day, morning and evening paroxetine HCl 20 mg tablet 20 mg PO .6 pm Qty: 30 6RF Rx Instructions: Take one tablet at 6 pm Nexplanon 68 mg implant 1 implant subdermal Q36M acetaminophen [Tylenol Extra Strength] 500 mg Tablet 1,000 mg PO QID PRN (Reason: Pain) Discharge Orders: Discharge ED (Routine); Ordered 10/10/24 Ordered By: Tristan Velazquez Referrals: Diana Brooks PA [Primary Care Provider] - Patient Instructions: Opioid Safety, Pain Management Activity Restrictions/Additional Instructions: Follow-up with your dentist as soon as possible. Call today for an appointment in the next 1 to 2 days. Follow-up with your primary care physician including on your test results. Please come back if you develop fever, increased pain or swelling in your back or abdomen or face, swelling of your face anterior neck or under your tongue, difficulty swallowing, any worse or concerns. Please make sure to drink plenty of fluids. Coding Level of Care Code ED Financial Accounting Analyst for Ed Byers
[2024-10-10] MEDS: HYDROcodone-acetaminophen 5-325 mg Tablet 2 TAB PO (07:54)
[2024-10-10] MEDS: amoxicillin 500 mg Capsule 1000 MG PO (07:54)
[2024-10-10 08:30] VITALS: BP 138/70; PULSE 85; RESP 17; O2SAT 98
== END 2024-10-10 08:32 | disposition home or self-care (01) ==
PROVIDERS: Emergency Medicine; Emergency Provider Emergency Medicine; PCP Physician Assistant
DX: K08.89 Other specified disorders of teeth and supporting structures (principal); N30.00 Acute cystitis without hematuria
CPT/HCPCS: 12345; 81001; 87086; 99285

== ENCOUNTER 2024-10-19 00:03 | Emergency (ER) | payer MEDICAID, SELFPAY ==
[2024-10-19 00:09] VITALS: BP 116/76; PULSE 96; RESP 16; TEMP 36.8; O2SAT 98; BMI 37.9
[2024-10-19 00:44] LABS: Bilirubin Urine Negative (Negative); Blood Urine 2+ (Negative); Glucose Urine UA Negative (Normal); Ketones Urine Negative (Negative); Leukocyte Esterase Urine 1+ (Negative); Nitrate Urine Negative (Negative); Protein Urine Trace (Negative); Specific Gravity, Urine 1.026 (1.005-1.030); Urine Appearance Cloudy (CLEAR); Urine Color Yellow (Yellow); pH Urine 6.5 (5-7)
[2024-10-19 00:48] LABS: Bacteria Urine None Seen /hpf; Hyaline Casts Urine 2.46 /lpf; RBC Urine >100 /hpf (0-2); WBC Urine 21-50 /hpf (0-5)
[2024-10-19 00:49] LABS: Add Urine Culture? Yes
--- NOTE | 2024-10-19 01:00 | W.ED.ABDPA2 ---
HPI - Abdominal Pain General: Chief Complaint: Abdominal Pain Stated Complaint: L back pain, Pressure on bladder,diarria Time Seen by Provider: 10/19/24 00:59 History of Present Illness: Patient presents with acute right-sided abdominal and back pain that began yesterday. Patient rates pain intensity as 9/10, localized to the right side. Associated symptoms include diarrhea and urinary symptoms (bladder pressure and persistent discomfort after voiding). Patient denies fever. Urinary output appears normal in color without visible hematuria. Patient denies current . Past medical history includes possible kidney infection, though patient indicates current symptoms feel different. No history of kidney stones. Associated Symptoms: Reports dysuria; Denies chills, fever(s) and hematuria Related Data Home Medications Medication Instructions Recorded Confirmed etonogestrel 68 mg subdermal 1 implant subdermal Q36M 08/26/24 10/10/24 implant (Nexplanon) acetaminophen 500 mg tablet 1,000 mg PO QID PRN Pain 10/10/24 10/10/24 (Tylenol Extra Strength) Previous Rx's Medication Instructions Recorded paroxetine HCl 20 mg tablet 20 mg PO .6 pm #30 tabs 08/08/24 propranolol 10 mg tablet 10 mg PO BID #60 tabs 08/08/24 quetiapine 150 mg tablet,extended 150 mg PO .7 pm #30 tabs 08/08/24 release 24 hr (Seroquel XR) topiramate 25 mg tablet (Topamax) 25 mg PO .noon #30 tabs 08/08/24 amoxicillin 500 mg capsule 500 mg PO TID 10 days #30 caps 10/10/24 cephalexin 500 mg capsule 500 mg PO Q8H 7 days #21 caps 10/19/24 Allergies Allergy/AdvReac Type Severity Reaction Status Date / Time phenazopyridine Allergy unknown Verified 10/19/24 00:14 Review of Systems General: Reports: 10 or more systems reviewed and unremarkable except in HPI and below Const: Denies: fever(s) or chills : Reports: flank pain, difficulty voiding and dysuria; Denies: hematuria, vaginal bleeding or vaginal discharge PFSH ED PFSH: Medical History Psychiatric care Psychiatric care Ringworm of body Unspecified asthma, uncomplicated Moderate intellectual disabilities Generalized anxiety disorder Chronic post-traumatic stress disorder Major depressive disorder, recurrent episode, moderate with anxious distress Surgical History No pertinent past surgical history Social History Smoking and tobacco/nicotine status: never used tobacco/nicotine Second hand smoke exposure: Yes Alcohol intake: never Substance/Drug Use: never Adopted: No Caregiver/support person: Yes Lives independently: No Household members: family Marital status: Single service: No Current occupational status: disabled Current gender identity: Female Physical Exam Const: COMMON NORMALS: no acute distress, patient oriented x3 and alert HENMT: COMMON NORMALS: normocephalic HEAD & SCALP: normocephalic Eye: COMMON NORMALS: conjunctivae normal CONJUNCTIVA: Yes conjunctivae normal Neck/C-Spine: COMMON NORMALS: full ROM, no lymphadenopathy, supple and Thyroid normal THYROID: Thyroid normal Resp: COMMON NORMALS: normal respiratory effort, No retractions, No use of accessory muscles and clear to auscultation bilaterally AUSCULTATION: clear to auscultation bilaterally GI: COMMON NORMALS: Normal to inspection, nondistended, normoactive bowel sounds present, Soft to palpation, non-tender and no masses PALPATION: Yes Soft to palpation : COMMON NORMALS: Yes no CVA tenderness BLADDER/KIDNEY EXAM: Yes no CVA tenderness Back/Pelvis: COMMON NORMALS: no CVA tenderness Extremity: COMMON NORMALS: normal to inspection, full ROM, capillary refill normal, no joint enlargement, no clubbing, cyanosis or edema, no calf tenderness and no pedal edema Neuro: COMMON NORMALS: patient oriented x3 SENSORIUM/ORIENTATION: Yes alert Skin: COMMON NORMALS: no rashes or lesions noted, turgor normal and no jaundice GENERAL SKIN EXAM: no rashes or lesions noted and turgor normal Course ED course: Patient and left flank pain and dysuria found to have urinalysis that had red blood in white blood cells and it but there was no stone identified. Patient was treated for pyelonephritis and released with return precautions follow-up instructions. Vital Signs: Vital signs: Vital Signs Temperature 98.3 F 10/19/24 00:09 Pulse Rate 68 10/19/24 02:07 Respiratory Rate 16 10/19/24 02:07 Blood Pressure 116/76 10/19/24 00:09 Pulse Oximetry 98 10/19/24 02:07 Oxygen Delivery Me thod Room Air 10/19/24 00:09 MDM - Abdominal Pain Medical Decision Making Discussed differential diagnosis includes pyelonephritis, ureteolithiasis, among others. Recommend urinalysis routine blood work CT scan and administration of Toradol. Lab Data 10/19/24 01:25 10/19/24 01:25 Labs/Radiology: Radiology Impressions Abdomen/Pelvis CT 10/19/24 01:10 IMPRESSION: No acute abnormality. Laboratory Results WBC 10.75 10^3/uL (3.29-11.43) 10/19/24 01: RBC 4.88 10^6/uL (3.85-5.65) 10/19/24: Hgb 13.10 g/dL (11.27-16.99) 10/19/24 01:25 Hct 42.4 % (36-47) 10/19/24: MCV 86.9 fl (85-98) 10/19/24: MCH 26.8 pg (27-33) L 10/19/24 01:25 MCHC 30.9 g/dL (30-55) 10/19/24: RDW 14.2 % (12.1-15.1) 10/19/24:25 Plt Count 440 10^3/cmm (157-399) H 10/19/24 01:25 MPV 10.6 fL (7.4-10.4) H 10/19/24 01: Neut % (Auto) 69.1 % 10/19/24 01:25 Lymph % (Auto) 21.3 % 10/19/24 01:25 [place] % (Auto) 5.0 % 10/19/24 01:25 Eos % (Auto) 3.5 % 10/19/24: Baso % (Auto) 0.7 % 10/19/24: Neut # (Auto) 7.42 10^3/uL (1.8-7.7) 10/19/24 01:25 Lymph # (Auto) 2.3 10^3/uL (0.8-4.8) 10/19/24:25 [place] # (Auto) 0.5 10^3/uL (0.2-0.9) 10/19/24 01:25 Eos # (Auto) 0.4 10^3/uL (0.0-0.8) 10/19/24 01:25 Baso # (Auto) 0.1 10^3/uL (0.0-0.1) 10/19/24 01:25 Nucleated RBC % (auto) 0 % 10/19/24 01:25 Nucleated RBCs # 0.0 /100WBC 10/19/24 01:25 Sodium 135 mmol/L (136-145) L 10/19/24 01:25 Potassium 3.6 mmol/L (3.5-5.1) 10/19/24 01:25 Chloride 100 mmol/L (98-107) 10/19/24 01:25 Carbon Dioxide 20 mmol/L (22-29) L 10/19/24 01:25 Anion Gap 18.6 (5-19) 10/19/24 01:25 BUN 15 mg/dL (6-20) 10/19/24 01:25 Creatinine 1.0 mg/dL (0.5-0.9) H 10/19/24 01:25 GFR Calculation 66.5 mL/min (90-130) L 10/19/24 01:25 Glucose 94 mg/dL (65-115) 10/19/24 01: Calculated Osmolality 281 mOsm/kg (285-295) L 10/19/24 01:25 Calcium 8.9 mg/dL (8.5-10.5) 10/19/24 01:25 HCG, Qual Negative (Negative) 10/19/24 00:20 Urine Color Yellow (Yellow) 10/19/24 00:20 Urine Appearance Cloudy (CLEAR) A 10/19/24 00:20 Urine pH 6.5 (5-7) 10/19/24 00:20 Ur Specific [place] 1.026 (1.005-1.030) 10/19/24 00:20 Urine Protein Trace (Negative) A 10/19/24 00:20 Urine Glucose (UA) Negative (Normal) 10/19/24 00:20 Urine Ketones Negative (Negative) 10/19/24 00:20 Urine Blood 2+ (Negative) A 10/19/24 00:20 Urine Nitrate Negative (Negative) 10/19/24 00:20 Urine Bilirubin Negative (Negative) 10/19/24 00:20 Urine Urobilinogen 1.0 mg/dL (Negative) 10/19/24 00:20 Ur Leukocyte Esterase 1+ (Negative) A 10/19/24 00:20 Urine RBC >100 /hpf (0-2) H 10/19/24 00:20 Urine WBC 21-50 /hpf (0-5) H 10/19/24 00:20 Ur Squamous Epith Cells 6-10 /hpf (0-5) 10/19/24 00:20 Amorphous Sediment Not Reportable 10/19/24 00:20 Urine Bacteria None seen /hpf (NONE) 10/19/24 00:20 Hyaline Casts 2.46 /lpf 10/19/24 00:20 All radiology interpretation(s) finalized by discharge Discharge Plan Discharge Patient Disposition: Home Clinical Impression: Pyelonephritis Condition: Stable Prescriptions: New cephalexin 500 mg capsule 500 mg PO Q8H 7 Days Qty: 21 0RF No Action topiramate [Topamax] 25 mg tablet 25 mg PO .noon Qty: 30 6RF Rx Instructions: Take one tablet at noon quetiapine [Seroquel XR] 150 mg tablet extended release 24 hr 150 mg PO .7 pm Qty: 30 6RF Rx Instructions: Take one tablet at 7 pm propranolol 10 mg tablet 10 mg PO BID Qty: 60 6RF Rx Instructions: Take one tablet twice per day, morning and evening paroxetine HCl 20 mg tablet 20 mg PO .6 pm Qty: 30 6RF Rx Instructions: Take one tablet at 6 pm Nexplanon 68 mg implant 1 implant subdermal Q36M amoxicillin 500 mg capsule 500 mg PO TID 10 Days Qty: 30 0RF acetaminophen [Tylenol Extra Strength] 500 mg Tablet 1,000 mg PO QID PRN (Reason: Pain) Discharge Orders: Discharge ED (Routine); Ordered 10/19/24 Ordered By: Shayan Hatfield Referrals: Diana Brooks PA [Primary Care Provider] - Discharge Diet: Advance as tolerated Discharge Activity: Resume usual activity Patient Instructions: Opioid Safety, Pain Management Coding Level of Care Code ED Reverse Logistics Analyst for Ed Byers
[2024-10-19 01:09] LABS: HCG Qualitative Urine. Negative (Negative)
--- NOTE | 2024-10-19 01:10 | CTR_ITS ---
PROCEDURE INFORMATION: Exam: CT Abdomen And Pelvis Without Contrast Exam date and time: 10/19/2024 1:28 AM Age: 29 years old Clinical indication: Abdominal pain; Right; Patient HX: C/O RT flank/rlq pain. ; Additional info: Unspecified abdominal pain - rule out stone TECHNIQUE: Imaging protocol: Computed tomography of the abdomen and pelvis without contrast. Radiation optimization: All CT scans at this facility use at least one of these dose optimization techniques: automated exposure control; mA and/or kV adjustment per patient size (includes targeted exams where dose is matched to clinical indication); or iterative reconstruction. COMPARISON: CT abdomen pelvis w con* [id number] 09/08/2024 7:31 AM RADIATION DOSE METRICS: Total DLP (mGy-cm): 962.43 FINDINGS: Liver: Normal. No mass. Gallbladder and biliary ducts: Normal. No calcified stones. No ductal dilation. Pancreas: Normal. No ductal dilation. Spleen: Normal. No splenomegaly. Adrenal glands: Normal. No mass. Kidneys and ureters: There are no renal stones, hydronephrosis or hydroureter. No ureteral stones. Stomach and bowel: Scattered colon diverticula. No inflammatory change identified involving the GI tract. No signs of bowel obstruction. Appendix: No evidence of appendicitis. Intraperitoneal space: Unremarkable. No free air. No significant fluid collection. Vasculature: Unremarkable. No abdominal aortic aneurysm. Lymph nodes: Unremarkable. No enlarged lymph nodes. Urinary bladder: Unremarkable as visualized. 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 Bones/joints: Unremarkable. No acute fracture. Soft tissues: Unremarkable. CT/CT kidney stone [id number] IMPRESSION: No acute abnormality.
[2024-10-19 01:36] LABS: Basophils # 0.1 10^3/uL (0.0-0.1); Basophils % 0.7 %; Eosinophils # 0.4 10^3/uL (0.0-0.8); Eosinophils % 3.5 %; Hematocrit 42.4 % (36-47); Lymphocytes # 2.3 10^3/uL (0.8-4.8); Lymphocytes % 21.3 %; Mean Corpuscular HGB Conc 30.9 g/dL (30-55); Mean Corpuscular Hemoglobin 26.8 pg (27-33); Mean Corpuscular Volume 86.9 fl (85-98); Mean Platelet Volume 10.6 fL (7.4-10.4); Monocytes # 0.5 10^3/uL (0.2-0.9); Neutrophils # 7.42 10^3/uL (1.8-7.7); Neutrophils % 69.1 %; Nucleated Red Blood Cells % 0 %; Platelet Count 440 10^3/cmm (157-399); Red Blood Count 4.88 10^6/uL (3.85-5.65); Red Cell Distribution Width 14.2 % (12.1-15.1); White Blood Count 10.75 10^3/uL (3.29-11.43)
[2024-10-19 01:59] LABS: Anion Gap 18.6 (5-19); Blood Urea Nitrogen 15 mg/dL (6-20); Calcium 8.9 mg/dL (8.5-10.5); Carbon Dioxide 20 mmol/L (22-29); Chloride 100 mmol/L (98-107); Creatinine Clr Calc Pharmacy 93.7389; Glomerular Filtration Rate 66.5 mL/min (90-130); Glucose 94 mg/dL (65-115); Osmolality Calculated 281 mOsm/kg (285-295); Potassium 3.6 mmol/L (3.5-5.1); Sodium 135 mmol/L (136-145)
[2024-10-19] MEDS: sodium chloride 0.9% 1,000 ML 999 ML IV (02:03)
[2024-10-19] MEDS: ketorolac 30 mg/mL INJ 15 MG IVP (02:03)
[2024-10-19 02:07] VITALS: PULSE 68; RESP 16; O2SAT 98
[2024-10-19] MEDS: cefTRIAXone 1,000 mg SDV 1000 MG IVP (02:32)
== END 2024-10-19 03:35 | disposition home or self-care (01) ==
PROVIDERS: Emergency Provider Family Medicine; PCP Physician Assistant
DX: N12 Tubulo-interstitial nephritis, not specified as acute or chronic (principal)
CPT/HCPCS: 74176; 80048; 81001; 81025; 85025; 87086; 96374; 96375; 99285; J0696; J1885; J7030

== ENCOUNTER 2024-10-20 09:18 | Emergency (ER) | payer MEDICAID, SELFPAY ==
[2024-10-20 09:29] VITALS: BP 144/103; PULSE 77; RESP 16; TEMP 36.7; O2SAT 98; BMI 31.8
[2024-10-20 10:10] LABS: Bilirubin Urine Negative (Negative); Blood Urine 1+ (Negative); Glucose Urine UA Negative (Normal); Ketones Urine Trace (Negative); Leukocyte Esterase Urine Negative (Negative); Nitrate Urine Negative (Negative); Protein Urine 1+ (Negative); Urine Appearance Cloudy (CLEAR); Urine Color Yellow (Yellow)
[2024-10-20 10:15] LABS: Add Urine Microscopic? YES; Bacteria Urine None Seen /hpf; Hyaline Casts Urine 0.81 /lpf; RBC Urine 21-50 /hpf (0-2)
[2024-10-20 10:17] LABS: Specific Gravity, Urine 1.041 (1.005-1.030)
--- NOTE | 2024-10-20 11:03 | XRR_ITS ---
PROCEDURE INFORMATION: Exam: XR Abdomen Exam date and time: 10/20/2024 11:32 AM Age: 29 years old Clinical indication: Abdominal pain; Patient HX: Abdomen pain; RT flank pain; Painful urination TECHNIQUE: Imaging protocol: Radiologic exam of the abdomen. Views: 2 Views. Upright and supine views. COMPARISON: CT kidney stone [id number] 10/19/2024 1:28 AM FINDINGS: Gastrointestinal tract: Normal. No bowel dilation. Intraperitoneal space: Normal. No free air. Organs: No focal hyperdense focus noted at the bilateral renal shadows. Bones/joints: Hypoplastic T12 ribs. XR/XR abdomen min 2V [id number] IMPRESSION: No radiographic evidence of nephrolithiasis.
[2024-10-20] MEDS: ondansetron 4 MG Tablet 8 MG PO (11:25)
[2024-10-20] MEDS: HYDROmorphone 1 mg/mL INJ 1 mL 0.5 MG IM (11:26)
[2024-10-20 12:01] VITALS: BP 129/88; PULSE 56; O2SAT 97
--- NOTE | 2024-10-20 12:27 | W.ED.ABDPA2 ---
HPI - Abdominal Pain General: Chief Complaint: Abdominal Pain Stated Complaint: n/v Time Seen by Provider: 10/20/24 09:36 History of Present Illness: 29-year-old female presents emergency department with intermittent generalized abdominal pain. She also has some right lumbar pain. Currently, most of her pain is in the right half of her abdomen. It fluctuates in intensity. She thinks her last bowel movement was in the last 24 hours. She does not remember any diarrhea, blood, mucus, or significant straining. Concerning her right lumbar pain it hurts to push on the right lumbar area and it also hurts to move and change positions. No radicular symptoms. She reports when the pain in her belly gets higher, she also feels nauseated but has not vomited. Patient does have Nexplanon. LMP unknown. No vaginal bleeding reported. No symptoms. Related Data Home Medications Medication Instructions Recorded Confirmed etonogestrel 68 mg subdermal 1 implant subdermal Q36M 08/26/24 10/20/24 implant (Nexplanon) acetaminophen 500 mg tablet 1,000 mg PO QID PRN Pain 10/10/24 10/20/24 (Tylenol Extra Strength) Previous Rx's Medication Instructions Recorded paroxetine HCl 20 mg tablet 20 mg PO .6 pm #30 tabs 08/08/24 propranolol 10 mg tablet 10 mg PO BID #60 tabs 08/08/24 quetiapine 150 mg tablet,extended 150 mg PO .7 pm #30 tabs 08/08/24 release 24 hr (Seroquel XR) topiramate 25 mg tablet (Topamax) 25 mg PO .noon #30 tabs 08/08/24 glycerin (adult) 1 supp MD Q8H PRN constipation 5 10/20/24 days #12 ea ondansetron 4 mg disintegrating 4 mg PO Q6H PRN nausea and 10/20/24 tablet vomiting #14 tabs sennosides 8.6 mg-docusate sodium 1 tab-cap PO BID PRN constipation 10/20/24 50 mg tablet (Senna with Docusate #14 tabs Sodium) Allergies Allergy/AdvReac Type Severity Reaction Status Date / Time phenazopyridine Allergy unknown Verified 10/19/24 00:14 Review of Systems General: Reports: 10 or more systems reviewed and unremarkable except in HPI and below Narrative: Patient does have moderate intellectual disability which somewhat limits the history. PFSH ED PFSH: Medical History Psychiatric care Psychiatric care Ringworm of body Unspecified asthma, uncomplicated Moderate intellectual disabilities Generalized anxiety disorder Chronic post-traumatic stress disorder Major depressive disorder, recurrent episode, moderate with anxious distress Surgical History No pertinent past surgical history Social History Smoking and tobacco/nicotine status: never used tobacco/nicotine Second hand smoke exposure: Yes Alcohol intake: never Substance/Drug Use: never Adopted: No Caregiver/support person: Yes Lives independently: No Household members: family Marital status: Single service: No Current occupational status: disabled Current gender identity: Female Physical Exam Narrative: EXAM NARRATIVE: Patient has reproducible right lumbar paraspinal soft tissue tenderness. There is no overlying erythema. No induration. No masses. It is not in her sacroiliac joint or in the midline. She does not have right CVA discomfort with firm percussion. This is consistent with myofascial tenderness of the right lumbar region. Straight leg raise is negative bilaterally. The patient's lower extremities are neuro intact. The patient's abdomen is slightly distended but soft. She has decreased bowel sounds. She has dullness to percussion everywhere except for directly over the left upper quadrant stomach bubble. There is no focal tenderness although she reports mild generalized discomfort with deep palpation. Const: COMMON NORMALS: no limitations, alert and well nourished EXAM LIMITATIONS: no altered mental status HENMT: COMMON NORMALS: normocephalic, atraumatic and external ears normal HEAD & SCALP: normocephalic and atraumatic EXTERNAL EAR: Yes external ears normal MOUTH: no muffled voice Eye: COMMON NORMALS: EOMs intact bilaterally, conjunctivae normal and no scleral icterus CONJUNCTIVA: Yes conjunctivae normal Neck/C-Spine: COMMON NORMALS: no JVD GENERAL: Yes normal visual inspection and Yes trachea midline Resp: COMMON NORMALS: normal respiratory effort, No use of accessory muscles and clear to auscultation bilaterally AUSCULTATION: clear to auscultation bilaterally Cardio: COMMON NORMALS: no JVD, regular rate and regular rhythm RATE: regular rate RHYTHM: regular rhythm Extremity: COMMON NORMALS: normal to inspection Neuro: COMMON NORMALS: moves all extremities, no focal motor deficits and no sensory deficits noted SENSORIUM/ORIENTATION: Yes alert Skin: COMMON NORMALS: no rashes or lesions noted, turgor normal and no jaundice GENERAL SKIN EXAM: no rashes or lesions noted and turgor normal Course Vital Signs: Vital signs: Vital Signs Temperature 98.1 F 10/20/24 09:29 Pulse Rate 56 L 10/20/24 12:01 Respiratory Rate 16 10/20/24 09:29 Blood Pressure 129/88 10/20/24 12:01 Pulse Oximetry 97 10/20/24 12:01 Oxygen Delivery Me thod Room Air 10/20/24 09:29 MDM - Abdominal Pain Medical Decision Making Patient has been seen recently for similar complaints. A CT scan of the abdomen and pelvis was done 2 days ago and I reviewed the images as well as the report. I also reviewed her laboratory findings and urine findings. Today she has reproducible right lumbar myofascial tenderness. I do not think this is related to her abdominal pain. She does not have any trauma or red flags on history or exam. It is reproducible with repositioning as well. No radicular symptoms or signs. This can be treated conservatively. The patient's abdomen is soft, mildly distended, dull to percussion. Her intermittent abdominal pain which is generalized along with nausea suggest to me that she may have constipation. An x-ray of her abdomen 2 views was obtained. I have reviewed the images. On EP interpretation there is significant stool burden including the right colon, fluid in the small bowel, and visualized pockets of stool going through the distal transverse colon. Not consistent with bowel obstruction. Suspect this is the cause of her symptoms. We are going to treat with glycerin suppositories, Zofran, and senna with docusate sodium. Explained to patient and her mother the treatment plan and return precautions. The last 3 urine analysis and urine cultures have been reviewed. Although they are chronically abnormal, it is always mixed genitourinary wale and not a true urinary tract infection. She is tried amoxicillin for twice and it does not resolve her abnormal urinalysis nor symptoms. No further treatment at this time. Urine culture has been sent as a precaution for follow-up. Lab Data Labs/Radiology: Radiology Impressions Abdomen X-Ray 10/20/24 11:03 IMPRESSION: No radiographic evidence of nephrolithiasis. Laboratory Results Urine Color Yellow (Yellow) 10/20/24 10:00 Urine Appearance Cloudy (CLEAR) A 10/20/24 10:00 Urine pH 5.0 (5-7) 10/20/24 10:00 Ur Specific [place] 1.041 (1.005-1.030) H 10/20/24 10:00 Urine Protein 1+ (Negative) A 10/20/24 10:00 Urine Glucose (UA) Negative (Normal) 10/20/24 10:00 Urine Ketones Trace (Negative) 10/20/24 10:00 Urine Blood 1+ (Negative) A 10/20/24 10:00 Urine Nitrate Negative (Negative) 10/20/24 10:00 Urine Bilirubin Negative (Negative) 10/20/24 10:00 Urine Urobilinogen 1.0 mg/dL (Negative) 10/20/24 10:00 Ur Leukocyte Esterase Negative (Negative) 10/20/24 10:00 Urine RBC 21-50 /hpf (0-2) H 10/20/24 10:00 Urine WBC 11-20 /hpf (0-5) H 10/20/24 10:00 Ur Squamous Epith Cells 11-20 /hpf (0-5) H 10/20/24 10:00 Amorphous Sediment Not Reportable 10/20/24 10:00 Urine Bacteria None seen /hpf (NONE) 10/20/24 10:00 Hyaline Casts 0.81 /lpf 10/20/24 10:00 All radiology interpretation(s) finalized by discharge Discharge Plan Discharge Patient Disposition: Home Clinical Impression: Constipation, Generalized abdominal cramping, Right lumbar pain Condition: Stable Prescriptions: New glycerin (adult) Suppository 1 supp MD Q8H PRN (Reason: constipation) 5 Days Qty: 12 0RF sennosides-docusate sodium [Senna with Docusate Sodium] 8.6-50 mg tablet 1 tab-cap PO BID PRN (Reason: constipation) Qty: 14 0RF ondansetron 4 mg tablet,disintegrating 4 mg PO Q6H PRN (Reason: nausea and vomiting) Qty: 14 0RF Discontinued amoxicillin 500 mg capsule 500 mg PO TID cephalexin 500 mg capsule 500 mg PO Q8H 7 Days Qty: 21 0RF No Action topiramate [Topamax] 25 mg tablet 25 mg PO .noon Qty: 30 6RF quetiapine [Seroquel XR] 150 mg tablet extended release 24 hr 150 mg PO .7 pm Qty: 30 6RF propranolol 10 mg tablet 10 mg PO BID Qty: 60 6RF paroxetine HCl 20 mg tablet 20 mg PO .6 pm Qty: 30 6RF Nexplanon 68 mg implant 1 implant subdermal Q36M acetaminophen [Tylenol Extra Strength] 500 mg Tablet 1,000 mg PO QID PRN (Reason: Pain) Discharge Orders: Discharge ED (Routine); Ordered 10/20/24 Ordered By: Ld Downey Referrals: Diana Brooks PA [Primary Care Provider] - 4-7 days (gen abd pain with nausea and fecal retention on xray; treating for constipation) Discharge Diet: Advance as tolerated Patient Instructions: Constipation (ED), Abdominal Pain (ED) Activity Restrictions/Additional Instructions: Use glycerin suppository every 8 hours as needed for constipation (make sure you are having at least one moderate to large bowel movement daily). You can also use the senna-colace pill to help you do a bowel cleanout. Return to the emergency department if you have severe abdominal pain, cannot stop vomiting, fever, or localized abdominal pain in 1 particular area that will not go away. Please see discharge handouts labeled abdominal pain and constipation for more details and return precautions. Coding Level of Care Code ED Workforce Staffing Advisor for Ed Byers
[2024-10-20 12:44] VITALS: BP 129/82; PULSE 56; O2SAT 97
== END 2024-10-20 12:45 | disposition home or self-care (01) ==
PROVIDERS: Emergency Provider Emergency Medicine; PCP Physician Assistant
DX: K59.00 Constipation, unspecified (principal); M54.50 Low back pain, unspecified
CPT/HCPCS: 74019; 81001; 96372; 99284; J1171; Q0162

== ENCOUNTER 2025-02-10 08:19 | Emergency (ER) | payer MEDICAID, SELFPAY ==
[2025-02-10 08:44] VITALS: BP 105/73; PULSE 81; RESP 18; TEMP 36.7; O2SAT 98
--- NOTE | 2025-02-10 09:57 | W.ED.DENTAL ---
HPI - Dental/Oral General: Chief complaint: Dental/Oral Stated complaint: Left side Face pain Time Seen by Provider: 02/10/25 09:52 Source: patient Mode of arrival: ambulatory Limitations: no limitations History of Present Illness: 29-year-old female who states that she has had left sided dental pain over the last few days. She states she has a dentist appointment in a few weeks was had some slight swelling to the left side of her jaw she denies any trismus. She does have a history of poor dentition. She states she also had some slight burning with urination denies any abdominal pain or vomiting Associated symptoms: Denies fever(s) Related Data Home Medications ?Medication ?Instructions ?Recorded ?Confirmed etonogestrel 68 mg subdermal 1 implant subdermal Q36M 08/26/24 12/06/24 implant (Nexplanon) acetaminophen 500 mg tablet 1,000 mg PO QID PRN Pain 10/10/24 12/06/24 (Tylenol Extra Strength) Previous Rx's ?Medication ?Instructions ?Recorded ondansetron 4 mg disintegrating 4 mg PO Q6H PRN nausea and 10/20/24 tablet vomiting #14 tabs sennosides 8.6 mg-docusate sodium 1 tab-cap PO BID PRN constipation 10/20/24 50 mg tablet (Senna with Docusate #14 tabs Sodium) paroxetine HCl 20 mg tablet 20 mg PO .6 pm #30 tabs 10/29/24 propranolol 10 mg tablet 10 mg PO BID #60 tabs 10/29/24 quetiapine 150 mg tablet,extended 150 mg PO .7 pm #30 tabs 10/29/24 release 24 hr (Seroquel XR) topiramate 25 mg tablet (Topamax) 25 mg PO .noon #30 tabs 10/29/24 amoxicillin 500 mg capsule 500 mg PO TID #30 caps 12/06/24 cephalexin 500 mg capsule 500 mg PO TID 7 days #21 caps 02/10/25 Allergies Allergy/AdvReac Type Severity Reaction Status Date / Time phenazopyridine Allergy unknown Verified 12/06/24 17:19 Review of Systems Const: Denies: fever(s), chills, body aches or change in appetite ENMT: Reports: dental pain; Denies: throat pain Card: Denies: chest pain Resp: Denies: dyspnea GI: Denies: abdominal pain, nausea, vomiting or diarrhea : Reports: dysuria Musc: Denies: neck pain or back pain Skin/Breast: Denies: rash Neuro: Denies: headache(s) PFSH ED PFSH: Medical History Psychiatric care Psychiatric care Ringworm of body Unspecified asthma, uncomplicated Moderate intellectual disabilities Generalized anxiety disorder Chronic post-traumatic stress disorder Major depressive disorder, recurrent episode, moderate with anxious distress Surgical History No pertinent past surgical history Social History Smoking and tobacco/nicotine status: never used tobacco/nicotine Second hand smoke exposure: Yes Alcohol intake: never Substance/Drug Use: never Adopted: No Caregiver/support person: Yes Lives independently: No Household members: family Marital status: Single service: No Current occupational status: disabled Current gender identity: Female Physical Exam Const: COMMON NORMALS: no acute distress, patient oriented x3 and healthy appearing HENMT: COMMON NORMALS: normocephalic and atraumatic HEAD & SCALP: normocephalic and atraumatic OTHER: Poor dentition has tenderness over left lower molar no abscess no trismus Eye: COMMON NORMALS: conjunctivae normal CONJUNCTIVA: Yes conjunctivae normal Neck/C-Spine: COMMON NORMALS: full ROM and supple Chest: COMMONS NORMALS: normal inspection of the chest Resp: COMMON NORMALS: normal respiratory effort Cardio: COMMON NORMALS: regular rate RATE: regular rate Extremity: COMMON NORMALS: normal to inspection and full ROM Neuro: COMMON NORMALS: patient oriented x3, moves all extremities and no focal motor deficits Psych: COMMON NORMALS: mental status grossly normal, Normal thought process present and cooperative THOUGHT PROCESS: Normal thought process present Skin: COMMON NORMALS: no rashes or lesions noted and no wounds GENERAL SKIN EXAM: no rashes or lesions noted Course Vital Signs: Vital signs: Vital Signs Temperature 98.1 F 02/10/25 08:44 Pulse Rate 81 02/10/25 08:44 Respiratory Rate 18 02/10/25 08:44 Blood Pressure 105/73 02/10/25 08:44 Pulse Oximetry 98 02/10/25 10:01 Oxygen Delivery Me thod Room Air 02/10/25 10:01 MDM - Dental/Oral Medical Decision Making Patient presents for dental pain no signs of abscess or trismus we will start her on Keflex she has follow-up with his dentist as scheduled return if worsening. Medical Records I reviewed the patient's medical records. Lab Data I reviewed the patient's lab results. Laboratory Results Urine Color Yellow (Yellow) 02/10/25 08:00 Urine Appearance Clear (CLEAR) 02/10/25 08:00 Urine pH 5.0 (5-7) 02/10/25 08:00 Ur Specific [place] 1.033 (1.005-1.030) H 02/10/25 08:00 Urine Protein Trace (Negative) A 02/10/25 08:00 Urine Glucose (UA) Negative (Normal) 02/10/25 08:00 Urine Ketones Trace (Negative) 02/10/25 08:00 Urine Blood Negative (Negative) 02/10/25 08:00 Urine Nitrate Negative (Negative) 02/10/25 08:00 Urine Bilirubin Negative (Negative) 02/10/25 08:00 Urine Urobilinogen 1.0 mg/dL (Negative) 02/10/25 08:00 Ur Leukocyte Esterase Trace (Negative) A 02/10/25 08:00 Urine RBC 0-2 /hpf (0-2) 02/10/25 08:00 Urine WBC 11-20 /hpf (0-5) H 02/10/25 08:00 Ur Squamous Epith Cells 0-5 /hpf (0-5) 02/10/25 08:00 Amorphous Sediment Not Reportable 02/10/25 08:00 Urine Bacteria None seen /hpf (NONE) 02/10/25 08:00 Hyaline Casts 0-4 /lpf H 02/10/25 08:00 No radiology studies performed this visit Discharge Plan Discharge Patient Disposition: Home Clinical Impression: Dental caries, Pain, dental Condition: Stable Prescriptions: New cephalexin 500 mg capsule 500 mg PO TID 7 Days Qty: 21 0RF No Action paroxetine HCl 20 mg tablet 20 mg PO .6 pm Qty: 30 6RF propranolol 10 mg tablet 10 mg PO BID Qty: 60 6RF quetiapine [Seroquel XR] 150 mg tablet extended release 24 hr 150 mg PO .7 pm Qty: 30 6RF topiramate [Topamax] 25 mg tablet 25 mg PO .noon Qty: 30 6RF amoxicillin 500 mg capsule 500 mg PO TID Qty: 30 0RF Nexplanon 68 mg implant 1 implant subdermal Q36M sennosides-docusate sodium [Senna with Docusate Sodium] 8.6-50 mg tablet 1 tab-cap PO BID PRN (Reason: constipation) Qty: 14 0RF ondansetron 4 mg tablet,disintegrating 4 mg PO Q6H PRN (Reason: nausea and vomiting) Qty: 14 0RF acetaminophen [Tylenol Extra Strength] 500 mg Tablet 1,000 mg PO QID PRN (Reason: Pain) Discharge Orders: Discharge ED (Routine); Ordered 02/10/25 Ordered By: Hernandez Mcgee Referrals: Diana Brooks PA [Primary Care Provider, [facility] [employer]] Discharge Diet: Advance as tolerated Discharge Activity: Resume usual activity Patient Instructions: Toothache (ED) Print Language: Bengali Coding Level of Care Code ED Carton Wrapper for Ed Byers
[2025-02-10 10:01] VITALS: O2SAT 98
[2025-02-10 10:28] LABS: Bilirubin Urine Negative (Negative); Blood Urine Negative (Negative); Glucose Urine UA Negative (Normal); Ketones Urine Trace (Negative); Leukocyte Esterase Urine Trace (Negative); Nitrate Urine Negative (Negative); Protein Urine Trace (Negative); Urine Appearance Clear (CLEAR); Urine Color Yellow (Yellow)
[2025-02-10 10:33] LABS: Add Urine Microscopic? YES; Bacteria Urine None Seen /hpf; Hyaline Casts Urine 0-4 /lpf; RBC Urine 0-2 /hpf (0-2); Squamous Epithelial Cell Urine 0-5 /hpf (0-5)
[2025-02-10 10:39] LABS: Specific Gravity, Urine 1.033 (1.005-1.030)
[2025-02-10 10:52] VITALS: BP 102/58; PULSE 88; O2SAT 98
== END 2025-02-10 10:56 | disposition home or self-care (01) ==
PROVIDERS: Emergency Provider Emergency Medicine; PCP Physician Assistant
DX: K08.89 Other specified disorders of teeth and supporting structures (principal); K02.9 Dental caries, unspecified
CPT/HCPCS: 81001; 99283

== ENCOUNTER 2025-02-27 09:39 | Emergency (ER) | payer MEDICAID, SELFPAY ==
[2025-02-27 09:44] VITALS: BP 105/71; PULSE 117; RESP 18; TEMP 36.9; O2SAT 98; BMI 39.2
--- NOTE | 2025-02-27 09:49 | W.ED.EAR ---
HPI - Ear Problem General: Chief complaint: Ear Stated complaint: Ear pain Time Seen by Provider: 02/27/25 09:46 History of Present Illness: 29-year-old female presents emergency room with drainage from the right ear. Patient has some pain as well low-grade fever. This been going on for the last 4 days she has had slight bloody drainage. No cough or shortness of breath Associated symptoms: Reports ear or mastoid pain; Denies fever(s) or neck pain Related Data Home Medications ?Medication ?Instructions ?Recorded ?Confirmed etonogestrel 68 mg subdermal 1 implant subdermal Q36M 08/26/24 02/19/25 implant (Nexplanon) acetaminophen 500 mg tablet 1,000 mg PO QID PRN Pain 10/10/24 02/19/25 (Tylenol Extra Strength) Previous Rx's ?Medication ?Instructions ?Recorded ondansetron 4 mg disintegrating 4 mg PO Q6H PRN nausea and 10/20/24 tablet vomiting #14 tabs sennosides 8.6 mg-docusate sodium 1 tab-cap PO BID PRN constipation 10/20/24 50 mg tablet (Senna with Docusate #14 tabs Sodium) propranolol 10 mg tablet 10 mg PO BID #60 tabs 10/29/24 quetiapine 150 mg tablet,extended 150 mg PO .7 pm #30 tabs 10/29/24 release 24 hr (Seroquel XR) topiramate 25 mg tablet (Topamax) 25 mg PO .noon #30 tabs 10/29/24 paroxetine HCl 30 mg tablet 30 mg PO .6 pm #30 tabs 02/19/25 amoxicillin 875 mg tablet 875 mg PO BID #20 tabs 02/27/25 [id number] 3.3 5 drp otic (ear) QID 7 days #10 mL 02/27/25 mg-3 mg-10 mg-0.5 mg/mL ear drops,susp (Cortisporin-TC) Allergies Allergy/AdvReac Type Severity Reaction Status Date / Time phenazopyridine Allergy unknown Verified 02/19/25 13:16 Review of Systems Const: Denies: fever(s) or chills ENMT: Reports: ear or mastoid pain and ear discharge Card: Denies: chest pain Resp: Denies: dyspnea GI: Denies: abdominal pain : Denies: dysuria, urinary frequency or urinary urgency Musc: Reports: back pain; Denies: neck pain Skin/Breast: Denies: rash PFSH ED PFSH: Medical History Psychiatric care Psychiatric care Ringworm of body Unspecified asthma, uncomplicated Moderate intellectual disabilities Generalized anxiety disorder Chronic post-traumatic stress disorder Major depressive disorder, recurrent episode, moderate with anxious distress Surgical History No pertinent past surgical history Social History Smoking and tobacco/nicotine status: never used tobacco/nicotine Second hand smoke exposure: Yes Alcohol intake: never Substance/Drug Use: never Adopted: No Caregiver/support person: Yes Lives independently: No Household members: family Marital status: Single service: No Current occupational status: disabled Current gender identity: Female Physical Exam Const: GENERAL APPEARANCE: cooperative and comfortable ORIENTATION/CONSCIOUSNESS: Yes awake, Yes oriented to person, Yes oriented to place and Yes oriented to time HENMT: COMMON NORMALS: normocephalic, atraumatic and hearing grossly normal bilaterally HEAD & SCALP: normocephalic and atraumatic OTHER: Drainage swelling of the external canal with some light purulent mucus mild redness to the tympanic membrane. Resp: COMMON NORMALS: normal respiratory effort, No retractions, No use of accessory muscles and clear to auscultation bilaterally AUSCULTATION: clear to auscultation bilaterally Cardio: COMMON NORMALS: regular rate, regular rhythm and No murmurs present (Cardio) RATE: regular rate RHYTHM: regular rhythm GI: COMMON NORMALS: Soft to palpation and No hepatosplenomegaly present AUSCULTATION: Yes normoactive bowel sounds PALPATION: Yes Soft to palpation, No Tenderness to palpation present (GI), No Guarding due to palpation present (GI) and Yes No hepatosplenomegaly present Extremity: COMMON NORMALS: normal to inspection, capillary refill normal, no clubbing, cyanosis or edema, no calf tenderness and no pedal edema Neuro: SENSORIUM/ORIENTATION: Yes oriented to person, Yes oriented to place and Yes oriented to time Skin: COMMON NORMALS: no rashes or lesions noted GENERAL SKIN EXAM: no rashes or lesions noted Course Vital Signs: Vital signs: Vital Signs Temperature 98.4 F 02/27/25 09:44 Pulse Rate 101 H 02/27/25 10:05 Respiratory Rate 18 02/27/25 09:44 Blood Pressure 107/69 02/27/25 10:05 Pulse Oximetry 96 02/27/25 10:05 Oxygen Delivery Me thod Room Air 02/27/25 09:44 MDM - Ear Medical Decision Making Right otitis media otitis externa. No perforation. Started on drops also started on oral antibiotics follow-up with primary care No radiology studies performed this visit Discharge Plan Discharge Patient Disposition: Home Clinical Impression: External otitis of right ear Right otitis media Qualifiers: Otitis media type: suppurative Chronicity: acute Recurrence: non-recurrent Spontaneous tympanic membrane rupture: without spontaneous rupture Qualified Code(s): H66.001 - Acute suppurative otitis media without spontaneous rupture of ear drum, right ear Condition: Stable Prescriptions: New amoxicillin 875 mg tablet 875 mg PO BID Qty: 20 0RF Cortisporin-TC 3.3-3-10-0.5 mg/mL drops,suspension 5 drp otic (ear) QID 7 Days Qty: 10 0RF No Action propranolol 10 mg tablet 10 mg PO BID Qty: 60 6RF quetiapine [Seroquel XR] 150 mg tablet extended release 24 hr 150 mg PO .7 pm Qty: 30 6RF topiramate [Topamax] 25 mg tablet 25 mg PO .noon Qty: 30 6RF paroxetine HCl 30 mg tablet 30 mg PO .6 pm Qty: 30 4RF Rx Instructions: Take one tablet at 6 pm Nexplanon 68 mg implant 1 implant subdermal Q36M sennosides-docusate sodium [Senna with Docusate Sodium] 8.6-50 mg tablet 1 tab-cap PO BID PRN (Reason: constipation) Qty: 14 0RF ondansetron 4 mg tablet,disintegrating 4 mg PO Q6H PRN (Reason: nausea and vomiting) Qty: 14 0RF acetaminophen [Tylenol Extra Strength] 500 mg Tablet 1,000 mg PO QID PRN (Reason: Pain) Discharge Orders: Discharge ED (Routine); Ordered 02/27/25 Ordered By: Jerson Duque Referrals: Diana Brooks PA [Primary Care Provider, Physicians Facility Assistant] Discharge Diet: Usual diet Discharge Activity: Increase activity as tolerated Patient Instructions: Otitis Externa - Adult, Otitis Media - Adult, Opioid Safety, Pain Management Activity Restrictions/Additional Instructions: Thank you for choosing [facility] for your healthcare needs today. It is very important that you follow up as instructed or that you return to the Emergency Department should you have concerns or if your condition changes or worsens in any way. You were seen in the emergency room with complaint of right ear pain. He had signs of a external and middle ear infections. You are given oral antibiotics for middle ear infection antibiotic drops for the external ear infection you should follow-up with your primary care doctor if not improving Print Language: Niuean Coding Level of Care Code ED Sign Manufacturer for Ed Byers
[2025-02-27 10:05] VITALS: BP 107/69; PULSE 101; O2SAT 96
== END 2025-02-27 10:07 | disposition home or self-care (01) ==
PROVIDERS: Emergency Provider Family Medicine; PCP Physician Assistant
DX: H66.001 Acute suppurative otitis media without spontaneous rupture of ear drum, right ear (principal)
CPT/HCPCS: 99283

== ENCOUNTER 2025-03-10 14:47 | Emergency (ER) | payer MEDICAID, SELFPAY ==
[2025-03-10 14:56] VITALS: BP 133/84; PULSE 91; RESP 17; TEMP 36.8; O2SAT 96; BMI 39.3
--- NOTE | 2025-03-10 16:03 | W.ED.GENADLT ---
HPI - General Adult General: Chief complaint: Back Pain/Injury Stated complaint: back pain Time Seen by Provider: 03/10/25 15:47 Source: patient and family (mother) Mode of arrival: ambulatory Limitations: no limitations History of Present Illness: Patient is a 29-year-old female presents to ED today along with her mother who is also being seen. Patient is here with various complaints. She states she is having lower back pain over the past 3 days or so. No known injury or trauma. Patient has been ambulatory without difficulty. She also has a complaint of an episode of diarrhea yesterday evening. She has not had any further episodes of diarrhea. She is not complaining of abdominal pain. She has not had any vomiting. She also has a complaint of dental pain to the socket of a left upper molar. She has not noticed any swelling to her face. No difficulty swallowing or breathing. Vital signs are normal. Onset (ago): day(s) Location: mouth and back Severity: mild Relieving factors: none Exacerbating factors: none Associated symptoms: Reports no associated symptoms; Deny chest pain, dyspnea, headache(s), malaise, nausea, rash or vomiting Treatments prior to arrival: none Related Data Home Medications ?Medication ?Instructions ?Recorded ?Confirmed etonogestrel 68 mg subdermal 1 implant subdermal Q36M 08/26/24 02/19/25 implant (Nexplanon) acetaminophen 500 mg tablet 1,000 mg PO QID PRN Pain 10/10/24 02/19/25 (Tylenol Extra Strength) Previous Rx's ?Medication ?Instructions ?Recorded ondansetron 4 mg disintegrating 4 mg PO Q6H PRN nausea and 10/20/24 tablet vomiting #14 tabs sennosides 8.6 mg-docusate sodium 1 tab-cap PO BID PRN constipation 10/20/24 50 mg tablet (Senna with Docusate #14 tabs Sodium) propranolol 10 mg tablet 10 mg PO BID #60 tabs 10/29/24 quetiapine 150 mg tablet,extended 150 mg PO .7 pm #30 tabs 10/29/24 release 24 hr (Seroquel XR) topiramate 25 mg tablet (Topamax) 25 mg PO .noon #30 tabs 10/29/24 paroxetine HCl 30 mg tablet 30 mg PO .6 pm #30 tabs 02/19/25 amoxicillin 875 mg tablet 875 mg PO BID #20 tabs 02/27/25 Allergies Allergy/AdvReac Type Severity Reaction Status Date / Time phenazopyridine Allergy unknown Verified 02/19/25 13:16 Review of Systems Const: Denies: fever(s), chills, body aches, fatigue or malaise Eyes: Denies: change in vision, blurry vision or photophobia ENMT: Reports: dental pain; Denies: throat pain, uvular edema, enlarged tonsils, odynophagia, nasal discharge, nasal congestion or sinus pain Card: Denies: chest pain Resp: Denies: dyspnea GI: Reports: diarrhea (x 1); Denies: abdominal pain, nausea, vomiting, GI cramping, hematochezia or melena : Denies: flank pain, difficulty voiding, dysuria, urinary frequency, urinary urgency or urinary hesitancy Musc: Reports: back pain; Denies: neck pain, extremity pain, extremity swelling, joint pain, joint swelling or joint redness Skin/Breast: Denies: rash Neuro: Denies: headache(s), numbness in extremities, weakness in extremities, sensory changes, frequent falls or dizziness PFSH ED PFSH: Medical History Psychiatric care Psychiatric care Ringworm of body Unspecified asthma, uncomplicated Moderate intellectual disabilities Generalized anxiety disorder Chronic post-traumatic stress disorder Major depressive disorder, recurrent episode, moderate with anxious distress Surgical History No pertinent past surgical history Social History Smoking and tobacco/nicotine status: never used tobacco/nicotine Second hand smoke exposure: Yes Alcohol intake: never Substance/Drug Use: never Adopted: No Caregiver/support person: Yes Lives independently: No Household members: family Marital status: Single service: No Current occupational status: disabled Current gender identity: Female Physical Exam Const: COMMON NORMALS: no acute distress, alert and well nourished GENERAL APPEARANCE: cooperative ORIENTATION/CONSCIOUSNESS: Yes awake and Yes oriented to person OTHER: seemingly baseline cognitive/intellectual disability HENMT: COMMON NORMALS: normocephalic and atraumatic HEAD & SCALP: normal to inspection, normocephalic and atraumatic FACE & SINUS: normal facial exam and sinuses nontender; no sinus tenderness and no edema MOUTH: Normal oral and palatal mucosa present and lip normal TEETH & GINGIVA: Yes poor dentition and Yes other (significant widespread dental disease; no abscess) TEETH & GINGIVA IMAGES:  1. missing molar-reports pain to socket; no edema, abscess, or evidence for active infection THROAT: posterior oropharynx normal and tonsils normal; no uvular edema Neck/C-Spine: COMMON NORMALS: no lymphadenopathy GI: COMMON NORMALS: Normal to inspection, nondistended, normoactive bowel sounds present, Soft to palpation and non-tender PALPATION: Yes Soft to palpation : COMMON NORMALS: Yes no CVA tenderness BLADDER/KIDNEY EXAM: Yes no CVA tenderness Back/Pelvis: COMMON NORMALS: no CVA tenderness, thoracic and lumbar spine normal to inspection, no thoracic nor lumbar tenderness, thoraco-lumbar ROM normal and straight leg raise negative bilaterally LUMBAR SPINE/LOWER BACK: Yes paraspinal muscle tenderness (mild discomfort across lower back) PELVIS: Yes buttocks normal and No sciatic notch tenderness SACRUM: no tenderness COCCYX: no tenderness Extremity: GENERAL: Yes normal exam except as noted Neuro: COMMON NORMALS: moves all extremities, no focal motor deficits, no sensory deficits noted and gait normal SENSORIUM/ORIENTATION: Yes alert and Yes oriented to person Skin: COMMON NORMALS: no rashes or lesions noted GENERAL SKIN EXAM: no rashes or lesions noted Course Vital Signs: Vital signs: Vital Signs Temperature 98.2 F 03/10/25 14:56 Pulse Rate 91 03/10/25 14:56 Respiratory Rate 17 03/10/25 14:56 Blood Pressure 133/84 03/10/25 14:56 Pulse Oximetry 96 03/10/25 14:56 Oxygen Delivery Me thod Room Air 03/10/25 14:56 [facility] - General Adult Medical Decision Making I do not identify any life-threatening or emergent etiology for any of her various complaints today. Recommend she follow-up with her dentist regarding her dental pain. Recommend she follow-up with primary care regarding her back discomfort. No acute neurologic deficits noted. One episode of diarrhea yesterday evening but has since been asymptomatic. She is not having any abdominal discomfort. Vital signs are normal. Medical Records I reviewed the patient's medical records. No radiology studies performed this visit Discharge Plan Discharge Patient Disposition: Home Clinical Impression: Pain, dental Back pain Qualifiers: Back pain location: low back pain Chronicity: acute Back pain laterality: midline Sciatica presence: without sciatica Qualified Code(s): M54.50 - Low back pain, unspecified Diarrhea Qualifiers: Diarrhea type: unspecified type Qualified Code(s): R19.7 - Diarrhea, unspecified Condition: Stable Prescriptions: No Action propranolol 10 mg tablet 10 mg PO BID Qty: 60 6RF quetiapine [Seroquel XR] 150 mg tablet extended release 24 hr 150 mg PO .7 pm Qty: 30 6RF topiramate [Topamax] 25 mg tablet 25 mg PO .noon Qty: 30 6RF paroxetine HCl 30 mg tablet 30 mg PO .6 pm Qty: 30 4RF Rx Instructions: Take one tablet at 6 pm Nexplanon 68 mg implant 1 implant subdermal Q36M sennosides-docusate sodium [Senna with Docusate Sodium] 8.6-50 mg tablet 1 tab-cap PO BID PRN (Reason: constipation) Qty: 14 0RF ondansetron 4 mg tablet,disintegrating 4 mg PO Q6H PRN (Reason: nausea and vomiting) Qty: 14 0RF acetaminophen [Tylenol Extra Strength] 500 mg Tablet 1,000 mg PO QID PRN (Reason: Pain) amoxicillin 875 mg tablet 875 mg PO BID Qty: 20 0RF Discharge Orders: Discharge ED (Routine); Ordered 03/10/25 Ordered By: Marybeth Garza Referrals: Diana Brooks PA [Primary Care Provider, [facility] Oncology Physician Assistant] Activity Restrictions/Additional Instructions: As we discussed, please follow-up with your primary care provider if your back pain does not improve over the next several days. You may follow-up with your dentist regarding your dental discomfort. You may return to the emergency department at anytime for any further concerns you may have. Print Language: Guyanese Coding Level of Care Code ED Film Washer for Ed Byers
[2025-03-10] MEDS: ketorolac 60 mg/2 mL INJ IM (16:16)
[2025-03-10] MEDS: dexamethasone 10 mg/mL INJ IM (16:16)
== END 2025-03-10 16:29 | disposition home or self-care (01) ==
PROVIDERS: Emergency Provider Physician Assistant; PCP Physician Assistant
DX: K08.89 Other specified disorders of teeth and supporting structures (principal); M54.50 Low back pain, unspecified; R19.7 Diarrhea, unspecified
CPT/HCPCS: 96372; 99284; J1100; J1885

== ENCOUNTER 2025-03-18 13:09 | Emergency (ER) | payer MEDICAID, SELFPAY ==
[2025-03-18 13:17] VITALS: PULSE 100; RESP 20; TEMP 36.8; O2SAT 96
[2025-03-18 13:29] VITALS: BP 192/144
--- OUTSIDE RECORDS SUMMARY | 2025-03-18 13:29 | XMS_ITS | Data Portability ---
Author Organization [facility] Address [address] Counts include 234 beds at the [facility] [address] [place] [address] Care Team Providers Care Shower Room Attendant Name Role Phone DARCY DOW Primary Care Provider Unavailabl e Assessment Encounter Date Assessment Date Assessment LastModified by Organization Details LastModified Time 06/26/2024 06/26/2024 Document scribed by Kan [employer]. I was present during interview and exam. I have reviewed and agree with above documentation . Dr. Thang Zaragoza. [email or web address] Not available 06/26/2024 12:56:18 Plan of Treatment Reminders Order Date Submit Date Provider Last Modified By Organization Details Last Modified Time Details Appointments None recorded. Lab urinalysis, dipstick 2024 025 [facility] ([facility] [address] [place], [address], 16:45:08 urinalysis, complete 2024 025 [facility], [address] [facility], [place] [address], [address], 5 14:46:35 culture, urine 2024 025 [facility], [address] [place] [address], [address] [place], [address], 5 22:26:06 urinalysis, dipstick 2023 024 [facility] ([facility]), [address] [place], [address], 4 16:49:19 culture, urine 2023 [employer] [employer] [facility], [address] [address], [address] [place], [address], 4 22:07:36 urinalysis, complete 2023 024 [email or web address] 47 [facility] ([facility]), [address] [place], [address], 4 13:05:22 culture, urine 2023 [employer] [employer] [facility], [address], [place], [address], 4 01:31:13 Referral None recorded. Procedures None recorded. Surgeries None recorded. Imaging None recorded. Medication Orders chlorhexidi ne gluconate 0.12 % mouthwash 2024 025 [facility] #[id number], [address] [place] [address], [address], 5 05:01:20 amoxicillin 875 mg-potassiu m clavulanate 125 mg tablet 2024 025 [id number] [address], [place], [address], 5 05:01:20 Miralax 17 gram oral powder packet 2024 025 [id number], [address], [place], [address], 5 12:46:09 ondansetron 4 mg disintegrat ing tablet 2024 025 [id number], [address] [facility] [address], [address], 5 12:46:01 Macrobid 100 mg capsule [address] [facility], [address], [place], [address], 15:29:49 amoxicillin 875 mg-potassiu m clavulanate 125 mg tablet [address] [facility], [address], [place], [address], 05:01:20 Patient TargetsNo targets recorded. Patient InstructionsNo instructions recorded. Reason for Referral None Reported. Results Created Date Observation Date Name Description Value Unit Range Abnormal Flag Note LastModifiedBy Organization Detail LastModifiedTime 06/26/2006/28/2024 CULTU RE, URINE , ROUTI NE culture, urine, routine SEE NOTE CULTU RE, URINE , ROUTI NE Micro Numbe r: [id number] Test Statu s: Final Speci men Sourc e: Urine , clean catch Speci men Quali ty: Adequ ate Resul t: Less than 10,00 0 CFU/m L of singl e Gram posit roya organ ism isola calderon. No furth er testi ng will be perfo rmed. If clini ghazala indic ated, recol lecti on using a metho d to minim ize conta minat ion, with promp t trans pam to Urine Cultu re Trans port Tube, is recom ruben d. Not Available [facility] [address] [place], [address], 06/28/2024 01:31:13 06/26/2006/26/2024 urina lysis , compl ete color yellow Not Available [facility] ([facility]) [address] [place], [address], 06/26/2024 12:38:50 06/26/20 24 06/26/2024 urina lysis , compl ete clarity slight ly cloudy clear abnormal Not Available [facility] ([facility]) [address] [place], [address], 06/26/2024 12:38:50 06/26/20 24 06/26/2024 urina lysis , compl ete glucose negati ve negati ve normal Not Available [facility] ([facility]) [address] [place], [address], 06/26/2024 12:38:50 06/26/20 24 06/26/2024 urina lysis , compl ete bilirubin negati ve negati ve normal Not Available [facility] ([facility]) [address] [place], [address], 06/26/2024 12:38:50 06/26/20 24 06/26/2024 urina lysis , compl ete ketones negati ve negati ve normal Not Available [facility] ([facility]) [address] [place], [address], 06/26/2024 12:38:50 06/26/20 24 06/26/2024 urina lysis , compl ete specific gravity 1.025 1.005- 1.025 normal Not Available [facility] ([facility]) [address] [place], [address], 06/26/2024 12:38:50 06/26/20 24 06/26/2024 urina lysis , compl ete pH 5.5 5.0-7. 0 normal Not Available [facility] ([facility]) [address] [place], [address], 06/26/2024 12:38:50 06/26/20 24 06/26/2024 urina lysis , compl ete protein negati ve Not Available [facility] ([facility]) [address] [place], [address], 06/26/2024 12:38:50 06/26/20 24 06/26/2024 urina lysis , compl ete uro 0.2 Not Available [facility] ([facility]) [address] [place], [address], 06/26/2024 12:38:50 06/26/20 24 06/26/2024 urina lysis , compl ete nitrate negati ve negati ve normal Not Available [facility] ([facility]) [address] [place], [address], 06/26/2024 12:38:50 06/26/20 24 06/26/2024 urina lysis , compl ete blood 1+ negati ve abnormal Not Available [facility] ([facility]) [address] [place], [address], 06/26/2024 12:38:50 06/26/20 24 06/26/2024 urina lysis , compl ete leukocytes 1+ negati ve abnormal Not Available [facility] ([facility]) [address] [place], [address], 06/26/2024 12:38:50 06/26/20 24 06/26/2024 urina lysis , compl ete WBC 30-40 0 high Not Available [facility] ([facility]) [address] [place], [address], 06/26/2024 12:38:50 06/26/20 24 06/26/2024 urina lysis , compl ete RBC 6-8 0 high Not Available [facility] ([facility]) [address] [place], [address], 06/26/2024 12:38:50 06/26/20 24 06/26/2024 urina lysis , compl ete epi cells 10-12 0 high Not Available [facility] ([facility]) [address] [place], [address], 06/26/2024 12:38:50 06/26/20 24 06/26/2024 urina lysis , compl ete bacteria 1+ mixed wale Not Available [facility] ([facility]) [address] [place], [address], 06/26/2024 12:38:50 06/26/20 24 06/26/2024 urina lysis , compl ete other trace of mucus thread s Not Available [facility] ([facility]) [address] [place], [address], 06/26/2024 12:38:50 08/08/20 24 08/09/2024 CULTU RE, URINE , ROUTI NE culture, urine, routine SEE NOTE CULTU RE, URINE , ROUTI NE Micro Numbe r: [id number] Test Statu s: Final Speci men Sourc e: Urine Speci men Quali ty: Adequ ate Resul t: No Growt h Not Available [facility] [address] [place], [address], 08/09/2024 22:07:36 08/08/20 24 08/08/2024 urina lysis , dipst ick Leukocytes Negati ve Not Available [facility] ([facility]) [address] [place], [address], 08/08/2024 15:26:05 08/08/20 24 08/08/2024 urina lysis , dipst ick Nitrite negati ve Not Available [facility] ([facility]) [address] [place], [address], 08/08/2024 15:26:05 08/08/20 24 08/08/2024 urina lysis , dipst ick Urobilinogen .2 Not Available [facility] ([facility]) [address] [place], [address], 08/08/2024 15:26:05 08/08/20 24 08/08/2024 urina lysis , dipst ick Protein 30 Not Available [facility] ([facility]) [address] [place], [address], 08/08/2024 15:26:05 08/08/20 24 08/08/2024 urina lysis , dipst ick pH 6.0 Not Available [facility] ([facility]) [address] [place], [address], 08/08/2024 15:26:05 08/08/20 24 08/08/2024 urina lysis , dipst ick Blood Non-He molyze d: Trace Not Available [facility] ([facility]) [address] [place], [address], 08/08/2024 15:26:05 08/08/20 24 08/08/2024 urina lysis , dipst ick Specific [place] 1.030 Not Available [facility] ( [facility]) [address] [place], [address], 08/08/2024 15:26:05 08/08/20 24 08/08/2024 urina lysis , dipst ick Ketone Negati ve Not Available [facility] ([facility]) [address] [place], [address], 08/08/2024 15:26:05 08/08/20 24 08/08/2024 urina lysis , dipst ick Bilirubin Small Not Available [facility] ([facility]) [address] [place], [address], 08/08/2024 15:26:05 08/08/20 24 08/08/2024 urina lysis , dipst ick Glucose Negati ve Not Available [facility] ([facility]) [address] [place], [address], 08/08/2024 15:26:05 08/08/20 24 08/08/2024 urina lysis , dipst ick Appearance Clear Not Available [facility] [address] [place], [address], 08/08/2024 15:26:05 08/08/20 24 08/08/2024 urina lysis , dipst ick Color Yellow Not Available [facility] ([facility]) [address] [place], [address], 08/08/2024 15:26:05 10/15/19 25 10/15/2024 URINA LYSIS WITH MICRO color YELLOW Not Available [facility] [address], [address], 10/15/2024 14:46:35 10/15/19 25 10/15/2024 URINA LYSIS WITH MICRO clarity CLEAR Not Available [facility] [address] [address], [place], [address], 10/15/2024 14:46:35 10/15/19 25 10/15/2024 URINA LYSIS WITH MICRO glu NEGATI VE Not Available [facility] [address] [facility] [address], [address], 10/15/2024 14:46:35 10/15/19 25 10/15/2024 URINA LYSIS WITH MICRO bili NEGATI VE Not Available [facility] [address] [facility] [address], [place], [address], 10/15/2024 14:46:35 10/15/19 25 10/15/2024 URINA LYSIS WITH MICRO ket NEGATI VE Not Available [facility] [address] [facility] [address], [place], [address], 10/15/2024 14:46:35 10/15/19 25 10/15/2024 URINA LYSIS WITH MICRO S.g >1.030 1.005- 1.025 high > Not Available [facility] [address] [facility] 1, [place], [address], 10/15/2024 14:46:35 10/15/19 25 10/15/2024 URINA LYSIS WITH MICRO pH 5.0 5.0-7. 0 Not Available [facility] [address] [facility] [address], [place], [address], 10/15/2024 14:46:35 10/15/19 25 10/15/2024 URINA LYSIS WITH MICRO pro NEGATI VE Not Available [facility] [address] [facility] [address], [place], [address], 10/15/2024 14:46:35 10/15/19 25 10/15/2024 URINA LYSIS WITH MICRO uro 0.2 E.U./D L Not Available [facility] [address] [facility] 1, [place], [address], 10/15/2024 14:46:35 10/15/19 25 10/15/2024 URINA LYSIS WITH MICRO nit NEGATI VE Not Available [facility] [address] [facility] 1, [place], [address], 10/15/2024 14:46:35 10/15/19 25 10/15/2024 URINA LYSIS WITH MICRO blo NEGATI VE Not Available [facility] [address] [facility] 1, [place], [address], 10/15/2024 14:46:35 10/15/19 25 10/15/2024 URINA LYSIS WITH MICRO kin NEGATI VE Not Available [facility] [address] [facility] 1, [place], [address], 10/15/2024 14:46:35 10/15/19 25 10/15/2024 URINA LYSIS WITH MICRO WBC 12-15 Not Available [facility] [address] [facility] 1, [place], [address], 10/15/2024 14:46:35 10/15/19 25 10/15/2024 URINA LYSIS WITH MICRO RBC 12-15 Not Available [facility] [address] [facility] 1, [place], [address], 10/15/2024 14:46:35 10/15/19 25 10/15/2024 URINA LYSIS WITH MICRO epi cells 3-4 Not Available [facility] [address] [facility] 1, [place], [address], 10/15/2024 14:46:35 10/15/19 25 10/15/2024 URINA LYSIS WITH MICRO bacteria 2+ MUCUS THREAD S Not Available [facility] [address] [facility] 1, [place], [address], 10/15/2024 14:46:35 10/15/19 25 10/15/2024 URINA LYSIS WITH MICRO other NEGATI VE Not Available [facility] [address] [facility] 1, [place], [address], 10/15/2024 14:46:35 10/15/19 25 10/16/2024 CULTU RE, URINE , ROUTI NE culture, urine, routine SEE NOTE CULTU RE, URINE , ROUTI NE Micro Numbe r: [id number] Test Statu s: Final Speci men Sourc e: Urine Speci men Quali ty: Adequ ate Resul t: No Growt h Not Available [facility] [address] [address], [place], [address], 10/16/2024 22:26:06 10/22/19 25 10/22/2024 urina lysis , dipst ick Leukocytes Negati ve Not Available [facility] ([facility]) [address] [place], [address], 10/22/2024 16:35:43 10/22/19 25 10/22/2024 urina lysis , dipst ick Nitrite negati ve Not Available [facility] ([facility]) [address] [place], [address], 10/22/2024 16:35:43 10/22/19 25 10/22/2024 urina lysis , dipst ick Urobilinogen .2 Not Available [facility] ([facility]) [address] [place], [address], 10/22/2024 16:35:43 10/22/19 25 10/22/2024 urina lysis , dipst ick Protein 30 Not Available [facility] ([facility]) [address] [place], [address], 10/22/2024 16:35:43 10/22/19 25 10/22/2024 urina lysis , dipst ick pH 5.5 Not Available [facility] ([facility]) [address] [place], [address], 10/22/2024 16:35:43 10/22/19 25 10/22/2024 urina lysis , dipst ick Blood Large Not Available [facility] ([facility]) [address] [place], [address], 10/22/2024 16:35:43 10/22/19 25 10/22/2024 urina lysis , dipst ick Specific [place] 1.030 Not Available [facility] ( [facility]) [address] [place], [address], 10/22/2024 16:35:43 10/22/19 25 10/22/2024 urina lysis , dipst ick Ketone Large (160) Not Available [facility] ([facility]) [address] [place], [address], 10/22/2024 16:35:43 10/22/19 25 10/22/2024 urina lysis , dipst ick Bilirubin Modera te Not Available [facility] ([facility]) [address] [place], [address], 10/22/2024 16:35:43 10/22/19 25 10/22/2024 urina lysis , dipst ick Glucose Negati ve Not Available [facility] ([facility]) [address] [place], [address], 10/22/2024 16:35:43 10/22/19 25 10/22/2024 urina lysis , dipst ick Appearance Clear Not Available [facility] ([facility]) [address] [place], [address], 10/22/2024 16:35:43 10/22/19 25 10/22/2024 urina lysis , dipst ick Color Dark Yellow Not Available [facility] ([facility]) [address] [place], [address], 10/22/2024 16:35:43 Result Notes None recorded. Problems Name Problem SNOMED Code Status Onset Date Resolution Date Notes Provider Name and Address Organization Details Recorded Time Contracept ion care management Active 2022 CONTRACEPT ROYA MANAGEMENT ; Recorded 12/02/2022 2:08PM by Cheryl Leone, Office Visit; Promoted; acuity set as *; MITCHELL martinez [facility] 12:46:57 Asthma 416952070 Active 03/10/ 2023 ASTHMA, ACUTE; Recorded 12/02/2022 2:08PM by Cheryl Leone, Office Visit; Promoted; acuity set as *; MITCHELL MACIAS michelle, [facility] 5 12:46:52 Mixed anxiety and depressive disorder 170335566 Active 2024 MITCHELL martinez, [facility] 5 12:47:01 Toothache 75992579 Active 2024 MITCHELL martinez, [facility] 5 12:47:07 Problem Notes None recorded. Medical Equipment None Reported. Allergies No known drug allergies Medications Name Sig Start Date Stop Date Status Note LastModified by Organization Details LastModified Time quetiapin e 25 mg tablet at bedtime 03/15 completed [facility]; 0; Recorded 12/03/19 2:08PM by Cheryl Leone, Office Visit; Not Available Not Available Not Available amoxicill in 500 mg capsule TAKE 1 CAPSULE BY MOUTH THREE TIMES DAILY FOR 10 DAYS 02/26 completed Not Available Not Available Not Available nystatin 100,000 unit/mL oral suspensio n SWISH & SWALLOW 5 ML 4 TIMES DAILY FOR 7 DAYS 02/26 completed Not Available Not Available Not Available clindamyc in HCl 300 mg capsule TAKE 1 CAPSULE BY MOUTH THREE TIMES DAILY FOR 7 DAYS 06/26 completed Not Available Not Available Not Available cetirizin e 10 mg tablet Take 1 tablet every day by oral route. 02/07 completed Not Available Not Available Not Available Lidocaine Viscous 2 % mucosal solution APPLY TO MUCOUS MEMBRANE THREE TIMES DAILY NEEDED 02/07 completed Not Available Not Available Not Available prazosin 1 mg capsule Take 1 capsule every day by oral route at bedtime. active Not Available Not Available No t Available prednison e 20 mg tablet Take 2 tablets every day by oral route for 3 days. 02/07 completed Not Available Not Available Not Available sertralin e 100 mg tablet TAKE ONE TABLET BY MOUTH EVERY MORNING 03/15 completed Not Available Not Available Not Available clindamyc in HCl 150 mg capsule TAKE 2 CAPSULES BY MOUTH 4 TIMES DAILY 01/02 completed Not Available Not Available Not Available hydroxyzi ne pamoate 50 mg capsule TAKE 1 CAPSULE BY MOUTH TWICE DAILY NEEDED FOR ANXIETY 02/07 completed Not Available Not Available Not Available topiramat e 25 mg tablet TAKE 1 TABLET BY MOUTH ONCE DAILY AT NOON 02/26 completed Not Available Not Available Not Available sulfameth oxazole 800 mg-trimet hoprim 160 mg tablet TAKE 1 TABLET BY MOUTH TWICE DAILY 02/26 completed Not Available Not Available Not Available omeprazol e 40 mg capsule,d elayed release TAKE 1 CAPSULE BY MOUTH ONCE DAILY 10/11 completed Not Available Not Available Not Available quetiapin e 100 mg tablet TAKE 1 TABLET BY MOUTH AT BEDTIME 08/08 completed Not Available Not Available Not Available cyprohept adine 4 mg tablet TAKE ONE TABLET BY MOUTH AT BEDTIME 02/07 completed Not Available Not Available Not Available propranol ol 10 mg tablet TAKE 1 TABLET BY MOUTH TWICE DAILY IN THE MORNING AND THE EVENING active Not Available Not Available No t Available amoxicill in 875 mg tablet TAKE ONE TABLET BY MOUTH TWICE DAILY active Not Available Not Available No t Available trazodone 100 mg tablet TAKE ONE TABLET AT BEDTIME NEEDED FOR SLEEP 02/07 completed Not Available Not Available Not Available cephalexi n 500 mg capsule TAKE ONE CAPSULE BY MOUTH THREE TIMES DAILY for SEVEN DAYS active Not Available Not Available No t Available paroxetin e 30 mg tablet TAKE ONE TABLET BY MOUTH DAILY AT 6pm active Not Available Not Available No t Available paroxetin e 20 mg tablet TAKE 1 TABLET BY MOUTH ONCE DAILY AT 6PM active Not Available Not Available No t Available neomycin- polymyxin -dexameth 3.5 mg/mL-10, 000 unit/mL-0 .1% eye drops instill TWO DROPS into THE ear(s) TWICE DAILY for SEVEN DAYS active Not Available Not Available No t Available buspirone 10 mg tablet TAKE 1 TABLET BY MOUTH EVERY MORNING 02/07 completed Not Available Not Available Not Available omeprazol e 20 mg capsule,d elayed release TAKE 1 CAPSULE BY MOUTH ONCE DAILY ON EMPTY STOMACH 30 MINUTES TO 1 HOUR PRIOR TO MEAL 02/26 completed Not Available Not Available Not Available polyethyl ning glycol 3350 17 gram/dose oral powder TAKE 1 PACKET BY MOUTH EVERY DAY active Not Available Not Available No t Available albuterol sulfate HFA 90 mcg/actua tion aerosol inhaler Inhale 2 puffs every 4 hours by inhalati on route as needed. 02/07 completed Not Available Not Available Not Available propranol ol 20 mg tablet TAKE 1 TABLET BY MOUTH THREE TIMES DAILY AT 9AM,3PM, AND 9PM 10/11 completed Not Available Not Available Not Available celecoxib 100 mg capsule TAKE 1 CAPSULE BY MOUTH TWICE DAILY NEEDED 02/07 completed Not Available Not Available Not Available ondansetr on 4 mg disintegr ating tablet Place 1 tablet twice a day by translin gual route as needed. 02/26 completed Not Available Not Available Not Available fluticaso ne propionat e 50 mcg/actua tion nasal spray,mane [employer] [place] 2 sprays every day by intranas al route. 02/07 completed Not Available Not Available Not Available sertralin e 50 mg tablet TAKE 1 TABLET BY MOUTH EVERY DAY IN THE MORNING 02/07 completed Not Available Not Available Not Available amoxicill in 875 mg-potass ium clavulana te 125 mg tablet Take 1 tablet twice a day by oral route for 10 days. 03/15 completed Not Available Not Available Not Available nitrofura ntoin monohydra te/macroc rystals 100 mg capsule TAKE 1 CAPSULE BY MOUTH EVERY 12 HOURS FOR 7 DAYS 10/11 completed Not Available Not Available Not Available chlorhexi dine gluconate 0.12 % mouthwash Place 15 mL twice a day by mucous membrane route for 10 days, for swish and spit. 03/15 completed Not Available Not Available Not Available aripipraz ole 2 mg tablet TAKE 1 TABLET BY MOUTH EVERY MORNING 02/07 completed Not Available Not Available Not Available Symbicort 160 mcg-4.5 mcg/actua tion HFA aerosol inhaler INHALE 2 PUFFS BY MOUTH TWICE DAILY FOR 30 DAYS active Not Available Not Available No t Available quetiapin e ER 150 mg tablet,ex tended release 24 hr TAKE 1 TABLET BY MOUTH ONCE DAILY AT 7 PM active Not Available Not Available No t Available Vitals Date Recorded Body height Body mass index (BMI) Body weight Oxygen saturation Oxygen saturation in Arterial blood by Pulse oximetry Heart rate Respiratory rate Body temperature Systolic blood pressure Diastolic blood pressure Provider Name and Address Organization Details Last Updated DateTime 5 160.02 cm 37.2 kg/m2 48835.4 g 99 % 99 % 80 /min 20 /min 98 [degF] 138 mm[Hg] 80 mm[Hg] RICHARD BOYD [facility] 5 12:40:49 Date Recorded Body height Body mass index (BMI) Body weight Oxygen saturation Oxygen saturation in Arterial blood by Pulse oximetry Heart rate Body temperature Systolic blood pressure Diastolic blood pressure Provider Name and Address Organization Details Last Updated DateTime 5 160.02 cm 36.8 kg/m2 70726.2 1 g 97 % 97 % 63 /min 97.8 [degF] 130 mm[Hg] 98 mm[Hg] Li Wynn [facility] 5 16:13:28 Date Recorded Body height Body mass index (BMI) Body weight Body temperature Oxygen saturation Oxygen saturation in Arterial blood by Pulse oximetry Heart rate Systolic blood pressure Diastolic blood pressure Provider Name and Address Organization Details Last Updated DateTime 5 160.02 cm 39.3 kg/m2 398677. 51 g 97.5 [degF] 99 % 99 % 86 /min 100 mm[Hg] 65 mm[Hg] MITCHELL MACIAS [facility] 5 12:45:20 Date Recorded Body height Body temperature Body mass index (BMI) Body weight Oxygen saturation Oxygen saturation in Arterial blood by Pulse oximetry Heart rate Respiratory rate Systolic blood pressure Diastolic blood pressure Provider Name and Address Organization Details Last Updated DateTime 4 160.02 cm 98.2 [degF] 38 kg/m2 36840.5 7 g 97 % 97 % 90 /min 18 /min 122 mm[Hg] 84 mm[Hg] Chula James [facility] 4 12:37:18 Date Recorded Body height Body mass index (BMI) Body weight Oxygen saturation Oxygen saturation in Arterial blood by Pulse oximetry Heart rate Respiratory rate Body temperature Systolic blood pressure Diastolic blood pressure Provider Name and Address Organization Details Last Updated DateTime 4 160.02 cm 37.6 kg/m2 92399.5 8 g 99 % 99 % 87 /min 16 /min 98.2 [degF] 140 mm[Hg] 90 mm[Hg] Jaja Gan [facility] 4 15:27:58 Social History None recorded. Functional Status None recorded. Mental Status None recorded. Family History Nothing Reported. Medical History No medical history recorded. Gynecological HistoryNo gynecological history recorded. Obstetrics History GPAL:G 0 P 0 0 0 0 Past Encounters Encounter ID Performer Location Encounter Start Date Encounter Closed Date Diagnosis/Indication Diagnosis SNOMED-CT Code Diagnosis ICD10 Code Diagnosis Note [id number] LUIS ALBERTO CORDOBA NP [facility] ([facility]) [address] [place] [id number] 04/10/2023 10:43:35 04/10/2023 15:20:45 Exacerbation of intermittent asthma 904274087 J45.21 Discussed to take steroid and albuterol inhaler as prescribed until completed. Educated patient on proper use of albuterol inhaler and to use as prescribed as needed for wheezing/s hortness of breathMay utilize OTC allergy medication and/or flonase as box directs for drainage.U se a humidifier in the bedroom at night.May utilize vicks vapor rubUtilize OTC cough medicine, cough drops and/or honey for coughIncre ase PO fluid intakeMay utilize OTC Ibuprofen or Tylenol for discomfort . If you develop wheezing, shortness of breath or feel worse despite treatment follow up with PCP, walk-in clinic or the ED. Return to clinic if any changes, any worsening, any concerns.P atient verbalized understand ing of plan [id number] AMBROSE WALKER [facility] ([facility]) [address] [place] [phone] 5 06/10/2023 13:57:31 06/10/2023 15:43:50 Cough [id number] R05.9 Viral uppe r respiratory tract infection [id number] J06.9 Use antihistam deirdre for symptomati c relief. Patient advised to increase po fluids. [id number] KEI MARI [facility] ([facility]) [address] [place], [place] [phone] 11/15/2023 14:16:26 11/15/2023 15:19:48 Dysuria [id number] R30.0 Acute urin akilah tract infection [id number] N39.0 Start Macrobid BID x7 days, take as prescribed . Encouraged to increase water intake and decrease caffeine and sugary drinks. If still having symptoms after completion of antibiotic s, recommend a urine re-check. Urine was sent for culture. Will call with culture results. If worsening condition or no improvemen t in 3-5 days, recommend returning for re-evaluat ion. Patient verbalized understand ing. [id number] AMBROSE REAL [facility] ([facility]) [address] [place] [address] 5 01/03/2024 15:14:48 01/03/2024 15:28:03 Toothache [id number] K08.89 Will start on antibiotic to cover for possible dental infection. Discussed to f/u 1 in week if symptoms persist. [id number] DARCY DOW PA-C [facility] ([facility]) [address] [place] [address] 5 02/08/2024 14:23:15 02/08/2024 18:53:02 Gastroesophageal reflux disease [id number] K21.9 Mild inter mittent asthma [id number] J45.20 [id number] AMBROSE REAL [facility] ([facility]) [address] [place], [place] [phone] 03/15/2024 17:19:09 03/15/2024 18:31:56 Infection of tooth [id number] K04.7 Discussed use of antibiotic for full course. May take tylenol/mo jordy for discomfort .Rinse mouth with mouthwash or saltwater rinses after eating/dri nking to keep the mouth clean.Call dentist today to schedule f/u appt.F/u sooner if you develop difficulty swallowing , fever, increased swelling. [id number] Thang Zaragoza DO [facility] ([facility]) [address] [place] [phone] 5 06/26/2024 12:29:54 06/26/2024 14:07:07 Dysuria [id number] R30.0 UTI, counseled Augmentin for 10 days. Infection of tooth [id number] K04.7 Augmentin, counseled to let the Dentist know we have treated with abx, keep upcoming dental appt. [id number] Adiel Isaac MD [facility] ([facility]) [address] [place] [phone] 5 08/08/2024 15:22:35 08/12/2024 10:44:28 Dysuria [id number] R30.0 Acute urin akilah tract infection [id number] N39.0 UA showed trace blood and given her symptoms we will go ahead and start treatment for UTI. Ultrasound is pending. Patient was encouraged to increase fluid intake. [id number] DARCY DOW PA-C [facility] ([facility]) [address] [place] [phone] 5 10/15/2024 11:41:10 10/16/2024 11:33:32 Dysuria [id number] R30.0 her er records reviewed and neg culture from last week.Will recheck today since she continues with burningGAv e her a tube of vaseline here and encourged her to use for barrier cream and moisturize since she seems not have more constant burning [id number] AMBROSE REAL [facility] ([facility]) [address] [place] [phone] 5 10/22/2024 15:22:33 10/25/2024 06:46:07 Abdominal pain [id number] R10.9 Urine dip normal today. Constipation [id number] K5 9.00 Discussed use of Miralax daily until pt starts having stools. No signs of acute abd today. Pt states she gets nauseated sometimes but no vomiting so zofran sent in. [id number] Tena Salgado MD [facility] ([facility]) [address] [place] [phone] 5 02/26/2025 12:33:30 02/27/2025 16:11:27 Ulcer of mouth [id number] K12.1 OTC anbesol prn. Acute secr etory otitis media [id number] H65.191 Health Concerns Section Related Observation LastModified by Organization Detai ls LastModified Time None Recorded Concern Status LastModified by Organization Details LastModified Time None Recorded Advance Directives Directive None Recorded Payers Insurance Date Sequence Insurance Name Policy Number Policy Flores Covered Member ID Flores Member ID Guarantor Name 02/26/2025 1 [place] Holiday N Daren [id number] Holiday N Daren 02/26/2025 [place] [facility] Holiday N Daren [id number] Holiday N Daren Notes Date Note Type Note Provider Name and Address Organization Details Recorded Time 06/26/2024 text/html Pt presents for acute illness, blood in urine and facial pain. Urinary symptoms onset 2-3 days ago, burning with urination, blood in urine. Also with left dental pain for 4 days. She is scheduled with a Dentist in approx 2 weeks. Thang Zaragoza DO [address] [place] [address], [address] [place] [address], [facility] 06/26/2024 18:06:20 08/08/2024 text/html walk in patientp atient is here today for burning when urinating that started a couple of days ago. Patient also admits to increased urgency and frequency of urination. Adiel Isaac MD [address] [place] [address], [address] [place] [address], [facility] 08/09/2024 12:05:55 10/15/2024 text/html Upper Respirator y SymptomsReported bypatient.Location[facility] Quality:congested;dry cough;nasal discharge Severity:moderate Duration:symptoms lasting over 2 weeks Onset/Timing:sudden Context:no sick contacts; no foreign travel; non-smoker Alleviating Factors:analgesics; antihistamines Associated Symptoms:no chest pain;shortness of breathVaginal DrynessReported bypatient.Location:[facility] Quality:dry Severity:moderate Duration:intermittent Onset/Timin-7 days Context:DOESN'T HAVE PERIODS WITH IMPLANT Modifying Factors:nothing gives relief; nothing makes it worse Associated Symptoms:no vaginal discharge; no vaginal atrophy; (normal) depression went to ER last week. normal work upOn amoxil already for dental pain DARCY DOW PA-C [address] [place], [phone], [facility], [place]. 10/26/2024 12:01:27 10/22/2024 text/html walk inPt presen ts with c/o abd pain. Mother states has been evaluated in the ER twice this week for the abd pain. Pt was dx'd with constipation and given Miralax. Pt states she took the miralax one day, no bowel movement, and has not taken any other meds. Denies vomiting, diarrhea, or fever. No urinary symptoms. AMBROSE REAL [address] [place], [phone], [facility], [place]. 10/23/2024 09:43:05 02/26/2025 text/html Ear Pain Brief HPIReported bypatient.Location:rig [facility] Quality:aching pain;sharp pain;itching Severity:no fever She has very painful sores in the back part of her left mouth ever since they pulled her left front tooth She has been complaining of right ear pain Tena Salgado MD [address] [place] [address], [phone], [facility], L[facility]a. 02/26/2025 18:37:22 OBGyn Episode No OBEpisode recorded.
--- NOTE | 2025-03-18 13:59 | ED_ITS ---
Documented by User: NELLY Weaver 03/18/25 16:22 HPI - General Adult 2 General: Chief complaint: General Medical Stated complaint: eye and face pain Time Seen by Provider: 03/18/25 13:49 Source: patient and family (mother) Mode of arrival: ambulatory Limitations: no limitations History of Present Illness: Patient is a 29-year-old female who presents to the ED today with acute onset of L periorbital and facial pain that radiates to L side of her jaw. She states that this pain started yesterday and it has increasingly gotten worse. Reporting intermittent pressure behind my eye . She has tried Advil to help with the pain, but it is not worked. She denies any history of migraines or something like this ever happening before although mother states maybe she has? Has been seen here before several times for L sided dental pain. Patient denies blurry vision, visual loss, eye drainage, change in vision, sore throat, dental pain, fever, shortness of breath, chest palpitations. Has not noticed any swelling to her face or neck. She states that she has panic attacks whenever she is in a lot of pain, and she is scared she is going to have a panic attack because she is in pain. Patient is diaphoretic and shaky during H&P and intermittently holding her breath. Limitations include cognitive delays. MD complaint: L sided facial pain Onset (ago): day(s) (yesterday) Location: face, mouth and eyes (L eye) Radiation: other (L side of face/jaw) Severity: moderate Severity scale (1-10): 8 Quality: other (pressure) Pain Consistency: intermittent Relieving factors: none Exacerbating factors: none Associated symptoms: Reports no associated symptoms and headache(s); Deny chest pain, confusion, dyspnea, malaise or vomiting Treatments prior to arrival: NSAID Related Data Home Medications ?Medication ?Instructions ?Recorded ?Confirmed etonogestrel 68 mg subdermal 1 implant subdermal Q36M 08/26/24 02/19/25 implant (Nexplanon) acetaminophen 500 mg tablet 1,000 mg PO QID PRN Pain 0 10/10/24 02/19/25 (Tylenol Extra Strength) Previous Rx's ?Medication ?Instructions ?Recorded ondansetron 4 mg disintegrating 4 mg PO Q6H PRN nausea and 10/20/24 tablet vomiting #14 tabs sennosides 8.6 mg-docusate sodium 1 tab-cap PO BID PRN constipation 10/20/24 50 mg tablet (Senna with Docusate #14 tabs Sodium) propranolol 10 mg tablet 10 mg PO BID #60 tabs quetiapine 150 mg tablet,extended 150 mg PO .7 pm #30 tabs 10/29/24 release 24 hr (Seroquel XR) topiramate 25 mg tablet (Topamax) 25 mg PO .noon #30 t abs 10/29/24 paroxetine HCl 30 mg tablet 30 mg PO .6 pm #30 tabs amoxicillin 875 mg tablet 875 mg PO BID #20 tabs 02/27 gabapentin 300 mg capsule 300 mg PO BEDTIME 30 days #3 0 caps 03/18/25 oxcarbazepine 300 mg tablet 300 mg PO BID #60 tabs Allergies Allergy/AdvReac Type Severity Reaction Status Date / Time phenazopyridine Allergy unknown Verified 02/19/25 13:16 Review of Systems 2 Const: Denies: fever(s), chills, body aches, fatigue or malaise Eyes: Denies: change in vision, blurry vision, blind spots, photophobia, floaters or seeing flashes ENMT: Reports: sinus pain; Denies: throat pain, odynophagia, mouth pain, swelling of lips/tongue, oral sores, ear or mastoid pain, nasal discharge or nasal congestion Card: Denies: chest pain Resp: Denies: dyspnea GI: Denies: abdominal pain, vomiting or diarrhea Musc: Denies: neck pain Neuro: Reports: headache(s); Denies: numbness in extremities, weakness in extremities, sensory changes, difficulty walking, dizziness, confusion or behavioral changes PFSH ED 2 PFSH: Medical History Psychiatric care Psychiatric care Ringworm of body Unspecified asthma, uncomplicated Moderate intellectual disabilities Generalized anxiety disorder Chronic post-traumatic stress disorder Major depressive disorder, recurrent episode, moderate with anxious distress Surgical History No pertinent past surgical history Social History (Reviewed 03/18/25 @ 14:23 by PATRICK Weaver Smoking and tobacco/nicotine status: never used tobacco/nicotine Second hand smoke exposure: Yes Alcohol intake: never Substance/Drug Use: never Adopted: No Caregiver/support person: Yes Lives independently: No Household members: family Marital status: Single service: No Current occupational status: disabled Current gender identity: Female Physical Exam 2 Const: COMMON NORMALS: patient oriented x3, alert and well nourished G ENERAL APPEARANCE: cooperative and anxious NUTRITIONAL APPEARANCE: overweight ORIENTATION/CONSCIOUSNESS: Yes awake, Yes oriented to person, Yes oriented to place and Yes oriented to time OTHER: at mental baseline; cognitive delay intermittently hyperventilating and breath holding; diaphoretic HENMT: COMMON NORMALS: normocephalic, atraumatic, hearing grossly normal bilaterally, external ears normal, EAC's normal, TM's normal bilaterally and Normal external nose present HEAD & SCALP: normal to inspection, normocephalic and atraumatic FACE & SINUS: normal facial exam, sinuses nontender, face symmetric and other (intermittently holding her breath until her face turns red); no sinus tenderness, no erythema and no edema NOSE: Normal external nose present EXTERNAL EAR: Yes external ears normal and Yes mastoids normal E XTERNAL AUDITORY CANAL: EAC's normal TYMPANIC MEMBRANE: TM's normal bilaterally MOUTH: Normal oral and palatal mucosa present, lip normal, tongue normal and Normal salivary glands and ducts present TEETH & GINGIVA: Yes caries and Yes other (overall very poor dentition, no obvious dental abscess) THROAT: posterior oropharynx normal and tonsils normal Eye: COMMON NORMALS: Equal, round and reactive pupils present and EOMs intact bilaterally GENERAL EYE: appearance normal, both eyes and all related structures and normal light reflex PUPIL: Yes Equal, round and reactive pupils present DIRECT OPHTHALMOSCOPY: Yes normal light reflex Neck/C-Spine: COMMON NORMALS: full ROM, no lymphadenopathy, no meningeal signs and no JVD GENERAL: Yes normal visual inspection, No anterior neck swelling, No lymphadenopathy and No submandibular swelling CERVICAL SPINE: Yes cervical ROM normal, No Cervical spine tenderness and No Paracervical muscle tenderness Resp: COMMON NORMALS: normal respiratory effort and clear to auscultation bilaterally AUSCULTATION: clear to auscultation bilaterally Cardio: COMMON NORMALS: no JVD, regular rate and regular rhythm RATE: r egular rate RHYTHM: regular rhythm GI: COMMON NORMALS: Normal to inspection, nondistended, normoactive bowel sounds present, Soft to palpation and non-tender PALPATION: Yes Soft to palpation Extremity: GENERAL: Yes normal exam except as noted Neuro: DENIZ COMA SCALE: document GCS findings Deniz coma scale eye opening: Spontaneous Deniz coma scale verbal response: Orientated Deniz coma scale motor response: Obey commands [place] coma scale total score: 15 COMMON NORMALS: patient oriented x3, CN's II-XII intact bilaterally, moves all extremities, no focal motor deficits and no sensory deficits noted S ENSORIUM/ORIENTATION: Yes alert, Yes oriented to person, Yes oriented to place and Yes oriented to time MENINGEAL SIGNS: Yes no meningeal signs Skin: NARRATIVE SKIN EXAM: normal skin examination apart from she is diaphoretic Course 2 Vital Signs: Vital signs: Vital Signs Temperature 98.3 F 03/18/25 13:17 Pulse Rate 91 03/18/25 15:07 Respiratory Rate 20 H 03/18/25 13:17 Blood Pressure 120/84 03/18/25 15:07 Pulse Oximetry 97 03/18/25 15:07 Oxygen Delivery Me thod Room Air 03/18/25 15:07 [facility] - General Adult Lab Data 03/18/25 15:00 03/18/25 15:[address] 03/18/25 14:06 IMPRESSION: Negative head CT. Head/Neck CTA 03/18/25 16:01 IMPRESSION: No intracranial large vessel arterial stenosis or occlusion. IMPRESSION: No significant cervical arterial stenosis or occlusion. REFERENCES: NASCET CRITERIA. The degree of stenosis in the cervical segment of the internal carotid artery is based on NASCET criteria. Normal is no stenosis. Mild is less than 50% stenosis. Moderate is 50-69% stenosis. Severe is 70% to 99% stenosis. Total occlusion is no detectable patent lumen. Laboratory Results WBC 11.54 10^3/uL (3.29-11.43) H 03/18/25 15:00 RBC 4.84 10^6/uL (3.85-5.65) 03/18/25 15:00 Hgb 13.10 g/dL (11.27-16.99) 03/18/25 15:00 Hct 41.7 % (36-47) 03/18/25 15:00 MCV 86.2 fl (85-98) 03/18/25 15:00 MCH 27.1 pg (27-33) 03/18/25 15:00 MCHC 31.4 g/dL (30-55) 03/18/25 15:00 RDW 14.3 % (12.1-15.1) 03/18/25 15:00 Plt Count 416 10^3/cmm (157-399) H 03/18/25 15:00 MPV 10.7 fL (7.4-10.4) H 03/18/25 15:00 Neut % (Auto) 74.4 % 03/18/25 15:00 Lymph % (Auto) 17.0 % 03/18/25 15:00 Ritchie % (Auto) 4.2 % 03/18/25 15:00 Eos % (Auto) 3.4 % 03/18/25 15:00 Baso % (Auto) 0.8 % 03/18/25 15:00 Neut # (Auto) 8.60 10^3/uL (1.8-7.7) H 03/18/25 15:00 Lymph # (Auto) 2.0 10^3/uL (0.8-4.8) 03/18/25 15:00 Ritchie # (Auto) 0.5 10^3/uL (0.2-0.9) 03/18/25 15:00 Eos # (Auto) 0.4 10^3/uL (0.0-0.8) 03/18/25 15:00 Baso # (Auto) 0.1 10^3/uL (0.0-0.1) 03/18/25 15:00 Nucleated RBC % (auto) 0 % 03/18/25 15:00 Nucleated RBCs # 0.0 /100WBC 03/18/25 15:00 Sodium 140 mmol/L (136-145) 03/18/25 15:00 Potassium 4.7 mmol/L (3.5-5.1) 03/18/25 15:00 Chloride 105 mmol/L (98-107) 03/18/25 15:00 Carbon Dioxide 19 mmol/L (22-29) L 03/18/25 15:00 Anion Gap 20.7 (5-19) H 03/18/25 15:00 BUN 25 mg/dL (6-20) H 03/18/25 15:00 Creatinine 1.1 mg/dL (0.5-0.9) H 03/18/25 15:00 GFR Calculation 59.6 mL/min (90-130) L 03/18/25 15:00 Glucose 94 mg/dL (65-115) 03/18/25 15:00 Calculated Osmolality 294 mOsm/kg (285-295) 03/18/25 15:00 Calcium 9.3 mg/dL (8.5-10.5) 03/18/25 15:00 Total Bilirubin 0.2 mg/dL (0.15-1.2) 03/18/25 15:00 AST 23 U/L (0-32) 03/18/25 15:00 ALT 26 U/L (0-33) 03/18/25 15:00 Alkaline Phosphatase 131 U/L (35-105) H 03/18/25 15:00 C-Reactive Protein 17.1 mg/L (0.0-4.9) H 03/18/25 15:00 Total Protein 9.1 g/dL (6.6-8.7) H 03/18/25 15:00 Albumin 4.3 g/dL (3.5-5.2) 03/18/25 15:00 Globulin 4.8 g/dL (1.3-4.6) H 03/18/25 15:00 TSH 6.77 uIU/mL (0.27-4.20) H 03/18/25 15:00 EKG Data EKG 1: Computer generated interpretation: Head CT 03/18/25 14:06 IMPRESSION: Negative head CT. Head/Neck CTA 03/18/25 16:01 IMPRESSION: No intracranial large vessel arterial stenosis or occlusion. IMPRESSION: No significant cervical arterial stenosis or occlusion. REFERENCES: NASCET CRITERIA. The degree of stenosis in the cervical segment of the internal carotid artery is based on NASCET criteria. Normal is no stenosis. Mild is less than 50% stenosis. Moderate is 50-69% stenosis. Severe is 70% to 99% stenosis. Total occlusion is no detectable patent lumen. Discharge Plan Discharge Patient Disposition: Home Clinical Impression: Trigeminal neuropathy, Metabolic acidosis Condition: Stable Prescriptions: New oxcarbazepine 300 mg tablet 300 mg PO BID Qty: 60 0RF Rx Instructions: hold dose for increased sedation gabapentin 300 mg capsule 300 mg PO BEDTIME 30 Days Qty: 30 0RF Rx Instructions: hold dose for increased sedation No Action propranolol 10 mg tablet 10 mg PO BID Qty: 60 6RF quetiapine [Seroquel XR] 150 mg tablet extended release 24 hr 150 mg PO .7 pm Qty: 30 6RF topiramate [Topamax] 25 mg tablet 25 mg PO .noon Qty: 30 6RF paroxetine HCl 30 mg tablet 30 mg PO .6 pm Qty: 30 4RF Rx Instructions: Take one tablet at 6 pm Nexplanon 68 mg implant 1 implant subdermal Q36M sennosides-docusate sodium [Senna with Docusate Sodium] 8.6-50 mg tablet 1 tab-cap PO BID PRN (Reason: constipation) Qty: 14 0RF ondansetron 4 mg tablet,disintegrating 4 mg PO Q6H PRN (Reason: nausea and vomiting) Qty: 14 0RF acetaminophen [Tylenol Extra Strength] 500 mg Tablet 1,000 mg PO QID PRN (Reason: Pain) amoxicillin 875 mg tablet 875 mg PO BID Qty: 20 0RF Discharge Orders: Discharge ED (Routine); Ordered 03/18/25 Ordered By: Smita Link Referrals: Diana Brooks PA [Primary Care Provider, [facility]] Discharge Diet: Soft Mechanical Discharge Activity: Resume usual activity Patient Instructions: Trigeminal Neuralgia (ED), Patient Portal & Jessie Instructions Activity Restrictions/Additional Instructions: Use a soft diet or full liquid diet to avoid pain. See if you can move up your dental appointment as discussed Medications have been sent to the pharmacy. They both can cause increased sedation with patient's Quetiapine. If she has increased sedation, hold gabapentin at night. If she still has increased sedation, hold oxcarbazepine. Return to ED for worsening pain, fevers, redness. It is important to follow-up with your primary care physician regarding today's visit, and continued management of her nerve root pain in her face. Please call tomorrow for an appointment next week. Print Language: Puerto Rican Coding Level of Care Code ED Critical Care Registered Nurse for Ed Fwd Documented by User: NELLY Taylor 03/18/25 17:57 HPI - General Adult 2 General: Chief complaint: General Medical Stated complaint: eye and face pain Time Seen by Provider: 03/18/25 13:49 Related Data Home Medications ?Medication ?Instructions ?Recorded ?Confirmed etonogestrel 68 mg subdermal 1 implant subdermal Q36M 08/26/24 02/19/25 implant (Nexplanon) acetaminophen 500 mg tablet 1,000 mg PO QID PRN Pain 0 10/10/24 02/19/25 (Tylenol Extra Strength) Previous Rx's ?Medication ?Instructions ?Recorded ondansetron 4 mg disintegrating 4 mg PO Q6H PRN nausea and 10/20/24 tablet vomiting #14 tabs sennosides 8.6 mg-docusate sodium 1 tab-cap PO BID PRN constipation 10/20/24 50 mg tablet (Senna with Docusate #14 tabs Sodium) propranolol 10 mg tablet 10 mg PO BID #60 tabs quetiapine 150 mg tablet,extended 150 mg PO .7 pm #30 tabs 10/29/24 release 24 hr (Seroquel XR) topiramate 25 mg tablet (Topamax) 25 mg PO .noon #30 t abs 10/29/24 paroxetine HCl 30 mg tablet 30 mg PO .6 pm #30 tabs amoxicillin 875 mg tablet 875 mg PO BID #20 tabs 02/27 gabapentin 300 mg capsule 300 mg PO BEDTIME 30 days #3 0 caps 03/18/25 oxcarbazepine 300 mg tablet 300 mg PO BID #60 tabs Allergies Allergy/AdvReac Type Severity Reaction Status Date / Time phenazopyridine Allergy unknown Verified 02/19/25 13:16 PFSH ED 2 PFSH: Medical History Psychiatric care Psychiatric care Ringworm of body Unspecified asthma, uncomplicated Moderate intellectual disabilities Generalized anxiety disorder Chronic post-traumatic stress disorder Major depressive disorder, recurrent episode, moderate with anxious distress Surgical History No pertinent past surgical history Social History Smoking and tobacco/nicotine status: never used tobacco/nicotine Second hand smoke exposure: Yes Alcohol intake: never Substance/Drug Use: never Adopted: No Caregiver/support person: Yes Lives independently: No Household members: family Marital status: Single service: No Current occupational status: disabled Current gender identity: Female Physical Exam 2 Neuro: DENIZ COMA SCALE: document GCS findings Deniz coma scale total score: 15 Course 2 Reevaluation(s): Reevaluation #1: Patient is sitting up, pleasant, and does not have any complaints of pain. Vital Signs: Vital signs: Vital Signs Temperature 98.3 F 03/18/25 13:17 Pulse Rate 91 03/18/25 15:07 Respiratory Rate 20 H 03/18/25 13:17 Blood Pressure 120/84 03/18/25 15:07 Pulse Oximetry 97 03/18/25 15:07 Oxygen Delivery Me thod Room Air 03/18/25 15:07 [facility] - General Adult Medical Decision Making Patient is a pleasant 29-year-old intellectually challenged female with complaints of left periorbital pain. She has improved after acetaminophen IV. IV fluids have been given to correct metabolic acidosis and slight elevation of creatinine. CTA of the head and neck is not significant for additional differentials. There is no concern of abscess/infectious in nature. Patient's face is without findings. Patient has poor dentition multiple cavitations. She has a dental appointment in March. I encouraged mom to follow-up sooner. She will be placed on oxcarbazepine, for treatment, and gabapentin for pain. I will defer any titration of these doses to primary since patient is already on Seroquel. Warnings and education given in layman's terms. All questions answered to their satisfaction. Lab Data 03/18/25 15:00 03/18/25 15:[address] 03/18/25 14:06 IMPRESSION: Negative head CT. Head/Neck CTA 03/18/25 16:01 IMPRESSION: No intracranial large vessel arterial stenosis or occlusion. IMPRESSION: No significant cervical arterial stenosis or occlusion. REFERENCES: NASCET CRITERIA. The degree of stenosis in the cervical segment of the internal carotid artery is based on NASCET criteria. Normal is no stenosis. Mild is less than 50% stenosis. Moderate is 50-69% stenosis. Severe is 70% to 99% stenosis. Total occlusion is no detectable patent lumen. Laboratory Results WBC 11.54 10^3/uL (3.29-11.43) H 03/18/25 15:00 RBC 4.84 10^6/uL (3.85-5.65) 03/18/25 15:00 Hgb 13.10 g/dL (11.27-16.99) 03/18/25 15:00 Hct 41.7 % (36-47) 03/18/25 15:00 MCV 86.2 fl (85-98) 03/18/25 15:00 MCH 27.1 pg (27-33) 03/18/25 15:00 MCHC 31.4 g/dL (30-55) 03/18/25 15:00 RDW 14.3 % (12.1-15.1) 03/18/25 15:00 Plt Count 416 10^3/cmm (157-399) H 03/18/25 15:00 MPV 10.7 fL (7.4-10.4) H 03/18/25 15:00 Neut % (Auto) 74.4 % 03/18/25 15:00 Lymph % (Auto) 17.0 % 03/18/25 15:00 Ritchie % (Auto) 4.2 % 03/18/25 15:00 Eos % (Auto) 3.4 % 03/18/25 15:00 Baso % (Auto) 0.8 % 03/18/25 15:00 Neut # (Auto) 8.60 10^3/uL (1.8-7.7) H 03/18/25 15:00 Lymph # (Auto) 2.0 10^3/uL (0.8-4.8) 03/18/25 15:00 Ritchie # (Auto) 0.5 10^3/uL (0.2-0.9) 03/18/25 15:00 Eos # (Auto) 0.4 10^3/uL (0.0-0.8) 03/18/25 15:00 Baso # (Auto) 0.1 10^3/uL (0.0-0.1) 03/18/25 15:00 Nucleated RBC % (auto) 0 % 03/18/25 15:00 Nucleated RBCs # 0.0 /100WBC 03/18/25 15:00 Sodium 140 mmol/L (136-145) 03/18/25 15:00 Potassium 4.7 mmol/L (3.5-5.1) 03/18/25 15:00 Chloride 105 mmol/L (98-107) 03/18/25 15:00 Carbon Dioxide 19 mmol/L (22-29) L 03/18/25 15:00 Anion Gap 20.7 (5-19) H 03/18/25 15:00 BUN 25 mg/dL (6-20) H 03/18/25 15:00 Creatinine 1.1 mg/dL (0.5-0.9) H 03/18/25 15:00 GFR Calculation 59.6 mL/min (90-130) L 03/18/25 15:00 Glucose 94 mg/dL (65-115) 03/18/25 15:00 Calculated Osmolality 294 mOsm/kg (285-295) 03/18/25 15:00 Calcium 9.3 mg/dL (8.5-10.5) 03/18/25 15:00 Total Bilirubin 0.2 mg/dL (0.15-1.2) 03/18/25 15:00 AST 23 U/L (0-32) 03/18/25 15:00 ALT 26 U/L (0-33) 03/18/25 15:00 Alkaline Phosphatase 131 U/L (35-105) H 03/18/25 15:00 C-Reactive Protein 17.1 mg/L (0.0-4.9) H 03/18/25 15:00 Total Protein 9.1 g/dL (6.6-8.7) H 03/18/25 15:00 Albumin 4.3 g/dL (3.5-5.2) 03/18/25 15:00 Globulin 4.8 g/dL (1.3-4.6) H 03/18/25 15:00 TSH 6.77 uIU/mL (0.27-4.20) H 03/18/25 15:00 All radiology interpretation(s) finalized by discharge ED provider radiology interpretation(s): No acute findings EKG Data EKG 1: Interpretation: Normal sinus rhythm, normal axis, good R wave progression, QTc 390 ms. Computer generated interpretation: Head CT 03/18/25 14:06 IMPRESSION: Negative head CT. Head/Neck CTA 03/18/25 16:01 IMPRESSION: No intracranial large vessel arterial stenosis or occlusion. IMPRESSION: No significant cervical arterial stenosis or occlusion. REFERENCES: NASCET CRITERIA. The degree of stenosis in the cervical segment of the internal carotid artery is based on NASCET criteria. Normal is no stenosis. Mild is less than 50% stenosis. Moderate is 50-69% stenosis. Severe is 70% to 99% stenosis. Total occlusion is no detectable patent lumen. Discharge Plan Discharge Patient Disposition: Home Clinical Impression: Trigeminal neuropathy, Metabolic acidosis Condition: Stable Prescriptions: New oxcarbazepine 300 mg tablet 300 mg PO BID Qty: 60 0RF Rx Instructions: hold dose for increased sedation gabapentin 300 mg capsule 300 mg PO BEDTIME 30 Days Qty: 30 0RF Rx Instructions: hold dose for increased sedation No Action propranolol 10 mg tablet 10 mg PO BID Qty: 60 6RF quetiapine [Seroquel XR] 150 mg tablet extended release 24 hr 150 mg PO .7 pm Qty: 30 6RF topiramate [Topamax] 25 mg tablet 25 mg PO .noon Qty: 30 6RF paroxetine HCl 30 mg tablet 30 mg PO .6 pm Qty: 30 4RF Rx Instructions: Take one tablet at 6 pm Nexplanon 68 mg implant 1 implant subdermal Q36M sennosides-docusate sodium [Senna with Docusate Sodium] 8.6-50 mg tablet 1 tab-cap PO BID PRN (Reason: constipation) Qty: 14 0RF ondansetron 4 mg tablet,disintegrating 4 mg PO Q6H PRN (Reason: nausea and vomiting) Qty: 14 0RF acetaminophen [Tylenol Extra Strength] 500 mg Tablet 1,000 mg PO QID PRN (Reason: Pain) amoxicillin 875 mg tablet 875 mg PO BID Qty: 20 0RF Discharge Orders: Discharge ED (Routine); Ordered 03/18/25 Ordered By: Smita Link Referrals: Diana Brooks PA [Primary Care Provider, [facility]] Discharge Diet: Soft Mechanical Discharge Activity: Resume usual activity Patient Instructions: Trigeminal Neuralgia (ED), Patient Portal & Jessie Instructions Activity Restrictions/Additional Instructions: Use a soft diet or full liquid diet to avoid pain. See if you can move up your dental appointment as discussed Medications have been sent to the pharmacy. They both can cause increased sedation with patient's Quetiapine. If she has increased sedation, hold gabapentin at night. If she still has increased sedation, hold oxcarbazepine. Return to ED for worsening pain, fevers, redness. It is important to follow-up with your primary care physician regarding today's visit, and continued management of her nerve root pain in her face. Please call tomorrow for an appointment next week. Print Language: Puerto Rican Coding Level of Care Code ED Critical Care Registered Nurse for Ed Byers
--- NOTE | 2025-03-18 14:06 | CT_ITS ---
WS: [id number] CT HEAD NONCONTRAST HISTORY: VÁSQUEZ TECHNIQUE: Contiguous axial imaging performed through the brain. Bone and soft tissue windows. Sagittal and coronal reformats reviewed. All CT scans at [facility] use at least one of these dose optimization techniques: automated exposure control; mA and/or kV adjustment per patient size (includes targeted exams where dose is matched to clinical indication); or iterative reconstruction. DLP: 1088.25 mGy.cm COMPARISON: None available. No acute intracranial hemorrhage, midline shift or mass effect. No atrophy or prior infarcts or herniation. Ventricles: Normal size with no hydrocephalus. No inferior displacement of the cerebellar tonsils. Paranasal sinuses: Minimal mucoperiosteal thickening in the ethmoid air cells. Mastoid air cells: Well pneumatized. Calvarium and scalp: Skull is intact with no soft tissue edema or swelling. CT/CT head wo con* [id number] IMPRESSION: Negative head CT.
[2025-03-18 14:09] VITALS: BP 132/92
[2025-03-18] MEDS: LORazepam 1 MG/0.5 ML injection 0.5 MG IVP (15:06)
[2025-03-18] MEDS: ketorolac 30 mg/mL INJ IVP (15:06)
[2025-03-18 15:07] VITALS: BP 120/84; PULSE 91; O2SAT 97
[2025-03-18] MEDS: ondansetron 2 mg/ML SDV 2 mL 4 MG IVP (15:07)
[2025-03-18 15:11] LABS: Basophils # 0.1 10^3/uL (0.0-0.1); Basophils % 0.8 %; Eosinophils # 0.4 10^3/uL (0.0-0.8); Eosinophils % 3.4 %; Hematocrit 41.7 % (36-47); Mean Corpuscular HGB Conc 31.4 g/dL (30-55); Mean Corpuscular Hemoglobin 27.1 pg (27-33); Mean Corpuscular Volume 86.2 fl (85-98); Mean Platelet Volume 10.7 fL (7.4-10.4); Monocytes # 0.5 10^3/uL (0.2-0.9); Monocytes % 4.2 %; Neutrophils % 74.4 %; Nucleated Red Blood Cells % 0 %; Platelet Count 416 10^3/cmm (157-399); Red Blood Count 4.84 10^6/uL (3.85-5.65); Red Cell Distribution Width 14.3 % (12.1-15.1); White Blood Count 11.54 10^3/uL (3.29-11.43)
[2025-03-18 15:27] LABS: Alanine Aminotransferase 26 U/L (0-33); Albumin Level 4.3 g/dL (3.5-5.2); Alkaline Phosphatase 131 U/L (35-105); Anion Gap 20.7 (5-19); Aspartate Amino Transferase 23 U/L (0-32); Blood Urea Nitrogen 25 mg/dL (6-20); Calcium 9.3 mg/dL (8.5-10.5); Carbon Dioxide 19 mmol/L (22-29); Chloride 105 mmol/L (98-107); Globulin 4.8 g/dL (1.3-4.6); Glomerular Filtration Rate 59.6 mL/min (90-130); Glucose 94 mg/dL (65-115); Osmolality Calculated 294 mOsm/kg (285-295); Potassium 4.7 mmol/L (3.5-5.1); Sodium 140 mmol/L (136-145); Total Bilirubin 0.2 mg/dL (0.15-1.2); Total Protein 9.1 g/dL (6.6-8.7)
--- NOTE | 2025-03-18 16:01 | CTR_ITS ---
PROCEDURE INFORMATION: Exam: CTA Head With Contrast, Arteriography Exam date and time: 03/18/2025 4:13 PM Age: 29 years old Clinical indication: Other: Left sided neck pain/ facial pain; Additional info: L neck pain/facial pain TECHNIQUE: Imaging protocol: Computed tomographic angiography of the head with contrast. Exam focused on the arteries. 3D rendering (Not supervised by radiologist): MIP and/or 3D reconstructed images were created by the technologist. Radiation optimization: All CT scans at this facility use at least one of these dose optimization techniques: automated exposure control; mA and/or kV adjustment per patient size (includes targeted exams where dose is matched to clinical indication); or iterative reconstruction. Contrast material: OMNI 350; Contrast volume: 100 ml; Contrast route: INTRAVENOUS (IV); COMPARISON: CT head wo con* [id number] 03/18/2025 2:48 PM RADIATION DOSE METRICS: Total DLP (mGy-cm): 442.17 FINDINGS: ANTERIOR CIRCULATION: Right internal carotid artery: No significant stenosis or aneurysm is seen involving the petrous, cavernous, or supraclinoid right internal caroid artery. Right middle cerebral artery: No occlusion or significant stenosis. No aneurysm. Right anterior cerebral artery: No occlusion or significant stenosis. No aneurysm. 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 Left internal carotid artery: No significant stenosis or aneurysm is seen involving the petrous, cavernous, or supraclinoid left internal caroid artery. Left middle cerebral artery: No occlusion or significant stenosis. No aneurysm. Left anterior cerebral artery: No occlusion or significant stenosis. No aneurysm. POSTERIOR CIRCULATION: Right vertebral artery: Intradural right vertebral artery demonstrates no occlusion or significant stenosis. No aneurysm. Left vertebral artery: Intradural left vertebral artery demonstrates no occlusion or significant stenosis. No aneurysm. Basilar artery: No occlusion or significant stenosis. No aneurysm. Right posterior cerebral artery: No occlusion or significant stenosis. No aneurysm. Left posterior cerebral artery: No occlusion or significant stenosis. No aneurysm. PROCEDURE INFORMATION: Exam: CTA Neck With Contrast Exam date and time: 03/18/2025 4:13 PM Age: 29 years old Clinical indication: Other: Left sided neck pain/ facial pain; Additional info: L neck pain/facial pain TECHNIQUE: Imaging protocol: Computed tomographic angiography of the neck with contrast. Exam focused on the cervical segments of the vasculature. 3D rendering (Not supervised by radiologist): MIP and/or 3D reconstructed images were created by the technologist. Radiation optimization: All CT scans at this facility use at least one of these dose optimization techniques: automated exposure control; mA and/or kV adjustment per patient size (includes targeted exams where dose is matched to clinical indication); or iterative reconstruction. Contrast material: OMNI 350; Contrast volume: 100 ml; Contrast route: INTRAVENOUS (IV); COMPARISON: CT head wo [facility]* [id number] 03/18/2025 2:48 PM RADIATION DOSE METRICS: Total DLP (mGy-cm): 442.17 FINDINGS: Right common carotid artery: No stenosis. No dissection or occlusion. Right internal carotid artery: No significant stenosis seen by NASCET criteria. No dissection or occlusion. Right external carotid artery: No occlusion or stenosis of the origin. Left common carotid artery: No stenosis. No dissection or occlusion. Left internal carotid artery: No significant stenosis seen by NASCET criteria. No dissection or occlusion. Left external carotid artery: No occlusion or stenosis of the origin. Right vertebral artery: No cervical vertebral artery stenosis. No dissection or occlusion. Left vertebral artery: No cervical vertebral artery stenosis. No dissection or occlusion. Soft tissues: Visualized soft tissues of the neck are unremarkable. Bones/joints: No acute bony abnormality. CT/CT angio headneck* [id number] IMPRESSION: No intracranial large vessel arterial stenosis or occlusion. IMPRESSION: No significant cervical arterial stenosis or occlusion. REFERENCES: NASCET CRITERIA. The degree of stenosis in the cervical segment of the internal carotid artery is based on NASCET criteria. Normal is no stenosis. Mild is less than 50% stenosis. Moderate is 50-69% stenosis. Severe is 70% to 99% stenosis. Total occlusion is no detectable patent lumen.
--- NOTE | 2025-03-18 16:01 | ECG_ITS ---
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 Measurements Intervals [place] Rate: 105 P: 29 SC: 169 QRS: 67 QRSD: 95 T: 41 QT: 329 QTc: 435 Interpretive Statements SINUS TACHYCARDIA Compared to ECG 07/20/2019 19:25:10 Sinus rhythm no longer present Electronically Signed On 03-18-2025 17:29:54 CDT by Hardeep Fischer M.D. [email or web address]
[2025-03-18] MEDS: iohexol 350 mg/mL 500 mL Btl (per mL) IV (16:16)
[2025-03-18 17:13] LABS: C Reactive Protein 17.1 mg/L (0.0-4.9); Thyroid Stimulating Hormone 6.77 uIU/mL (0.27-4.20)
[2025-03-18] MEDS: sodium chloride 0.9% 1,000 ML 999 ML IV (17:15)
[2025-03-18] MEDS: dexamethasone 4 mg/mL INJ 8 MG IVP (17:17)
[2025-03-18] MEDS: acetaminophen 1,000 MG/100 ML PIGGYBACK 400 MG IV (17:18)
[2025-03-18 18:11] VITALS: BP 136/85; PULSE 99; O2SAT 97
== END 2025-03-18 18:12 | disposition home or self-care (01) ==
PROVIDERS: Emergency Provider Physician Assistant; PCP Physician Assistant
DX: G50.8 Other disorders of trigeminal nerve (principal); E87.20 Acidosis, unspecified
CPT/HCPCS: 36415; 70450; 70496; 70498; 80053; 84443; 85025; 86140; 93005; 96365; 96375; 99285; J0131; J1100; J1885; J2060; J2405; J7030

== ENCOUNTER → 2025-08-15 15:40 | Outpatient (BNVA) | payer MEDICAID, SELFPAY | PROVIDERS: PCP Physician Assistant; Visit Provider Nurse Practitioner Women's Health | DX: Z01.89 Encounter for other specified special examinations (principal); R30.0 Dysuria | CPT/HCPCS: 87086 ==

== ENCOUNTER 2025-09-10 22:29 | Emergency (ER) | payer MEDICAID, SELFPAY ==
[2025-09-10 22:31] VITALS: BP 123/69; PULSE 95; RESP 16; TEMP 36.7; O2SAT 97; BMI 33.3
--- OUTSIDE RECORDS SUMMARY | 2025-09-10 22:36 | XMS_ITS | Data Portability ---
Author Organization ADAMARIS Byrd [facility] Address [address] [address] Care Team Providers Care Dope Sprayer Name Role Phone DARCY DOW Primary Care Provider Unavailabl e Assessment No assessment recorded. Plan of Treatment Reminders Order Date Submit Date Provider Last Modified By Organization Details Last Modified Time Details Appointments None recorded. Lab urinalysis, dipstick 2024 025 [facility] ([facility]), [address] [place] [address], [address], 14:50:47 culture, urine 2024 025 Renewable Funding [facility], [address] [place] [address], [address], [place], [address], 5 00:10:51 urinalysis, dipstick 2024 025 [facility] ([facility]), [address] [place] [address], [address], 5 16:45:08 urinalysis, complete 2024 025 [place] Jarod Byrd [facility], [address] [place] [address] 1, [place], [address], 5 14:46:35 culture, urine 2024 025 Renewable Funding [facility], [address] [place] [address], [address], [place], [address], 5 22:26:06 urinalysis, dipstick 2023 024 dcrase [facility] ([facility]), [address] [place], [address], 4 16:49:19 culture, urine 2023 024 [place] [facility], [address] [place] [address], [facility] [address], [place], [id number], 4 22:07:36 Referral None recorded. Procedures None recorded. Surgeries None recorded. Imaging None recorded. Medication Orders amoxicillin 875 mg-potassiu m clavulanate 125 mg tablet 2024 025 [id number], [address], [address], [address], 5 05:02:09 chlorhexidi ne gluconate 0.12 % mouthwash 2024 025 [id number], [address], [address], [address], 5 05:01:20 amoxicillin 875 mg-potassiu m clavulanate 125 mg tablet 2024 025 [id number], [address] [facility], [facility] [address], [address], 5 05:02:09 Miralax 17 gram oral powder packet 2024 025 [id number], [address], [facility] [address], [address], 5 12:46:09 ondansetron 4 mg disintegrat ing tablet 2024 025 [facility] #[id number], [address] [facility], [facility] 2, [place], [address], 12:46:01 Macrobid 100 mg capsule 2023 025 [facility], [address], [place], [address], 15:29:49 Patient TargetsNo targets recorded. Patient InstructionsNo instructions recorded. Reason for Referral None Reported. Results Created Date Observation Date Name Description Value Unit Range Abnormal Flag Note LastModifiedBy Organization Detail LastModifiedTime 08/08/2008/09/2024 CULTU RE, URINE , ROUTI NE culture, urine, routine SEE NOTE CULTU RE, URINE , ROUTI NE Micro Numbe r: [id number] Test Statu s: Final Speci men Sourc e: Urine Speci men Quali ty: Adequ ate Resul t: No Growt h Not Available [facility] [address] [place], [address], 08/09/2024 22:07:36 08/08/2008/08/2024 urina lysis , dipst ick Leukocytes Negati ve Not Available [facility] ([facility]) [address] [place], [address], 08/08/2024 15:26:05 08/08/2008/08/2024 urina lysis , dipst ick Nitrite negati ve Not Available [facility] ([facility]) [address] [place], [address], 08/08/2024 15:26:05 08/08/20 24 08/08/2024 urina lysis , dipst ick Urobilinogen .2 Not Available [facility] ([facility]) [address] [place], [address], 08/08/2024 15:26:05 08/08/20 24 08/08/2024 urina lysis , dipst ick Protein 30 Not Available [facility] ([facility]) [address] [place], [address], 08/08/2024 15:26:05 08/08/20 24 08/08/2024 urina lysis , dipst ick pH 6.0 Not Available [facility] ([facility]) [address] [place], [address], 08/08/2024 15:26:05 08/08/2008/08/2024 urina lysis , dipst ick Blood Non-He molyze d: Trace Not Available [facility] ([facility]) [address] [place], [address], 08/08/2024 15:26:05 08/08/20 24 08/08/2024 urina lysis , dipst ick Specific [place] 1.030 Not Available [facility] ( [facility]) [address] [place], [address], 08/08/2024 15:26:05 08/08/20 24 08/08/2024 urina lysis , dipst ick Ketone Negati ve Not Available [facility] ([facility]) [address] [place], [address], 08/08/2024 15:26:05 08/08/20 24 08/08/2024 urina lysis , dipst ick Bilirubin Small Not Available [facility] ([facility]) [address] [place], [address], 08/08/2024 15:26:05 08/08/20 24 08/08/2024 urina lysis , dipst ick Glucose Negati ve Not Available [facility] ([facility]) [address] [place], [address], 08/08/2024 15:26:05 08/08/20 24 08/08/2024 urina lysis , dipst ick Appearance Clear Not Available [facility] ([facility]) [address] [place], [address], 08/08/2024 15:26:05 08/08/20 24 08/08/2024 urina lysis , dipst ick Color Yellow Not Available [facility] ([facility]) [address] [place], [address], 08/08/2024 15:26:05 10/15/19 25 10/15/2024 URINA LYSIS WITH MICRO color YELLOW Not Available [facility] [address] [facility] [address] [facility] 1, [place], [address], 10/15/2024 14:46:35 10/15/19 25 10/15/2024 URINA LYSIS WITH MICRO clarity CLEAR Not Available [facility] [address] [facility] 1, [place], [address], 10/15/2024 14:46:35 10/15/19 25 10/15/2024 URINA LYSIS WITH MICRO glu NEGATI VE Not Available [facility] [address] [facility] [address], [place], [address], 10/15/2024 14:46:35 10/15/19 25 10/15/2024 URINA LYSIS WITH MICRO bili NEGATI VE Not Available [facility] [address] [facility] [address], [place], [address], 10/15/2024 14:46:35 10/15/19 25 10/15/2024 URINA LYSIS WITH MICRO ket NEGATI VE Not Available [facility] [address], [place], [address], 10/15/2024 14:46:35 10/15/19 25 10/15/2024 URINA LYSIS WITH MICRO S.g >1.030 1.005- 1.025 high > Not Available [facility] [address], [place], [address], 10/15/2024 14:46:35 10/15/19 25 10/15/2024 URINA LYSIS WITH MICRO pH 5.0 5.0-7. 0 Not Available [facility] [address], [place], [address], 10/15/2024 14:46:35 10/15/19 25 10/15/2024 URINA LYSIS WITH MICRO pro NEGATI VE Not Available [facility] [address], [place], [address], 10/15/2024 14:46:35 10/15/19 25 10/15/2024 URINA LYSIS WITH MICRO uro 0.2 E.U./D L Not Available [facility] [address], [place], [address], 10/15/2024 14:46:35 10/15/19 25 10/15/2024 URINA LYSIS WITH MICRO nit NEGATI VE Not Available [facility] [address] [facility] [address], [place], [address], 10/15/2024 14:46:35 10/15/19 25 10/15/2024 URINA LYSIS WITH MICRO blo NEGATI VE Not Available [facility] [address], [place], [address], 10/15/2024 14:46:35 10/15/19 25 10/15/2024 URINA LYSIS WITH MICRO kin NEGATI VE Not Available [facility] [address], [place], [address], 10/15/2024 14:46:35 10/15/19 25 10/15/2024 URINA LYSIS WITH MICRO WBC 12-15 Not Available [facility] [address] [facility] 1, [place], [address], 10/15/2024 14:46:35 10/15/19 25 10/15/2024 URINA LYSIS WITH MICRO RBC 12-15 Not Available [facility] [address] [facility] 1, [place], [address], 10/15/2024 14:46:35 10/15/19 25 10/15/2024 URINA LYSIS WITH MICRO epi cells 3-4 Not Available [facility] [address] [facility] 1, [place], [address], 10/15/2024 14:46:35 10/15/19 25 10/15/2024 URINA LYSIS WITH MICRO bacteria 2+ MUCUS THREAD S Not Available [facility]se [facility] [address] [address], [place], [address], 10/15/2024 14:46:35 10/15/19 25 10/15/2024 URINA LYSIS WITH MICRO other NEGATI VE Not Available [facility] [address] [facility] 1, [place], [address], 10/15/2024 14:46:35 10/15/19 25 10/16/2024 CULTU RE, URINE , ROUTI NE culture, urine, routine SEE NOTE CULTU RE, URINE , ROUTI NE Micro Numbe r: [id number] Test Statu s: Final Speci men Sourc e: Urine Speci men Quali ty: Adequ ate Resul t: No Growt h Not Available [employer] [facility] [address], [place], [address], 10/16/2024 22:26:06 10/22/19 25 10/22/2024 urina lysis , dipst ick Leukocytes Negati ve Not Available [facility] ([facility]) [address] [place], [address], 10/22/2024 16:35:43 10/22/19 25 10/22/2024 urina lysis , dipst ick Nitrite negati ve Not Available [facility] ([facility]) [address] [place], [address], 10/22/2024 16:35:43 10/22/19 25 10/22/2024 urina lysis , dipst ick Urobilinogen .2 Not Available [facility] ([facility]) [address] [place], [address], 10/22/2024 16:35:43 10/22/19 25 10/22/2024 urina lysis , dipst ick Protein 30 Not Available [facility] ([facility]) [address] [place], [address], 10/22/2024 16:35:43 10/22/19 25 10/22/2024 urina lysis , dipst ick pH 5.5 Not Available [facility] ([facility]) [address] [place], [address], 10/22/2024 16:35:43 10/22/19 25 10/22/2024 urina lysis , dipst ick Blood Large Not Available [facility] ([facility]) [address] [place], [address], 10/22/2024 16:35:43 10/22/19 25 10/22/2024 urina lysis , dipst ick Specific [place] 1.030 Not Available [facility] ( [facility]) [address] [place], [address], 10/22/2024 16:35:43 10/22/19 25 10/22/2024 urina lysis , dipst ick Ketone Large (160) Not Available [facility] ([facility]) [address] [place], [address], 10/22/2024 16:35:43 10/22/19 25 10/22/2024 urina lysis , dipst ick Bilirubin Modera te Not Available [facility] ([facility]) [address] [place], [address], 10/22/2024 16:35:43 10/22/19 25 10/22/2024 urina lysis , dipst ick Glucose Negati ve Not Available [facility] ([facility]) [address] [place], [address], 10/22/2024 16:35:43 10/22/19 25 10/22/2024 urina lysis , dipst ick Appearance Clear Not Available [facility] [address] [place], [address], 10/22/2024 16:35:43 10/22/19 25 10/22/2024 urina lysis , dipst ick Color Dark Yellow Not Available [facility] ([facility]) [address] [place], [address], 10/22/2024 16:35:43 06/16/20 25 06/17/2025 CULTU RE, URINE , ROUTI NE culture, urine, routine SEE NOTE CULTU RE, URINE , ROUTI NE Micro Numbe r: [id number] Test Statu s: Final Speci men Sourc e: Urine Speci men Quali ty: Adequ ate Resul t: Mixed genit al wale isola calderon. These super ficia l bacte rani are not indic ative of a urina ry tract infec tion. No furth er organ ism ident ifica tion is warra nted on this speci men. If clini ghazala indic ated, recol lect clean -catc h, mid-s tream urine and trans pam immed iatel y to Urine Cultu re Trans port Tube. Not Available [facility] [address], [place], [address], 06/18/2025 00:10:51 06/16/2006/16/2025 urina lysis , dipst ick Leukocytes Trace Not Available [facility] ([facility]) [address] [place] [address], [address], 06/16/2025 14:39:57 06/16/20 25 06/16/2025 urina lysis , dipst ick Nitrite positi ve Not Available [facility] ([facility]) [address] [place] [address], [address], 06/16/2025 14:39:57 06/16/20 25 06/16/2025 urina lysis , dipst ick Urobilinogen 1 Not Available [facility] ([facility]) [address] [place] [address], [address], 06/16/2025 14:39:57 06/16/20 25 06/16/2025 urina lysis , dipst ick Protein 30 Not Available [facility] ([facility]) [address] [place] [address], [address], 06/16/2025 14:39:57 06/16/20 25 06/16/2025 urina lysis , dipst ick pH 5.0 Not Available [facility] ([facility]) [address] [place] [address], [address], 06/16/2025 14:39:57 06/16/20 25 06/16/2025 urina lysis , dipst ick Blood Non-He molyze d: Trace Not Available [facility] ([facility]) [address] [place] [address], [address], 06/16/2025 14:39:57 06/16/20 25 06/16/2025 urina lysis , dipst ick Specific [place] 1.025 Not Available [facility] ( [facility]) [address] [place], [address], 06/16/2025 14:39:57 06/16/20 25 06/16/2025 urina lysis , dipst ick Ketone Trace Not Available [facility] ([facility]) [address] [place], [address], 06/16/2025 14:39:57 06/16/20 25 06/16/2025 urina lysis , dipst ick Bilirubin Negati ve Not Available [facility] ([facility]) [address] [place], [address], 06/16/2025 14:39:57 06/16/20 25 06/16/2025 urina lysis , dipst ick Glucose 100 Not Available [facility] ([facility]) [address] [place], [address], 06/16/2025 14:39:57 06/16/20 25 06/16/2025 urina lysis , dipst ick Appearance Clear Not Available [facility] ([facility]) [address] [place], [address], 06/16/2025 14:39:57 06/16/2006/16/2025 urina lysis , dipst ick Color Starr Not Available [facility] ([facility]) [address] [place], [address], 06/16/2025 14:39:57 Result Notes None recorded. Problems Name Problem SNOMED Code Status Onset Date Resolution Date Notes Provider Name and Address Organization Details Recorded Time Contracept ion care management Active 2022 CONTRACEPT ROYA MANAGEMENT ; Recorded 12/02/2022 2:08PM by Cheryl Leone, Office Visit; Promoted; acuity set as *; [facility] 12:46:57 Asthma 192951534 Active 2022 ASTHMA, ACUTE; Recorded 12/02/2022 2:08PM by Cheryl Leone, Office Visit; Promoted; acuity set as *; [facility] 12:46:52 Mixed anxiety and depressive disorder 960628281 Active 2024 MITCHELL MACIAS [facility] 12:47:01 Toothache 31082996 Active 2024 [facility] 12:47:07 Problem Notes None recorded. Medical Equipment None Reported. Allergies No known drug allergies Medications Name Sig Start Date Stop Date Status Note LastModified by Organization Details LastModified Time Miralax 17 gram oral powder packet Take 1 packet every day by oral route for 30 days. 02/26 completed Not Available Not Available Not Available quetiapin e 25 mg tablet at bedtime [...] Available topiramat e 25 mg tablet TAKE BY MOUTH 1 TABLET DAILY AT NOON active Not Available Not Available No t Available oxcarbaze pine 300 mg tablet TAKE 1 TABLET BY MOUTH TWICE DAILY (HOLD DOSE FOR INCREASE D SEDATION ) active Not Available Not Available No t Available sulfameth oxazole 800 mg-trimet hoprim 160 [...] TAKE 1 TABLET BY MOUTH TWICE DAILY active Not Available Not Available No t Available amoxicill in 875 mg tablet TAKE ONE TABLET BY MOUTH TWICE DAILY 06/16 completed Not Available Not Available Not Available trazodone 100 mg tablet TAKE ONE TABLET AT BEDTIME NEEDED FOR SLEEP 02/07 completed Not Available Not Available Not Available cephalexi n 500 mg capsule TAKE ONE CAPSULE BY MOUTH THREE TIMES DAILY for SEVEN DAYS 06/16 completed Not Available Not Available Not Available paroxetin e 30 mg tablet TAKE 1 TABLET BY MOUTH ONCE DAILY AT 6 PM active Not Available Not Available No t Available paroxetin e 20 mg tablet TAKE 1 TABLET BY MOUTH ONCE DAILY AT 6PM active Not Available Not Available No t Available neomycin- polymyxin -dexameth 3.5 mg/mL-10, 000 unit/mL-0 .1% eye drops instill TWO DROPS into THE ear(s) TWICE DAILY for SEVEN DAYS 06/16 completed Not Available Not Available Not Available buspirone 10 mg tablet TAKE 1 TABLET BY MOUTH EVERY MORNING 02/07 completed Not Available Not Available Not Available gabapenti n 300 mg capsule TAKE 1 CAPSULE BY MOUTH AT BEDTIME FOR 30 DAYS (HOLD FOR INCREASE D SEDATION ) active Not Available Not Available No t Available omeprazol e 20 mg capsule,d elayed [...] e 50 mcg/actua tion nasal spray,mane pension [place] 2 sprays every day by intranas al route. 02/07 completed Not Available Not Available Not Available sertralin e 50 mg tablet TAKE 1 TABLET BY MOUTH EVERY DAY IN THE MORNING 02/07 completed Not Available Not Available Not Available amoxicill in 875 mg-potass ium clavulana te 125 mg tablet Take 1 tablet twice a day by oral route for 7 days. 06/30 completed Not Available Not Available Not Available [...] Available No t Available quetiapin e ER 200 mg tablet,ex tended release 24 hr TAKE 1 TABLET BY MOUTH ONCE DAILY AT 7PM active Not Available Not Available No t Available quetiapin e ER 150 mg tablet,ex tended release 24 hr TAKE 1 TABLET BY MOUTH ONCE DAILY AT 7PM active Not Available Not Available No t Available Vitals Date Recorded Body height Body mass index (BMI) Body weight Oxygen saturation Heart rate Respiratory rate Body temperature Systolic And Diastolic Provider Name and Address Organization Details Last Updated DateTime 5 160.02 cm 37.2 kg/m2 51387.4 g 99 % 80 /min 20 /min 98 [degF] 138/80 mm[Hg] RICHARD BOYD [facility] 5 12:40:49 Date Recorded Body height Body mass index (BMI) Body weight Oxygen saturation Heart rate Body temperature Systolic And Diastolic Provider Name and Address Organization Details Last Updated DateTime 5 160.02 cm 36.8 kg/m2 29540.2 1 g 97 % 63 /min 97.8 [degF] 130/98 mm[Hg] Li Wynn [facility] 5 16:13:28 Date Recorded Body height Body mass index (BMI) Body weight Body temperature Oxygen saturation Heart rate Systolic And Diastolic Provider Name and Address Organization Details Last Updated DateTime 5 160.02 cm 39.3 kg/m2 317548. 51 g 97.5 [degF] 99 % 86 /min 100/65 mm[Hg] MITCHELL MACIAS [facility] 5 12:45:20 Date Recorded Body height Body mass index (BMI) Body weight Oxygen saturation Heart rate Body temperature Systolic And Diastolic Provider Name and Address Organization Details Last Updated DateTime 5 160.02 cm 40.6 kg/m2 991411. 75 g 98 % 86 /min 98.6 [degF] 132/64 mm[Hg] Li Wynn [facility] 5 14:26:49 Date Recorded Body height Body mass index (BMI) Body weight Oxygen saturation Heart rate Respiratory rate Body temperature Systolic And Diastolic Provider Name and Address Organization Details Last Updated DateTime 4 160.02 cm 37.6 kg/m2 67157.5 8 g 99 % 87 /min 16 /min 98.2 [degF] 140/90 mm[Hg] Jaja Gan [facility] 4 15:27:58 Social History Question Answer Notes LastModified by Organizat ion Details LastModified Time Tobacco Smoking Status Never Smoker Destiny martinez [facility] 01/03/2024 15:20:48 What Was The Date Of Your Most Recent Tobacco Screening? 06/09/2025 [email or web address] Information not available 06/16/2025 Sex: Unknown Functional Status None recorded. Mental Status None recorded. Family History Nothing Reported. Medical History No medical history recorded. Gynecological HistoryNo gynecological history recorded. Obstetrics History GPAL:G 0 P 0 0 0 0 Past Encounters Encounter ID Performer Location Encounter Start Date Encounter Closed Date Diagnosis/Indication Diagnosis SNOMED-CT Code Diagnosis ICD10 Code Diagnosis IMO Codes Diagnosis Note [id number] LUIS ALBERTO CORDOBA NP [facility] ([facility]) [address] [place] [address] 04/10/2023 10:43:35 04/10/2023 15:20:45 Exacerbation of intermittent asthma 660035778 J45.21 Discussed to take steroid and albuterol [...] concerns.P atient verbalized understand ing of plan [id number] AMBROSE WALKER [facility] ([facility]) [address] [place], [place] [address] 06/10/2023 13:57:31 06/10/2023 15:43:50 Cough 34251529 R05.9 Viral uppe r respiratory tract infection 855472787 J06.9 Use antihistam edirdre for symptomati c relief. Patient advised to increase po fluids. [id number] KEI MARI [facility] ([facility]) [address] [place] [address] 11/15/2023 14:16:26 11/15/2023 15:19:48 Dysuria 14411061 R30.0 Acute urin akilah tract infection 025646218 N39.0 Start Macrobid BID x7 days, take as prescribed . Encouraged to increase water intake and decrease caffeine and sugary drinks. If still having symptoms after completion of antibiotic s, recommend a urine re-check. Urine was sent for culture. Will call with culture results. If worsening condition or no improvemen t in 3-5 days, recommend returning for re-evaluat ion. Patient verbalized understand ing. [id number] AMBROSE REAL [facility] ([facility]) [address] [place] [address] 01/03/2024 15:14:48 01/03/2024 15:28:03 Toothache 90648471 K08.89 Will start on antibiotic to cover for possible dental infection. Discussed to f/u 1 in week if symptoms persist. [id number] DARYC DOW PA-C [facility] ([facility]) [address] [place] [address] 02/08/2024 14:23:15 02/08/2024 18:53:02 Gastroesophageal reflux disease 375943612 K21.9 Mild inter mittent asthma 832216316 J45.20 [id number] AMBROSE REAL [facility] ([facility]) [address] [place], [place] [address] 03/15/2024 17:19:09 03/15/2024 18:31:56 Infection of tooth 772892446 K04.7 Discussed use of antibiotic for full course. May take tylenol/mo jordy for discomfort .Rinse mouth with mouthwash or saltwater rinses after eating/dri nking to keep the mouth clean.Call dentist today to schedule f/u appt.F/u sooner if you develop difficulty swallowing , fever, increased swelling. [id number] Thang Zaragoza DO [facility] ([facility]) [address] [place] [address] 06/26/2024 12:29:54 06/26/2024 14:07:07 Dysuria 89392888 R30.0 UTI, counseled Augmentin for 10 days. Infection of tooth 50761 8007 K04.7 Augmentin, counseled to let the Dentist know we have treated with abx, keep upcoming dental appt. [id number] Adiel Isaac MD [facility] ([facility]) [address] [place] [address] 08/08/2024 15:22:35 08/12/2024 10:44:28 Dysuria 19795724 R30.0 Acute urin akilah tract infection 029875948 N39.0 UA showed trace blood and given her symptoms we will go ahead and start treatment for UTI. Ultrasound is pending. Patient was encouraged to increase fluid intake. [id number] DARCY DOW PA-C [facility] ([facility]) [address] [place] [address] 10/15/2024 11:41:10 10/16/2024 11:33:32 Dysuria 79466810 R30.0 her er records reviewed and neg culture from last week.Will recheck today since she continues with burningGAv e her a tube of vaseline here and encourged her to use for barrier cream and moisturize since she seems not have more constant burning [id number] KENYETTA REALP [facility] ([facility]) [address] [place] [address] 10/22/2024 15:22:33 10/25/2024 06:46:07 Abdominal pain 15885903 R10.9 Urine dip normal today. Constipation 76352431 K5 9.00 Discussed use of Miralax daily until pt starts having stools. No signs of acute abd today. Pt states she gets nauseated sometimes but no vomiting so zofran sent in. [id number] Tena Salgado MD [facility] [facility]) [address] [place] [address] 02/26/2025 12:33:30 02/27/2025 16:11:27 Ulcer of mouth 01007114 K12.1 996875 OTC anbesol prn. Acute secr etory otitis media [id number] H65.191 [id number] PHYLLIS NUNEZ DOG WALKER [facility] ([facility]) [address] [place] [address] 5 06/16/2025 14:19:24 06/16/2025 15:06:14 Dysuria 01120292 R30.0 34909 Acute urin akilah tract infection [id number] N39.0 713461 Discussed to take antibiotic as prescribed until completedU rine culture ordered - will notify of any resultsEdu cated patient on increasing PO fluids of water, decreasing caffeine (coffee) and sugary drinks. May take OTC AZO for 1-2 days as box directs for burning sensation. Discussed if developmen t of abdominal pain, flank pain, fever, vomiting, worsening symptoms return to walk-in, PCP or ED for re-evaluat ion. Return to clinic if any changes, any worsening, any concernsPa tient verbalized understand ing of plan. Toothache [id number] K08.8 9 [id number] Advised patient to schedule appt with dentist as soon as possible. May use otc tylenol or ibuprofen, orajel as needed for pain. RTC with any new or worsening symptoms. Health Concerns Section Related Observation LastModified by Organization Detai ls LastModified Time None Recorded Concern Status LastModified by Organization Details LastModified Time None Recorded Advance Directives Directive None Recorded Payers Insurance Date Sequence Insurance Name Policy Number Policy Flores Covered Member ID Flores Member ID Guarantor Name 06/16/2025 1 [place] Holiday N Daren [id number] Holiday N Daren 06/16/2025 [place] [facility] ([facility] [place]) Holiday N Daren [id number] Holiday N Daren Notes Date Note Type Note Provider Name and Address Organization Details Recorded Time 08/08/2024 text/html Lower Urinary Tr act Symptoms (LUTS)Reported by Patient walk in patientpatient is here today for burning when urinating that started a couple of days ago. Patient also admits to increased urgency and frequency of urination. Adiel Isaac MD [address] [place] [address], [phone], [facility] 08/09/2024 12:05:55 10/15/2024 text/html Upper Respirator y SymptomsReported by PatientUpper Respiratory SymptomsFor quality, patient reportscongested,dry cough, andnasal discharge. For associated symptoms, patient reportsshortness of breathbut reportsno chest pain. For location, patient reportschest. For severity, patient reportsmoderate. For duration, patient reportssymptoms lasting over 2 weeks. For onset/timing, patient reportssudden. For context, patient reportsno sick contacts,no foreign travel, andnon-smoker. For alleviating factors, patient reportsanalgesicsandan tihistamines. Vaginal DrynessReported by PatientHPIFor location, patient reportsvagina. For quality, patient reportsdry. For severity, patient reportsmoderate. For duration, patient reportsintermittent. For onset/timing, patient reports1-7 days. For modifying factors, patient reportsnothing gives reliefandnothing makes it worse. For associated symptoms, patient reportsno vaginal discharge,no vaginal atrophy, and(normal) depression. For context, (doesn't have periods with implant). went to ER last week. normal work upOn amoxil already for dental pain DARCY DOW PA-C [address] [place], [address], [facility] 10/26/2024 12:01:27 10/22/2024 text/html ROS as noted in the HPI walk inPt presents with c/o abd pain. Mother states has been evaluated in the ER twice this week for the abd pain. Pt was dx'd with constipation and given Miralax. Pt states she took the miralax one day, no bowel movement, and has not taken any other meds. Denies vomiting, diarrhea, or fever. No urinary symptoms. AMBROSE REAL [address] [place], [address], [facility] 10/23/2024 09:43:05 02/26/2025 text/html Ear Pain Brief HPIReported by PatientHPIFor quality, patient reportsaching pain,sharp pain, anditching. For location, patient reportsright. For severity, patient reportsno fever.ROS as noted in the HPI She has very painful sores in the back part of her left mouth ever since they pulled her left front tooth She has been complaining of right ear pain Tena Salgado MD [address] [place], [address], [facility] 02/26/2025 18:37:22 06/16/2025 text/html ROS as noted in the HPI walk inx4 days acid reflux. Patient states that she has been having heart burn after drinking fruit punch additive to her water recently. Denies any eating of spicy foods or troubles with reflux at other times.x1week pain in lower left jaw- broke tooth. Hx of significant dental caries. States that she has an appt with dentist 07/01 for exam. Has not been using anything for pain. WOrse with eating. Patient also complains of burning with urination for the last 1-2 days. Has used AZO x 1 for symptoms. AMBROSE WALKER [address] [place], [address], [facility] 06/16/2025 14:56:54 OBGyn Episode No OBEpisode recorded.
--- OUTSIDE RECORDS SUMMARY | 2025-09-10 22:36 | XMS_ITS | Continuity of Care Document ---
Author Organization ADAMARIS - Jarod De León [facility] Gm Purdy, [facility] ([facility]) Address [address] [place] [address] Care Team Providers Care Tube Rebuilder Name Role Phone DARCY DOW Primary Care Provider Unavailabl e Assessment No assessment recorded. Plan of Treatment Reminders Order Date Submit Date Provider Last Modified By Organization Details Last Modified Time Details Appointments None recorded. Lab urinalysis, dipstick 2024 025 [email or web address] ([facility]), [address] [place], [address], 5 14:50:47 culture, urine 2024 025 [employer] [facility], [address] [place] [address], [facility] [address] [place], [address], 5 00:10:51 Referral None recorded. Procedures None recorded. Surgeries None recorded. Imaging None recorded. Medication Orders amoxicillin 875 mg-potassiu m clavulanate 125 mg tablet 2024 025 [employer] [id number], [address], [address], 05:02:09 Patient TargetsNo targets recorded. Patient InstructionsNo instructions recorded. Reason for Referral None Reported. Results Created Date Observation Date Name Description Value Unit Range Abnormal Flag Note LastModifiedBy Organization Detail LastModifiedTime 06/16/2006/17/2025 CULTU RE, URINE , ROUTI NE culture, urine, routine SEE NOTE CULTU RE, URINE , ROUTI NE Micro Numbe r: [id number] Test Statu s: Final Speci men [...] Cultu re Trans port Tube. Not Available [facility] [address] [place], [address], 06/18/2025 00:10:51 06/16/2006/16/2025 urina lysis , dipst ick Leukocytes Trace Not Available [facility] ( [facility]) [address] [place] [address], [phone], 06/16/2025 14:39:57 06/16/20 25 06/16/2025 urina lysis , dipst ick Nitrite positi ve Not Available [facility] ([facility]) [address] [place] [address], [phone], 06/16/2025 14:39:57 06/16/20 25 06/16/2025 urina lysis , dipst ick Urobilinogen 1 Not Available [facility] ([facility]) [address] [place] [address], [phone], 06/16/2025 14:39:57 06/16/20 25 06/16/2025 urina lysis , dipst ick Protein 30 Not Available [facility] ([facility]) [address] [place] [address], [phone], 06/16/2025 14:39:57 06/16/20 25 06/16/2025 urina lysis , dipst ick pH 5.0 Not Available [facility] ([facility]) [address] [place], [address], 06/16/2025 14:39:57 06/16/20 25 06/16/2025 urina lysis , dipst ick Blood Non-He molyze d: Trace Not Available [facility] ([facility]) [address] [place], [address], 06/16/2025 14:39:57 06/16/20 25 06/16/2025 urina lysis , dipst ick Specific [place] 1.025 Not Available [facility] ( [facility]) [address] [place], [address], 06/16/2025 14:39:57 06/16/20 25 06/16/2025 urina lysis , dipst ick Ketone Trace Not Available [facility] ([facility]) [address] [place], [address], 06/16/2025 14:39:57 06/16/20 25 06/16/2025 urina lysis , dipst ick Bilirubin Negati ve Not Available [facility] ([facility]) [address] [place], [address], 06/16/2025 14:39:57 06/16/20 25 06/16/2025 urina lysis , dipst ick Glucose 100 Not Available [facility] ([facility]) [address] [place], [address], 06/16/2025 14:39:57 06/16/20 25 06/16/2025 urina lysis , dipst ick Appearance Clear Not Available [facility] ([facility]) [address] [place], [address], 06/16/2025 14:39:57 06/16/20 25 06/16/2025 urina lysis , dipst ick Color Nye Not Available [facility] ([facility]) [address] [place], [address], 06/16/2025 14:39:57 Result Notes None recorded. Problems Name Problem SNOMED Code Status Onset Date Resolution Date Notes Provider Name and Address Organization Details Recorded Time Contracept ion care management Active 2022 CONTRACEPT ROYA MANAGEMENT ; Recorded 12/02/2022 2:08PM by Cheryl Leone, Office Visit; Promoted; acuity set as *; MITCHELL martinez [facility] 5 12:46:57 Asthma 303366465 Active 2022 ASTHMA, ACUTE; Recorded 12/02/2022 2:08PM by Cheryl Leone, Office Visit; Promoted; acuity set as *; MITCHELL martinez [facility] 5 12:46:52 Mixed anxiety and depressive disorder 275801802 Active 2024 MITCHELL martinez [facility] 5 12:47:01 Toothache 04141135 Active 2024 MITCHELL martinez [facility] 5 12:47:07 Problem Notes None recorded. [...] e 50 mcg/actua tion nasal spray,mane pension Monona 2 sprays every day by intranas al [...] and Address Organization Details Last Updated DateTime 160.02 cm 40.6 kg/m2 274578. 75 g 98 % 86 /min 98.6 [degF] 132/64 mm[Hg] Li Tianna [facility] 14:26:49 Social History Question Answer Notes LastModified by Organizat ion Details LastModified Time Tobacco Smoking Status Never Smoker Destiny martinez [facility] 01/03/2024 15:20:48 What Was The [...] ICD10 Code Diagnosis IMO Codes Diagnosis Note [id number] AMBROSE WALKER [facility] ([facility]) [address] [place] [address] 06/16/2025 14:19:24 06/16/2025 15:06:14 Dysuria 86276919 R30.0 32999 Acute urin akilah tract infection 198610658 N39.0 120099 Discussed to take antibiotic as prescribed until [...] tient verbalized understand ing of plan. Toothache 41518662 K08.8 9 [id number] Advised patient to schedule appt with dentist as soon as possible. May use otc tylenol or ibuprofen, orajel as needed for pain. RTC with any new or worsening symptoms. Health Concerns Section Related Observation LastModified by Organization Detai ls LastModified Time None Recorded Concern Status LastModified by Organization Details LastModified Time None Recorded Payers Encounter Date Sequence Insurance Name Policy Number Policy Flores Covered Member ID Flores Member ID Guarantor Name 06/16/2025 1 [place] Holiday N Daren [id number] Holiday N Daren Notes Date Note Type Note Provider Name and Address Organization Details Recorded Time 06/16/2025 text/html ROS as noted in the [...] x 1 for symptoms. AMBROSE WALKER [address] [place], [address], [facility]m 06/16/2025 14:56:54 OBGyn Episode No OBEpisode recorded.
--- NOTE | 2025-09-10 22:50 | CTR_ITS ---
PROCEDURE INFORMATION: Exam: CT Abdomen And Pelvis With Contrast Exam date and time: 09/10/2025 11:56 PM Age: 30 years old Clinical indication: Constipation and nausea and vomiting; Additional info: Recently started tirzeptide, constipation, nv TECHNIQUE: Imaging protocol: Computed tomography of the abdomen and pelvis with contrast. Radiation optimization: All CT scans at this facility use at least one of these dose optimization techniques: automated exposure control; mA and/or kV adjustment per patient size (includes targeted exams where dose is matched to clinical indication); or iterative reconstruction. Contrast material: OMNI 350; Contrast volume: 100 ml; Contrast route: INTRAVENOUS (IV); COMPARISON: CT kidney stone [id number] 10/19/2024 1:28 AM RADIATION DOSE METRICS: Total DLP (mGy-cm): 1160.63 FINDINGS: Liver: Hepatic steatosis. Gallbladder and biliary ducts: Normal. No calcified stones. No ductal dilation. Pancreas: Normal. No ductal dilation. Spleen: Normal. No splenomegaly. Adrenal glands: Normal. No mass. Kidneys and ureters: No hydronephrosis or delayed nephrogram. Stomach and bowel: Diverticulosis, without acute diverticulitis. No small bowel obstruction. No free air. Appendix: No evidence of appendicitis. Intraperitoneal space: See Stomach and bowel finding. Vasculature: Unremarkable. No abdominal aortic aneurysm. Lymph nodes: Unremarkable. No enlarged lymph nodes. Urinary bladder: Unremarkable as visualized. Reproductive: Arcuate uterus. Bones/joints: Unremarkable. No acute fracture. Soft tissues: Unremarkable. CT/CT abdomen pelvis w con* [id number] IMPRESSION: 1. Diverticulosis, without acute diverticulitis. No small bowel obstruction. No free air. 2. No hydronephrosis or delayed nephrogram. 3. Hepatic steatosis.
[2025-09-10 23:03] LABS: Hematocrit 37.7 % (36-47); Hemoglobin 12.00 g/dL (11.27-16.99); Mean Corpuscular HGB Conc 31.8 g/dL (30-55); Mean Corpuscular Hemoglobin 27.7 pg (27-33); Mean Corpuscular Volume 87.1 fl (85-98); Nucleated Red Blood Cells % 0 %; Platelet Count 404 10^3/cmm (157-399); Red Blood Count 4.33 10^6/uL (3.85-5.65); White Blood Count 13.49 10^3/uL (3.29-11.43)
--- NOTE | 2025-09-10 23:15 | W.ED.ABDPA2 ---
HPI - Abdominal Pain General: Chief Complaint: Abdominal Pain Stated Complaint: abdomen pain Time Seen by Provider: 09/10/25 22:30 History of Present Illness: Patient is a 30-year-old female with past medical history of asthma, depression who presents to the ED with abdominal pain and vomiting. Patient states this has been occurring since this morning, no recent suspicious food intake, family members with no similar symptoms, has had a bloating sensation with a couple episodes of nausea vomiting. No abdominal surgical history, no history of GI issues. She was started on tirzepatide earlier this week for weight loss. She has not had diarrhea or constipation, she has a Nexplanon for contraception. She denies any fevers, chills, diaphoresis, shortness of breath, cough, urinary changes. Related Data Home Medications ?Medication ?Instructions ?Recorded ?Confirmed etonogestrel 68 mg subdermal 1 implant subdermal Q36M 08/26/24 08/15/25 implant (Nexplanon) acetaminophen 500 mg tablet 1,000 mg PO QID PRN Pain 10/10/24 08/15/25 (Tylenol Extra Strength) Previous Rx's ?Medication ?Instructions ?Recorded sennosides 8.6 mg-docusate sodium 1 tab-cap PO BID PRN constipation 10/20/24 50 mg tablet (Senna with Docusate #14 tabs Sodium) paroxetine HCl 30 mg tablet 30 mg PO .6 pm #30 tabs 06/03/25 propranolol 10 mg tablet 10 mg PO BID #60 tabs 06/03/25 topiramate 25 mg tablet (Topamax) 25 mg PO .noon #30 tabs 06/03/25 quetiapine 200 mg tablet,extended 200 mg PO .7 pm #30 tabs 07/22/25 release 24 hr cephalexin 500 mg capsule 500 mg PO BID #14 caps 08/15/25 ondansetron 4 mg disintegrating 4 mg PO Q8H PRN nausea and 09/11/25 tablet vomiting #14 tabs sulfamethoxazole 800 1 tab PO BID #10 tabs 09/11/25 mg-trimethoprim 160 mg tablet (Bactrim DS) Allergies Allergy/AdvReac Type Severity Reaction Status Date / Time phenazopyridine Allergy unknown Verified 09/10/25 22:36 Review of Systems General: Reports: 10 or more systems reviewed and unremarkable except in HPI and below PFSH ED PFSH: Medical History (Updated 09/11/25 @ 00:32 by Daniel Hermosillo DO) Psychiatric care Psychiatric care Ringworm of body Unspecified asthma, uncomplicated Moderate intellectual disabilities Generalized anxiety disorder Chronic post-traumatic stress disorder Major depressive disorder, recurrent episode, moderate with anxious distress Surgical History No pertinent past surgical history Social History Smoking and tobacco/nicotine status: never used tobacco/nicotine Second hand smoke exposure: Yes Alcohol intake: never Substance/Drug Use: never Adopted: No Caregiver/support person: Yes Lives independently: No Household members: family Marital status: Single service: No Current occupational status: disabled Current gender identity: Female Physical Exam Narrative: EXAM NARRATIVE: Patient overall well-appearing, afebrile, vital stable on arrival, no acute distress. Abdomen mildly distended but soft, mild generalized tenderness throughout with no localizing or peritonitic signs, no overlying skin changes, bowel sounds decreased, no CVA tenderness. Breathing comfortably on room air, saturating well, clear bilateral breath sounds with no wheezes or crackles, normal sinus rhythm with no murmurs, no leg swelling, good cap refill, 2+ pulses throughout. GCS 15, mild cognitive delay, able to follow commands and answer questions appropriately, spontaneously and symmetrically moving all 4 extremities Course Vital Signs: Vital signs: Vital Signs Temperature 98.1 F 09/10/25 22:31 Pulse Rate 103 H 09/11/25 00:00 Respiratory Rate 16 09/10/25 22:31 Blood Pressure 140/95 09/11/25 00:00 Pulse Oximetry 98 09/11/25 00:00 Oxygen Delivery Me thod Room Air 09/11/25 00:00 MDM - Abdominal Pain Medical Decision Making -ddx: Medication induced gastroparesis, enteritis, gastritis, dehydration, electrolyte abnormality, constipation, SBO, cholelithiasis, pancreatitis - Patient with 1 day of diffuse abdominal pain, nausea vomiting, recently started on injectable for weight loss, has some mild diffuse tenderness, will evaluate with abdominal labs, CT abdomen pelvis and treat symptomatically with fluids, Zofran, Toradol, Pepcid and reassess. - Patient improved after above medications. She had a mild leukocytosis but no left shift, this was probably caused by her acute vomiting, afebrile, tachycardia improved with fluids and doubt bacteremia at this time. On her UA, she did have a moderate amount of leuk asked, no actual bacteria but because of the abdominal pain, vomiting and tachycardia, will treat her with a 5-day course of Bactrim. Her CT scan showed no acute surgical intra-abdominal pathology. Her symptoms seem to be twofold from the tirzepatide and so this was discussed to talk to her primary care physician about potential switching classes maybe decreasing dose before next week when she is due for the medication again. Patient and mom understanding plan of care, discharged with 5 days of Bactrim, Zofran as needed for nausea, encouraged to stay hydrated and discharged in stable condition with strict return precautions given. Lab Data 09/10/25 22:45 09/10/25 22:45 Labs/Radiology: Radiology Impressions Abdomen/Pelvis CT 09/10/25 22:50 IMPRESSION: 1. Diverticulosis, without acute diverticulitis. No small bowel obstruction. No free air. 2. No hydronephrosis or delayed nephrogram. 3. Hepatic steatosis. Laboratory Results WBC 13.49 10^3/uL (3.29-11.43) H 09/10/25 22:45 RBC 4.33 10^6/uL (3.85-5.65) 09/10/25 22:45 Hgb 12.00 g/dL (11.27-16.99) 09/10/25 22:45 Hct 37.7 % (36-47) 09/10/25 22:45 MCV 87.1 fl (85-98) 09/10/25 22:45 MCH 27.7 pg (27-33) 09/10/25 22:45 MCHC 31.8 g/dL (30-55) 09/10/25 22:45 RDW 14.0 % (12.1-15.1) 09/10/25 22:45 Plt Count 404 10^3/cmm (157-399) H 09/10/25 22:45 MPV 10.3 fL (7.4-10.4) 09/10/25 22:45 Neut % (Auto) 81.7 % 09/10/25 22:45 Lymph % (Auto) 10.8 % 09/10/25 22:45 [place] % (Auto) 5.6 % 09/10/25 22:45 Eos % (Auto) 1.3 % 09/10/25 22:45 Baso % (Auto) 0.3 % 09/10/25 22:45 Neut # (Auto) 11.02 10^3/uL (1.8-7.7) H 09/10/25 22:45 Lymph # (Auto) 1.5 10^3/uL (0.8-4.8) 09/10/25 22:45 [place] # (Auto) 0.8 10^3/uL (0.2-0.9) 09/10/25 22:45 Eos # (Auto) 0.2 10^3/uL (0.0-0.8) 09/10/25 22:45 Baso # (Auto) 0.0 10^3/uL (0.0-0.1) 09/10/25 22:45 Nucleated RBC % (auto) 0 % 09/10/25 22:45 Nucleated RBCs # 0.0 /100WBC 09/10/25 22:45 Sodium 138 mmol/L (136-145) 09/10/25 22:45 Potassium 3.9 mmol/L (3.5-5.1) 09/10/25 22:45 Chloride 104 mmol/L (98-107) 09/10/25 22:45 Carbon Dioxide 23 mmol/L (22-29) 09/10/25 22:45 Anion Gap 14.9 (5-19) 09/10/25 22:45 BUN 17 mg/dL (6-20) 09/10/25 22:45 Creatinine 0.8 mg/dL (0.5-0.9) 09/10/25 22:45 GFR Calculation 85.4 mL/min (90-130) L 09/10/25 22:45 Glucose 77 mg/dL (65-115) 09/10/25 22:45 Calculated Osmolality 286 mOsm/kg (285-295) 09/10/25 22:45 Calcium 9.0 mg/dL (8.5-10.5) 09/10/25 22:45 Phosphorus 2.6 mg/dL (2.5-4.5) 09/10/25 22:45 Magnesium 2.2 mg/dL (1.7-2.3) 09/10/25 22:45 Total Bilirubin 0.3 mg/dL (0.15-1.2) 09/10/25 22:45 AST 18 U/L (0-32) 09/10/25 22:45 ALT 29 U/L (0-33) 09/10/25 22:45 Alkaline Phosphatase 106 U/L (35-105) H 09/10/25 22:45 Total Protein 7.6 g/dL (6.6-8.7) 09/10/25 22:45 Albumin 4.0 g/dL (3.5-5.2) 09/10/25 22:45 Globulin 3.6 g/dL (1.3-4.6) 09/10/25 22:45 Lipase 18 U/L (13-60) 09/10/25 22:45 HCG, Qual Negative (Negative) 09/10/25 22:45 Urine Color Yellow (Yellow) 09/11/25 00:04 Urine Appearance Clear (CLEAR) 09/11/25 00:04 Urine pH 5.0 (5-7) 09/11/25 00:04 Ur Specific [place] 1.030 (1.005-1.030) 09/11/25 00:04 Urine Protein Trace (Negative) A 09/11/25 00:04 Urine Glucose (UA) Negative (Normal) 09/11/25 00:04 Urine Ketones Trace (Negative) 09/11/25 00:04 Urine Blood Negative (Negative) 09/11/25 00:04 Urine Nitrate Negative (Negative) 09/11/25 00:04 Urine Bilirubin Negative (Negative) 09/11/25 00:04 Urine Urobilinogen 1.0 mg/dL (Negative) 09/11/25 00:04 Ur Leukocyte Esterase 1+ (Negative) A 09/11/25 00:04 Urine RBC 0-2 /hpf (0-2) 09/11/25 00:04 Urine WBC 21-50 /hpf (0-5) H 09/11/25 00:04 Ur Squamous Epith Cells 0-5 /hpf (0-5) 09/11/25 00:04 Amorphous Sediment Not Reportable 09/11/25 00:04 Urine Bacteria None seen /hpf (NONE) 09/11/25 00:04 Hyaline Casts 0.81 /lpf 09/11/25 00:04 All radiology interpretation(s) finalized by discharge Discharge Plan Discharge Patient Disposition: Home Clinical Impression: Gastroparesis, UTI (urinary tract infection), Dehydration Condition: Stable Prescriptions: New sulfamethoxazole-trimethoprim [Bactrim DS] 800-160 mg tablet 1 tab PO BID Qty: 10 0RF ondansetron 4 mg tablet,disintegrating 4 mg PO Q8H PRN (Reason: nausea and vomiting) Qty: 14 0RF No Action cephalexin 500 mg capsule 500 mg PO BID Qty: 14 0RF quetiapine 200 mg tablet extended release 24 hr 200 mg PO .7 pm Qty: 30 6RF Rx Instructions: Take one tablet at 7 pm Nexplanon 68 mg implant 1 implant subdermal Q36M topiramate [Topamax] 25 mg tablet 25 mg PO .noon Qty: 30 6RF paroxetine HCl 30 mg tablet 30 mg PO .6 pm Qty: 30 6RF Rx Instructions: Take one tablet at 6 pm propranolol 10 mg tablet 10 mg PO BID Qty: 60 6RF sennosides-docusate sodium [Senna with Docusate Sodium] 8.6-50 mg tablet 1 tab-cap PO BID PRN (Reason: constipation) Qty: 14 0RF acetaminophen [Tylenol Extra Strength] 500 mg Tablet 1,000 mg PO QID PRN (Reason: Pain) Discharge Orders: Discharge ED (Routine); Ordered 09/11/25 Ordered By: Daniel Hermosillo Referrals: Diana Brooks PA [Primary Care Provider, Physicians Continuous Improvement Intern] Discharge Diet: Advance as tolerated Discharge Activity: Resume usual activity Patient Instructions: Abdominal Pain (ED), Opioid Safety, Pain Management, Patient Portal & Jessie Instructions Activity Restrictions/Additional Instructions: You were seen for your abdominal pain and vomiting, you were evaluated with labs and a CT scan which were ultimately reassuring. The most likely cause of your symptoms was a side effect of your new weight loss medication, further discussed this with your primary care physician before your next dose to see if it should be changed or decreased. You were also found to have a urinary tract infection, to treat this, take the Bactrim twice a day for total of 5 days. In addition, use the Zofran 4 mg every 8 hours as needed to ensure you stay hydrated. Return to the ED with continuous vomiting, severe worsening of your abdominal pain, fevers that do not improve with Tylenol, any other emergent concerns. Print Language: Iraqi Coding Level of Care Code ED Hydraulic Boom Operator for Ed Byers
[2025-09-10 23:17] VITALS: BP 135/99; PULSE 91; O2SAT 97
[2025-09-10 23:20] LABS: Alanine Aminotransferase 29 U/L (0-33); Albumin Level 4.0 g/dL (3.5-5.2); Alkaline Phosphatase 106 U/L (35-105); Anion Gap 14.9 (5-19); Aspartate Amino Transferase 18 U/L (0-32); Blood Urea Nitrogen 17 mg/dL (6-20); Calcium 9.0 mg/dL (8.5-10.5); Carbon Dioxide 23 mmol/L (22-29); Chloride 104 mmol/L (98-107); Globulin 3.6 g/dL (1.3-4.6); Glucose 77 mg/dL (65-115); Lipase 18 U/L (13-60); Magnesium 2.2 mg/dL (1.7-2.3); Osmolality Calculated 286 mOsm/kg (285-295); Potassium 3.9 mmol/L (3.5-5.1); Sodium 138 mmol/L (136-145); Total Protein 7.6 g/dL (6.6-8.7)
[2025-09-10 23:34] LABS: HCG, Serum Qual Negative (Negative)
[2025-09-11] VITALS: BP 140/95; PULSE 103; O2SAT 98
[2025-09-11] MEDS: ondansetron 2 mg/ML SDV 2 mL 4 MG IVP (00:05)
[2025-09-11] MEDS: iohexol 350 mg/mL 500 mL Btl (per mL) IV (00:08)
[2025-09-11 00:15] LABS: Glucose Urine UA Negative (Normal); Nitrate Urine Negative (Negative); Specific Gravity, Urine 1.030 (1.005-1.030)
[2025-09-11 00:18] LABS: Add Urine Microscopic? YES
[2025-09-11 00:36] VITALS: BP 140/95; PULSE 93; O2SAT 98
[2025-09-11] MEDS: sulfamethoxazole-trimeth DS 160-800 mg Tablet 1 TAB PO (00:44)
[2025-09-11 01:39] LABS: CRP High Sensitivity Cardiac 3.590 mg/dL (0.0-0.3)
== END 2025-09-11 00:48 | disposition home or self-care (01) ==
PROVIDERS: Emergency Provider Student in an Organized Health Care Education/Training Program; PCP Physician Assistant
DX: K31.84 Gastroparesis (principal); N39.0 Urinary tract infection, site not specified; E86.0 Dehydration
CPT/HCPCS: 74177; 80053; 81001; 83690; 83735; 84100; 84703; 85025; 86141; 87086; 96361; 96374; 96375; 99285; J1885; J2405; J3490; J7030; J9999